=== PATIENT | male | born 1965 | race Caucasian/White ===

== ENCOUNTER 2018-09-06 18:53 | Emergency (ER) | payer SELFPAY ==
[2018-09-06 18:56] VITALS: BP 128/86; PULSE 94; RESP 16; TEMP 36.6; O2SAT 99; BMI 15.4
--- NOTE | 2018-09-06 19:02 | ED.RN ---
this nurse did not visualize bruising or swelling to area of concern by pt.
--- NOTE | 2018-09-06 19:30 | CT_ITS ---
STUDY: CT BRAIN WITHOUT CONTRAST REASON FOR EXAM: Male, 53 years old. Trauma. RADIATION DOSAGE (If Supplied By Facility): CTDIvol = ( 60.81 ) mGy, DLP = ( 1181.11 ) mGycm TECHNIQUE: Transaxial CT imaging of the brain was performed without administration of intravenous contrast material. Individualized dose optimization techniques were used for this CT. COMPARISON: None. FINDINGS: Normal soft tissue structures. Normal calvarium. Normal size ventricles and extra-axial spaces for the patient's age. Normal white matter tracts of the cerebral hemispheres. Normal basal ganglia and thalami. Normal brainstem. Normal cerebellum. There is a extra-axial low-attenuation focus within the posterior aspect of the posterior fossa which may be secondary to an arachnoid cyst or ned cisterna magna. There is no intracranial hemorrhage. There are no findings of an acute ischemic infarction. Normal visualized paranasal sinuses. CT/Brain/Head without Contrast IMPRESSION: No acute intracranial process. Electronically Signed: Raisa Michael MD at 20:03 EDT Tel , Service support ,
--- NOTE | 2018-09-06 19:30 | CT_ITS ---
STUDY: CT CHEST WITHOUT CONTRAST REASON FOR EXAM: Male, 53 years old. Trauma, fall last night. RADIATION DOSAGE (If Supplied By Facility): CTDIvol = ( 5.71 ) mGy, DLP = ( 243.16 ) mGycm TECHNIQUE: Transaxial imaging was performed without the administration of intravenous contrast material. Individualized dose optimization techniques were used for this CT. COMPARISON: July 30, 2016. FINDINGS: The lungs are hyperinflated. There are emphysematous changes. There is biapical scarring. There are calcifications of the coronary arteries. There is minimal pneumomediastinum. Normal unenhanced pulmonary arteries. Normal aorta arch and descending thoracic aorta. There are trace dependent secretions within the trachea. There are multi-level degenerative changes of the thoracic spine. There are old right posterior rib fractures. The limited images of the upper abdomen demonstrate peripheral calcifications of the abdominal aorta. CT/Chest without Contrast IMPRESSION: Pneumomediastinum, may be secondary to esophageal or tracheal bronchial perforation. Emphysema. Atherosclerosis. N.B. : The above information has been verbally conveyed by Raisa Michael MD to Jovan Ybarra MD, on 09/06/2018 20:24:40 (ET). Electronically Signed: Raisa Michael MD at 20:24 EDT Tel , Service support ,
--- NOTE | 2018-09-06 19:58 | ED.VISSUMM ---
- ER Visit Summary Date of Service: 09/06/18 Chief Complaint: Fall History of Present Illness: The patient is a 53 M who states that about 6 days ago he was walking down the road when he stepped in a hole and fell striking his head on the ground. He states he also struck his back. He believes he lost consciousness. He states that his head is recovered but he continues to have pain in the right posterior shoulder region. Denies coughing any blood or shortness of breath. He has had prior pneumothorax and rib fractures. Physical Examination: Afebrile vital signs stable Gen: Well-nourished well-developed Head: Normocephalic atraumatic Eyes: Perrl EOMI ENT: TMs clear no rhinorrhea moist mucous membranes Neck: Supple no lymphadenopathy no JVD nontender CVS: Regular rate rhythm no murmurs normal S1-S2 Respiratory: No distress clear to auscultation bilaterally chest nontender Abdomen: Soft nontender nondistended normal bowel sounds no masses Back: Tender to palpation in the right scapular rib region. No ecchymosis noted. Extremity: Nontender no edema Skin: Normal color no rash Neuro: alert orientated ?3 CN II-XII intact normal strength sensation reflexes gait cerebellar Psych: Normal affect normal mood Test Results: CT brain and noncontrasted chest was obtained. No obvious fracture is seen. He has noted small amount of pneumomediastinum. Emergency Department Course and Treatment: CT findings were discussed with the patient and he notes a significant amount of coughing recently. He is a smoker. I suspect this is related to a degree of trauma to the bronchial tree. He was placed on Augmentin for prophylaxis. He was advised on return instructions and notes understanding. Impression: 1. Right rib contusion 2. Pneumomediastinum This note was generated with [employer] dictation software. It may contain incorrect words, spelling, and punctuation that were not noted in review of the chart prior to signing ED Disposition - Plan for ED Patient: Disposition: Home or Assisted Living Chief Complaint: Fall Prescriptions: Amox/Clavulanate Tablet [Augmentin Tablet] 875 mg PO Q12H #20 tab Referrals: Darrell Moreno,Jodi Munoz [Primary Care Provider] - 1 Week Additional Instructions: Return if fever, crunching of chest, chest pain worsening or concerns
[2018-09-06 21:01] VITALS: BP 132/85; PULSE 85; RESP 14; O2SAT 99
== END 2018-09-06 21:02 | disposition home or self-care (01) ==
PROVIDERS: Emergency Provider Emergency Medicine
DX: S20.211A Contusion of right front wall of thorax, initial encounter (principal); J98.2 Interstitial emphysema; F17.200 Nicotine dependence, unspecified, uncomplicated; Z79.51 Long term (current) use of inhaled steroids; W17.2XXA Fall into hole, initial encounter; Y93.01 Activity, walking, marching and hiking; Y92.410 Unspecified street and highway as the place of occurrence of the external cause; Y99.8 Other external cause status
CPT/HCPCS: 70450; 71250; 99282

== ENCOUNTER 2019-01-30 16:48 | Emergency (ER) | payer OTHER, SELFPAY ==
[2019-01-30] VITALS (7 sets, daily range): BP systolic 109–126; BP diastolic 75–81; PULSE 105–112; RESP 16–23; TEMP 36.4–36.8; O2SAT 95–99; BMI 15.5
--- NOTE | 2019-01-30 17:06 | EKG12_ITS ---
Test Reason : SOB Blood Pressure : / mmHG Vent. Rate : 097 BPM Atrial Rate : 097 BPM P-R Int : 112 ms QRS Dur : 076 ms QT Int : 316 ms P-R-T Axes : 065 074 073 degrees QTc Int : 401 ms Normal sinus rhythm Normal ECG Confirmed by ESTEBAN MARTELL, TD ([id number]), graphic editor FIORELLA KIM ([id number]) on 01/31/2019 1:13:33 PM Referred By: FRANCIE Confirmed By:TD ORELLANA MD
--- NOTE | 2019-01-30 17:08 | ED.VISSUMM ---
- ER Visit Summary Date of Service: 01/30/19 Chief Complaint: Shortness of breath History of Present Illness: The patient is a 53 M who presents with shortness of breath that has been getting worse over the past 4 days. Patient states he is having some cough with green sputum production. Patient admits to some rhinorrhea and bilateral ear pain. Patient denies any fevers or chills. Patient denies any chest pain. Patient states his breathing is worse with exertion. Denies any lower extremity swelling. Patient denies any recent travel. Patient denies any recent surgery. Patient denies any orthopnea. Physical Examination: Vital signs are stable except for mild tachycardia of 111 and a mild tachypnea of 23. Patient is in no acute distress. Patient is afebrile. Oral mucosa is pink and moist. Neck is supple. Trachea is midline. There is no JVD noted. Heart was regular and tachycardic. Lungs showed diffuse expiratory wheezing. There is adequate respiratory effort. There is no retractions noted. Abdomen is soft and nontender. Cranial nerves II through XII are intact. There are no focal motor or sensory deficits noted. Test Results: CBC and metabolic profile were obtained and were essentially within normal limits. Chest x-ray does not show any acute cardiopulmonary process. EKG showed normal sinus rhythm with a rate of 87. There are no acute ST or T wave changes. Emergency Department Course and Treatment: Patient was given a DuoNeb aerosol and prednisone here. Patient felt better on reevaluation. Patient was instructed to follow-up with his primary care physician in 5-7 days. Patient was instructed continue with his inhaler as prescribed. Patient was given a prescription for prednisone. Patient understood and was agreeable with the plan. All questions were answered. Disposition: Discharge home Impression: COPD exacerbation This note was generated with [employer] dictation software. It may contain incorrect words, spelling, and punctuation that were not noted in review of the chart prior to signing ED Disposition - Plan for ED Patient: Disposition: Home or Assisted Living Diagnosis: COPD exacerbation Instructions: ED COPD Flare Prescriptions: predniSONE tablet 60 mg PO DAILY #15 tab Referrals: Jodi Diaz [Primary Care Provider] - 5-7 Days
[2019-01-30] MEDS: Ipratropium/Albuterol Sulfate 3 ML AMPUL.NEB INHALATION (17:22)
[2019-01-30] MEDS: predniSONE 20 MG Tablet 60 MG PO (17:31)
--- NOTE | 2019-01-30 17:35 | RAD_ITS ---
STUDY: X-RAY CHEST REASON FOR EXAM: Male, 53 years old. SOB. TECHNIQUE: PA and lateral chest. COMPARISON: 10/16/2017. FINDINGS: There is pulmonary hyperinflation, consistent with emphysematous changes. No vascular congestion or acute pulmonary inflammatory change. There is mild apical pleural thickening. There is no evidence of pleural effusion. Normal size heart. Normal mediastinum and akash. Normal visualized pulmonary arteries. Normal visualized aortic arch and descending thoracic aorta. Normal visualized thoracic spine. Old healed rib fractures are noted on the right. There is no demonstrated abnormality of the visualized soft tissue structures of the upper abdomen. RAD/Chest PA and Lateral IMPRESSION: 1. Hyperinflation consistent with COPD. No acute findings. Electronically Signed: Harika Babin MD at 19:42 EDT Tel , Service support ,
[2019-01-30 17:54] LABS: Absolute Lymphocyte Count 1.08 X10^3/ul (0.83-4.51); Basophil# 0.03 X10^3/uL; Basophil% 0.2 % (0-1); Eosinophil# 0.05 X10^3/uL; Eosinophils% 0.4 % (0-5); Hematocrit 43.1 % (40-54); Hemoglobin 14.3 g/dl (13.0-16.5); Lymphocyte # 1.08 X10^3/ul (4.0); Lymphocyte % 8.1 % (19-41); Mean Corp Hgb Conc 33.2 g/gl (32-36); Mean Corpuscular Hgb 32.6 pg (27.0-32.0); Mean Corpuscular Volume 98.2 fL (80-94); Mean Platelet Vol. 9.2 fl (6.2-12.0); Monocyte# 1.12 X10^3/uL; Monocyte% 8.4 % (0-10); Neutrophil # 10.97 X10^3/uL (2.7-7.7); Neutrophil % 82.7 % (47-70); Platelet Count 290 K/mm3 (150-450); RBC Distribution Width SD 46.8 fl (35.1-43.9); Red Blood Count 4.39 M/mm3 (4.6-6.2); White Blood Count 13.3 K/mm3 (4.4-11.0)
[2019-01-30 17:56] LABS: POSITIVE COUNT NO; POSITIVE DIFFERENTIAL NO; POSITIVE MORPHOLOGY NO
[2019-01-30 18:03] LABS: Anion Gap 4 (5-15); BUN 20 mg/dL (7-18); Calcium,Total 9.1 mg/dL (8.5-10.1); Chloride 98 mmol/L (98-107); Creatinine, Serum 0.72 mg/dL (0.70-1.30); EST Glomerular Filtration Rate 122 mL/min (>60); Est Glom Filt Rate - Afr Amer 147 mL/min (>60); Estimated Creatinine Clearance 88.75 ml/min; Glucose 101 mg/dL (74-106); Potassium 4.8 mmol/L (3.5-5.1); Sodium Level 137 mmol/L (136-145)
--- NOTE | 2019-01-30 19:31 | ED.RN ---
Called x-ray as chest x-ray was taken at 1740. CadenceMD will call radiologist and have it read now.
--- NOTE | 2019-01-30 19:32 | ED.RN ---
Per Dr. Watson, pt not a sepsis patient, COPD exacerbation. Sepsis completed.
== END 2019-01-30 20:32 | disposition home or self-care (01) ==
PROVIDERS: Emergency Provider Emergency Medicine
DX: J44.1 Chronic obstructive pulmonary disease with (acute) exacerbation (principal); Z72.0 Tobacco use; Z79.51 Long term (current) use of inhaled steroids
CPT/HCPCS: 71046; 80048; 85025; 93005; 94640; 99285; A4216

== ENCOUNTER 2019-03-26 05:32 | Inpatient (IN) | payer OTHER, SELFPAY ==
[2019-01-30 16:51] VITALS: BMI 15.5
[2019-03-26] VITALS (15 sets, daily range): BP systolic 109–139; BP diastolic 74–88; PULSE 73–121; RESP 16–22; TEMP 36.4–36.8; O2SAT 92–100; BMI 15.5; BMI 14.1; BMI 14.2
--- NOTE | 2019-03-26 05:41 | RAD_ITS ---
STUDY: X-RAY CHEST REASON FOR EXAM: Male, 53 years old. Chest pain. TECHNIQUE: AP portable chest. COMPARISON: January 30, 2019. FINDINGS: The lungs are clear and expanded. There is no demonstrated pleural abnormality. Lungs are hyperinflated. Normal size heart. Normal mediastinum and akash. Normal visualized pulmonary arteries. Normal visualized aortic arch and descending thoracic aorta. Normal visualized thoracic spine. Old right posterior rib fracture. There is no demonstrated abnormality of the visualized soft tissue structures of the upper abdomen. RAD/Chest 1 View (Portable) IMPRESSION: COPD unchanged. Electronically Signed: Bull Enriquez MD at 6:22 EDT , Service support ,
--- NOTE | 2019-03-26 05:41 | EKG12_ITS ---
Test Reason : SOB Blood Pressure : / mmHG Vent. Rate : 066 BPM Atrial Rate : 066 BPM P-R Int : 114 ms QRS Dur : 084 ms QT Int : 386 ms P-R-T Axes : 069 079 076 degrees QTc Int : 404 ms Normal sinus rhythm T-Wave Abnormaltiy: Peaked:Consider Hyperkalemia Confirmed by AUREA MARTELL, BRISEYDA ([id number]), medical transcription editor FIORELLA KIM ([id number]) on 03/28/2019 1:25:28 PM Referred By: Antonette Jeffrey Confirmed By:BRISEYDA VILLAR MD
[2019-03-26] MEDS: MethylPREDNISolone 125 MG/2 ML Vial IV (05:46)
--- NOTE | 2019-03-26 05:50 | ED.DCSUM_ITS ---
- ER Visit Summary Date of Service: 03/26/19 Chief Complaint: Shortness of breath History of Present Illness: The patient is a 53 M with shortness of breath. Symptoms started gradually over the past 2 days. Patient has a history of similar symptoms in the past with COPD. His symptoms today are associated with cough and sputum. He has occasional and intermittent rib pain from coughing. Denies any history of heart disease or blood clots. He is a smoker. Physical Examination: Afebrile and vital signs unremarkable. Pulse ox 92% on room air. Patient appears nontoxic and in no acute distress. He is thin and cachectic. Heart regular rate and rhythm. Lungs show expiratory wheeze in all ambrose. Abdomen soft. Extremities nontender with no edema. Test Results: EKG showed sinus rhythm at a rate of 66. No sign of acute ischemia or infarction pattern. Chest x-ray and blood work pending. Emergency Department Course and Treatment: Patient placed on oxygen 2 L by nasal cannula. He was monitored. EKG was unremarkable. Patient was treated with Solu-Medrol and DuoNeb while awaiting results. Chest x-ray and lab work showed no acute abnormalities. On reevaluation, wheezing has resolved. Patient attempted to ambulate on pulse ox. He dropped to 88% on room air. He felt short of breath and lightheaded. I contacted the hospitalist for admission for further care. Treatment Plan: As above Disposition: Admission Impression: 1. COPD exacerbation This note was generated with [employer] dictation software. It may contain incorrect words, spelling, and punctuation that were not noted in review of the chart prior to signing ED Disposition - Plan for ED Patient: Instructions: ED COPD Flare Prescriptions: Albuterol Inhaler [Ventolin Hfa] 1 - 2 puff INHALATION Q4H PRN PRN #1 inhaler PRN Reason: Wheezing Prednisone 10 mg PO UD #33 tab Doxycycline 100 mg PO BID #20 cap Referrals: Jodi Diaz [Primary Care Provider] -
[2019-03-26 05:52] LABS: Absolute Lymphocyte Count 2.09 X10^3/ul (0.83-4.51); Absolute Neutrophil Count 6.6 X10^3/uL (2.0-7.7); Basophil# 0.03 X10^3/uL; Basophil% 0.3 % (0-1); Eosinophil# 0.15 X10^3/uL; Eosinophils% 1.5 % (0-5); Hematocrit 41.7 % (40-54); Hemoglobin 13.8 g/dl (13.0-16.5); Lymphocyte # 2.09 X10^3/ul (4.0); Lymphocyte % 20.7 % (19-41); Mean Corp Hgb Conc 33.1 g/gl (32-36); Mean Corpuscular Hgb 31.4 pg (27.0-32.0); Mean Platelet Vol. 8.6 fl (6.2-12.0); Monocyte# 1.23 X10^3/uL; Monocyte% 12.2 % (0-10); Neutrophil # 6.59 X10^3/uL (2.7-7.7); Neutrophil % 65.2 % (47-70); Platelet Count 346 K/mm3 (150-450); RBC Distribution Width CV 13.3 % (11.6-14.6); RBC Distribution Width SD 44.6 fl (35.1-43.9); Red Blood Count 4.39 M/mm3 (4.6-6.2); White Blood Count 10.1 K/mm3 (4.4-11.0)
[2019-03-26] MEDS: Ipratropium/Albuterol Sulfate 3 ML AMPUL.NEB INHALATION ×4 (05:52→18:43)
[2019-03-26 05:53] LABS: POSITIVE COUNT NO; POSITIVE DIFFERENTIAL NO; POSITIVE MORPHOLOGY NO
[2019-03-26 06:08] LABS: Anion Gap 4 (5-15); BUN 9 mg/dL (7-18); BUN/Creat Ratio 13.7 RATIO (10-20); Calcium,Total 8.9 mg/dL (8.5-10.1); Chloride 100 mmol/L (98-107); Creatinine, Serum 0.66 mg/dL (0.70-1.30); EST Glomerular Filtration Rate 134 mL/min (>60); Est Glom Filt Rate - Afr Amer 162 mL/min (>60); Estimated Creatinine Clearance 96.82 ml/min; Glucose 107 mg/dL (74-106); Potassium 4.4 mmol/L (3.5-5.1); Sodium Level 138 mmol/L (136-145)
--- NOTE | 2019-03-26 06:51 | HP.PCM_ITS ---
Problem List (1) COPD exacerbation Status: Acute (2) Tobacco abuse Status: Chronic (3) Severe malnutrition Status: Chronic History of Present Illness Date of Admission: 03/26/19 Chief Complaint: Dyspnea The patient is a 53 y/o M w/ PMHx: Tobacco use, Chronic COPD who presents to the [facility] ED on 03/26/19 with history of progressively worsening dyspnea, wheezing, cough with increased sputum of yellow/green color without fever or chills w/ associated pleuritic chest discomfort primarily with coughing x 2 days without any recent ill contacts. He does continue to smoke ~ 1 ppd. Work-up in the ED included T 97.5, heart rate 76, BP 125/88, respiratory rate 20, 92% on room air however with exertion became hypoxic and 88%, improved to 99% on 2 L nasal cannula, CBC with W BC 10.1, hemoglobin 13.8, platelet 346 without left shift, BMP with carbon dioxide 34, glucose 107, troponin less than 0.015, EKG with no acute evidence of ischemia, chest x-ray with chronic COPD changes. In the ED patient ministered Solu-Medrol 125 mg IV x1 as well as DuoNeb therapy. Patient notes feeling mildly improved with treatments but with exertion in the ED is hypoxia. Past Medical History Past Medical History (Chronic Problems): Chronic Problems Tobacco abuse (Chronic) Severe malnutrition (Chronic) Allergies No Known Allergies Allergy (Verified 03/26/19 05:37) Home Medications: Ambulatory Orders Medication Instructions Recorded Albuterol Inhaler [Ventolin Hfa] 1 - 2 puff INHALATION Q4H PRN PRN 10/16/17 #1 inhaler Albuterol Inhaler [Ventolin Hfa] 1 - 2 puff INHALATION Q4H PRN PRN 03/26/19 #1 inhaler Budesonide/Formoterol 160/4.5 2 puff INHALATION BID 03/26/19 [Symbicort 160/4.5 Mcg Inhaler (SP)] Doxycycline 100 mg PO BID #20 cap 03/26/19 Prednisone 10 mg PO UD #33 tab 03/26/19 Surgical History: - - Hx PTX s/p chest tube placement. Psychiatric History: No pertinent psych hx Lives: Roommate Smoking Status: Current every day smoker - Approximately 1 pack/day cigarette tobacco use. Tobacco Use: Cigarettes Alcohol: Occasional - Patient drinks 1, 24 ounce beer daily. Drugs: None - *Family History Maternal History Items: - - Patient with a maternal and paternal family history of chronic lung disease, chronic COPD, both tobacco users. Paternal History Items: - - Patient with a maternal and paternal family history of chronic lung disease, chronic COPD, both tobacco users. Review of Systems Constitutional: Reports: Anorexia, Malaise, Weakness, Fatigue. Denies: Chills, Fever, Weight Change HEENT: Denies: Head Aches, Sinus Congestion, Sinus Drainage Cardiovascular: Reports: Chest Pain. Denies: Palpitations Respiratory: Reports: Cough, Shortness of Breath, Shortness of breath at rest, Shortness of breath upon exertion, Sputum production, Wheezing Gastrointestinal: Denies: Abdominal Pain, Nausea, Vomiting Genitourinary: Denies: Dysuria Musculoskeletal: Denies: Joint Pain, Joint Tenderness Skin: Denies: Rash, Wounds Neurological: Denies: Numbness, Tingling, Focal weakness Psychiatric: Denies: Anxiety, Depression, Homicidal Ideations, Suicidal Ideations Hematologic/ Lymphatic: Denies: Easy Bruising, Easy Bleeding VTE Information - Inpt Only VTE Present on Admission: No VTE Mechan Device Prophylaxis: SCD's VTE Pharm Prophylaxis ordered?: Yes Patient Problems: Active and Suspected Problems COPD exacerbation (Acute) Subjective: Seated upright in ED bed, fatigued appearance, coughing during examination. Objective: Physical Examination: General: awake, alert, oriented x 3 and cooperative, seated upright in the ED bed, fatigued appearance, no acute distress. Skin: normal color, turgor, no icterus, cyanosis. HEENT: AT/NC, EOMI, PERRLA, moderately dry MM, no carotid bruits or JVD noted. Lungs: Diffusely diminished breath sounds, greater bases, coughing with increased effort attempts, currently no rales, rhonchi or wheezing but very poor air movement. Heart: Regular rate and rhythm; no gallop, rub audible. Abdomen: soft, thin cachectic habitus, NTTP, ND, normal BS, no HSM. Extremities: no cyanosis, clubbing, or edema. Neurological: patient awake, alert, oriented x 3; cognitive function intact; pupils equally reactive to light and accomodation; cranial nerves II-XII grossly normal, moving all 4 extremities, no focal deficits, strength moderately to severely global decrease secondary to acute presentation. Psychiatric: affect appears fatigued, no acute evidence of depressive or anxiety feelings. - Physical Exam Vital Signs Temp Pulse Resp BP Pulse Ox 97.5 F L 74 16 125/88 H 99 03/26/19 05:32 03/26/19 05:53 03/26/19 05:53 03/26/19 05:32 03/26/19 05:41 Oxygen Flow Rate (L/min) 2 Oxygen Delivery Method Nasal Cannula Weight: 117 lb 15.157 oz Body Mass Index (BMI) 15.5 Laboratory Tests Past 24 Hrs 03/26/19 03/26/19 05:42 05:42 WBC 10.1 RBC 4.39 L Hgb 13.8 Hct 41.7 MCV 95.0 H MCH 31.4 MCHC 33.1 RDW 13.3 RDW Differential 44.6 H Plt Count 346 MPV 8.6 Immature Gran % (Auto) 0.100 Neut % (Auto) 65.2 Lymph % (Auto) 20.7 Evans % (Auto) 12.2 H Eos % (Auto) 1.5 Baso % (Auto) 0.3 Absolute Neuts (auto) 6.6 Absolute Lymphs (auto) 2.09 Total Counted Not Reportable Sodium 138 Potassium 4.4 Chloride 100 Carbon Dioxide 34.0 H Anion Gap 4 L BUN 9 Creatinine 0.66 L Estim Creat Clear Calc 96.82 Est GFR (MDRD) Af Amer 162 Est GFR (MDRD) Non-Af 134 BUN/Creatinine Ratio 13.7 Glucose 107 H Calcium 8.9 Troponin I < 0.015 Assessment/Plan All Active Problems COPD exacerbation (Acute) The patient is a 53 y/o M w/ PMHx: Tobacco use, Chronic COPD who presents to the [facility] ED on 03/26/19 with history of progressively worsening dyspnea, wheezing, cough with increased sputum without fever or chills w/ associated pleuritic ches t discomfort primarily with coughing x 2 days. (1) Acute on chronic COPD exacerbation w/ Hypoxia: Work-up in the ED included T 97.5, heart rate 76, BP 125/88, respiratory rate 20, 92% on room air however with exertion became hypoxic and 88%, improved to 99% on 2 L nasal cannula, CBC with W BC 10.1, hemoglobin 13.8, platelet 346 without left shift, BMP with carbon dioxide 34, glucose 107, troponin less than 0.015, EKG with no acute evidence of ischemia, chest x-ray with chronic COPD changes. Will admit to [facility], maintain on oxygen with wean as tolerated to room air, continue ATC duonebs, PRN albuterol, IV methylprednisolone, HOB, IS parameters, defer abx given afebrile, no marked WBC elevation or L shift, requested sputum cultures. (2) Tobacco Abuse: Encouraged cessation, inpatient consultation per RT, NR if desired. (3) Severe Protein Calorie Malnutrition: Evidenced per BMI, habitus, muscle and fat loss, nutrition consulted. (4) DVT Prophylaxis: SCDs, lovenox. Code Visit OBSV E&M: 18085 Initial observation care L3
[2019-03-26] MEDS: 0.9% Normal Saline 1,000 ML 125 ML IV (08:47)
[2019-03-26] MEDS: Enoxaparin 40 MG/0.4 ML Syringe SC (09:43)
[2019-03-26] MEDS: guaiFENesin 1,200 MG Tablet 1200 MG PO ×2 (09:43→21:06)
[2019-03-26] MEDS: 0.9% NaCl Peripheral Flush Adult/Peds IV (13:51)
--- NOTE | 2019-03-26 13:54 | NURSING ---
I awoke the patient at this time. When assessing vitals I noted the heart rate was fluctuating between 71-121. Patient reports a sharp chest pain to left upper chest/shoulder. Called for EKG, texted.
--- NOTE | 2019-03-26 14:56 | EKG12_ITS ---
Test Reason : CP
[2019-03-26 15:18] LABS: Magnesium 1.8 mg/dL (1.6-2.6)
[2019-03-26] MEDS: Aspirin 81 MG TAB.CHEW PO (15:31)
[2019-03-26] MEDS: MELATONIN 3 MG TABLET PO (21:07)
[2019-03-27] VITALS (16 sets, daily range): BP systolic 108–133; BP diastolic 70–89; PULSE 65–115; RESP 16–24; TEMP 36.5–36.8; O2SAT 82–97
[2019-03-27] MEDS: Albuterol 2.5 MG/3 ML VIAL.NEB. INHALATION (05:42)
[2019-03-27 07:11] LABS: Absolute Lymphocyte Count 1.37 X10^3/ul (0.83-4.51); Absolute Neutrophil Count 15.2 X10^3/uL (2.0-7.7); Basophil# 0.01 X10^3/uL; Basophil% 0.1 % (0-1); Hematocrit 40.6 % (40-54); Hemoglobin 13.6 g/dl (13.0-16.5); Lymphocyte # 1.37 X10^3/ul (4.0); Lymphocyte % 7.7 % (19-41); Mean Corp Hgb Conc 33.5 g/gl (32-36); Mean Corpuscular Volume 95.5 fL (80-94); Mean Platelet Vol. 9.1 fl (6.2-12.0); Monocyte# 1.18 X10^3/uL; Monocyte% 6.6 % (0-10); Neutrophil # 15.18 X10^3/uL (2.7-7.7); Neutrophil % 85.3 % (47-70); Platelet Count 378 K/mm3 (150-450); RBC Distribution Width CV 13.3 % (11.6-14.6); RBC Distribution Width SD 46.3 fl (35.1-43.9); Red Blood Count 4.25 M/mm3 (4.6-6.2); White Blood Count 17.8 K/mm3 (4.4-11.0)
[2019-03-27 07:12] LABS: POSITIVE COUNT NO; POSITIVE DIFFERENTIAL NO; POSITIVE MORPHOLOGY NO
[2019-03-27] MEDS: Ipratropium/Albuterol Sulfate 3 ML AMPUL.NEB INHALATION ×5 (07:16→22:54)
[2019-03-27 07:31] LABS: Anion Gap 5 (5-15); BUN 16 mg/dL (7-18); BUN/Creat Ratio 35.6 RATIO (10-20); Chloride 102 mmol/L (98-107); Creatinine, Serum 0.45 mg/dL (0.70-1.30); EST Glomerular Filtration Rate 208 mL/min (>60); Est Glom Filt Rate - Afr Amer 251 mL/min (>60); Estimated Creatinine Clearance 129.55 ml/min; Glucose 140 mg/dL (74-106); Potassium 4.5 mmol/L (3.5-5.1); Sodium Level 137 mmol/L (136-145)
--- NOTE | 2019-03-27 08:13 | PCM.CONS.PUL ---
Reason for Consult Date of Consultation: 03/27/19 Reason for Consultation: COPD exacerbation History of Present Illness: The patient is a 53-year-old male, with a history as outlined below, who presented to the emergency department on March 26 with shortness of breath and productive cough. The patient has a known history of COPD and continuous tobacco dependency. Pulmonary function studies completed in December 2014 revealed evidence of severe COPD with an FEV1 of 45% of predicted. There was no significant bronchodilator response. There was evidence of air trapping and reduction in diffusing capacity as well. The patient reports that he has baseline exertional shortness of breath, which progressed over the days leading up to his hospitalization. In addition, he reports that his current cough including sputum production, is out of the ordinary for him. He does have an extensive smoking history of approximately 80 pack years, but has cut back recently to smoking 1 pack of cigarettes per day. He is currently employed working as a cook at the [employer]. He is insistent that he plans to quit smoking completely upon discharge from the hospital. The patient does not currently utilize supplemental oxygen at his baseline. He has never been evaluated by a manifest/order organizer print orders previously. The patient is currently prescribed both Symbicort and as needed albuterol on an outpatient basis. He states that he has been utilizing his Symbicort in excess of what it is currently prescribed, along with his rescue inhaler multiple times per day. He also reports that he has been slowly losing weight unintentionally, but is unable to quantify exactly how much weight in particular. On presentation to the emergency department, the patient was noted to be afebrile and hemodynamically stable. He was initially maintaining appropriate oxygen saturations on room air. Despite this, he was placed on 2 L/min of supplemental oxygen. Laboratory evaluation revealed no evidence of a leukocytosis. Chemistry profile was significant for an elevated serum bicarbonate of 34. Troponin was negative. Plain film chest x-ray revealed hyperinflated lung ambrose without acute cardiopulmonary process. The patient received aerosol treatments and IV steroids in the emergency department. Per ED documentation, upon ambulating the emergency department, the patient dropped his saturations to 88% on room air. He was subsequently admitted to the hospital for further management. Past Medical History Past Medical History (Chronic Problems): Chronic Problems Tobacco abuse (Chronic) Severe malnutrition (Chronic) Allergies No Known Allergies Allergy (Verified 03/26/19 05:37) Home Medications: Ambulatory Orders Medication Instructions Recorded Albuterol Inhaler [Ventolin Hfa] 1 - 2 puff INHALATION Q4H PRN PRN 10/16/17 #1 inhaler Budesonide/Formoterol 160/4.5 2 puff INHALATION BID 03/26/19 [Symbicort 160/4.5 Mcg Inhaler (SP)] Surgical History: - - Hx PTX s/p chest tube placement. Psychiatric History: No pertinent psych hx Lives: Roommate Smoking Status: Current every day smoker Tobacco Use: Cigarettes Alcohol: Occasional - Patient drinks 1, 24 ounce beer daily. Drugs: None - *Family History Maternal History Items: - - Patient with a maternal and paternal family history of chronic lung disease, chronic COPD, both tobacco users. Paternal History Items: - - Patient with a maternal and paternal family history of chronic lung disease, chronic COPD, both tobacco users. Review of Systems Constitutional: Reports: Weight Change Eyes: Denies: Blurred vision, Double vision HEENT: Denies: Head Aches, Sinus Congestion, Sinus Drainage Cardiovascular: Reports: Chest Tightness Respiratory: Reports: Cough, Shortness of breath upon exertion, Sputum production, Wheezing Gastrointestinal: Denies: Abdominal Pain, Nausea, Vomiting Genitourinary: Denies: Dysuria Musculoskeletal: Denies: Joint Pain, Joint Tenderness Skin: Denies: Rash, Wounds Neurological: Denies: Numbness, Tingling, Focal weakness Psychiatric: Denies: Anxiety, Depression, Homicidal Ideations, Suicidal Ideations Hematologic/ Lymphatic: Denies: Easy Bruising, Easy Bleeding Patient Problems: Active and Suspected Problems COPD exacerbation (Acute) Objective: The patient's most recent lab work, culture data and imaging studies have all been personally reviewed. Sputum culture is pending. - Physical Exam General: Alert, Cooperative, No apparent distress HEENT: Atraumatic, PERRLA, Normocephalic Oral: No Gingival or Mucosal Lesions/ Ulcerations Neck: Supple, No Nodes, Trachea Midline Lungs: Diminished, - - Bilateral expiratory wheezes present. Prolonged expiratory phase. Increased AP diameter. Cardiovascular: Regular rate, Regular Rhythm, Normal S1, Normal S2, No murmurs Abdomen: Bowel Sounds Present, Soft, Non Tender Extremities: No clubbing, No cyanosis, No edema Skin: No breakdown Musculoskeletal: No Tenderness to Palpation of Joints or Extremities, Cachexia Lymphatic: No Cervical, Supraclavicular, or Inguinal Adenopathy Neurological: Cranial nerves II-XII grossly intact, Neuro grossly intact Psych/Mental Status: Alert and oriented to time, place, person, mood and affect Vital Signs Temp Pulse Resp BP Pulse Ox 97.7 F L 81 18 133/81 H 94 03/27/19 05:22 03/27/19 07:54 03/27/19 07:16 03/27/19 05:22 03/27/19 07:16 Oxygen Flow Rate (L/min) 2 Oxygen Delivery Method Nasal Cannula Weight: 107 lb 9.616 oz Body Mass Index (BMI) 14.1 Intake and Output for Last 24 Hours 03/25/19 03/26/19 03/27/19 23:59 23:59 23:59 Intake Total 2198 / 2198 800 / 800 Output Total 900 / 900 425 / 425 Balance 1298 / 1298 375 / 375 Laboratory Tests Past 24 Hrs 03/26/19 03/26/19 03/26/19 14:25 14:25 17:15 WBC RBC Hgb Hct MCV MCH MCHC RDW RDW Differential Plt Count MPV Immature Gran % (Auto) Neut % (Auto) Lymph % (Auto) [place] % (Auto) Eos % (Auto) Baso % (Auto) Absolute Neuts (auto) Absolute Lymphs (auto) Total Counted Sodium Potassium Chloride Carbon Dioxide Anion Gap BUN Creatinine Estim Creat Clear Calc Est GFR (MDRD) Af Amer Est GFR (MDRD) Non-Af BUN/Creatinine Ratio Glucose Calcium Magnesium 1.8 Troponin I < 0.015 < 0.015 03/26/19 03/27/19 03/27/19 20:30 06:28 06:28 WBC 17.8 H RBC 4.25 L Hgb 13.6 Hct 40.6 MCV 95.5 H MCH 32.0 MCHC 33.5 RDW 13.3 RDW Differential 46.3 H Plt Count 378 MPV 9.1 Immature Gran % (Auto) 0.300 Neut % (Auto) 85.3 H Lymph % (Auto) 7.7 L [place] % (Auto) 6.6 Eos % (Auto) 0.0 Baso % (Auto) 0.1 Absolute Neuts (auto) 15.2 H Absolute Lymphs (auto) 1.37 Total Counted Not Reportable Sodium 137 Potassium 4.5 Chloride 102 Carbon Dioxide 30.0 Anion Gap 5 BUN 16 Creatinine 0.45 L Estim Creat Clear Calc 129.55 Est GFR (MDRD) Af Amer 251 Est GFR (MDRD) Non-Af 208 BUN/Creatinine Ratio 35.6 H Glucose 140 H Calcium 9.0 Magnesium Troponin I < 0.015 Clinical Impression(s) from Imaging Studies Chest X-Ray 03/26/19 05:41 IMPRESSION: COPD unchanged. Electronically Signed: Bull Enriquez MD at 6:22 EDT , Service support , Assessment/Plan All Active Problems COPD exacerbation (Acute) RECOMMENDATIONS: 1. Continue scheduled and as needed bronchodilators. 2. Transition from IV steroids to prednisone 40 mg daily by mouth. Plan for taper at discharge. 3. Obtain and send sputum for culture. 4. Check respiratory viral panel. 5. Perform ambulatory walking oximetry. 6. Wean supplemental oxygen as tolerated. Encourage incentive spirometer use. 7. The patient will need to be seen in the pulmonary medicine clinic within 2 weeks of discharge. 8. At the time of his discharge, would recommend that he be continued on Symbicort. However, I would also plan to add Spiriva Respimat to his inhaler regimen. 9. As of next month, the patient will be a candidate for yearly low-dose CT scanning of his chest. This can be ordered as an outpatient as well. IMPRESSIONS: 1. Baseline severe COPD with exacerbation/acute hypoxemic respiratory insufficiency The patient did have pulmonary function studies completed in 2014, which at that time, did demonstrate evidence of severe COPD. The patient has continued to smoke extensively since that time. It is highly likely that his current exacerbation was precipitated by his continuous tobacco dependency along with suboptimal treatment of his baseline COPD. Based upon the patient's symptoms and frequency of rescue inhaler use, he should be on a triple therapy inhaler regimen. While there was no evidence of pneumonia on plain film chest imaging, the patient does have a productive cough, which could raise the possibility for tracheobronchitis. In addition to checking a sputum culture, would also plan to check a respiratory viral panel as well. In the interim, would plan to continue scheduled bronchodilators. The patient's IV steroids can be transitioned to prednisone 40 mg daily by mouth. The patient undoubtedly needs to follow-up closely in the pulmonary medicine clinic so that repeat PFTs can be obtained and his baseline inhaler regimen optimized. Smoking cessation is strongly advisable. In addition, given that the patient will soon be 54 years old next month, he would be a candidate for yearly low-dose CT scanning of the chest. This can be accomplished on an outpatient basis as well. It is very possible that the patient may have had an exertional oxygen requirement even prior to his hospitalization. I have asked that the nurse perform a room air ambulatory pulse ox to assess for the patient's exertional oxygen need. 2. Continuous tobacco dependency The patient was counseled extensively regarding the deleterious effects of ongoing tobacco use, including modalities which could be utilized to achieve a smoke-free lifestyle. Orders for nicotine replacement therapy have been placed while the patient is admitted to the hospital. This note was generated with [employer] dictation software. It may contain incorrect words, spelling, and punctuation that were not noted in checking the note before signing. Code Visit Inpatient E&M: 12911 Init Hosp L3
--- NOTE | 2019-03-27 08:18 | CON.PCM_ITS ---
Reason for Consult Date of Consultation: 03/27/19 Reason for Consultation: COPD exacerbation History of Present Illness: The patient is a 53-year-old male, with a history as outlined below, who presented to the emergency department on March 26 with shortness of breath and productive cough. The patient has a known history of COPD and continuous tobacco dependency. Pulmonary function studies completed in December 2014 revealed evidence of severe COPD with an FEV1 of 45% of predicted. There was no significant bronchodilator response. There was evidence of air trapping and reduction in diffusing capacity as well. The patient reports that he has baseline exertional shortness of breath, which progressed over the days leading up to his hospitalization. In addition, he reports that his current cough including sputum production, is out of the ordinary for him. He does have an extensive smoking history of approximately 80 pack years, but has cut back recently to smoking 1 pack of cigarettes per day. He is currently employed working as a cook at the [employer]. He is insistent that he plans to quit smoking completely upon discharge from the hospital. The patient does not currently utilize supplemental oxygen at his baseline. He has never been evaluated by a learning services coordinator previously. The patient is currently prescribed both Symbicort and as needed albuterol on an outpatient basis. He states that he has been utilizing his Symbicort in excess of what it is currently p rescribed, along with his rescue inhaler multiple times per day. He also reports that he has been slowly losing weight unintentionally, but is unable to quantify exactly how much weight in particular. On presentation to the emergency department, the patient was noted to be afebrile and hemodynamically stable. He was initially maintaining appropriate oxygen saturations on room air. Despite this, he was placed on 2 L/min of supplemental oxygen. Laboratory evaluation revealed no evidence of a leukocytosis. Chemistry profile was significant for an elevated serum bicarbonate of 34. Troponin was negative. Plain film chest x-ray revealed hyperinflated lung ambrose without acute cardiopulmonary process. The patient received aerosol treatments and IV steroids in the emergency department. Per ED documentation, upon ambulating the emergency department, the patient dropped his saturations to 88% on room air. He was subsequently admitted to the hospital for further management. Past Medical History Past Medical History (Chronic Problems): Chronic Problems Tobacco abuse (Chronic) Severe malnutrition (Chronic) Allergies No Known Allergies Allergy (Verified 05/21/19 05:37) Home Medications: Ambulatory Orders Medication Instructions Recorded Albuterol Inhaler [Ventolin Hfa] 1 - 2 puff INHALATION Q4H PRN PRN 10/16/17 #1 inhaler Budesonide/Formoterol 160/4.5 2 puff INHALATION BID 03/26/19 [Symbicort 160/4.5 Mcg Inhaler (SP)] Surgical History: - - Hx PTX s/p chest tube placement. Psychiatric History: No pertinent psych hx Lives: Roommate Smoking Status: Current every day smoker Tobacco Use: Cigarettes Alcohol: Occasional - Patient drinks 1, 24 ounce beer daily. Drugs: None - *Family History Maternal History Items: - - Patient with a maternal and paternal family history of chronic lung disease, chronic COPD, both tobacco users. Paternal History Items: - - Patient with a maternal and paternal family history of chronic lung disease, chronic COPD, both tobacco users. Review of Systems Constitutional: Reports: Weight Change Eyes: Denies: Blurred vision, Double vision HEENT: Denies: Head Aches, Sinus Congestion, Sinus Drainage Cardiovascular: Reports: Chest Tightness Respiratory: Reports: Cough, Shortness of breath upon exertion, Sputum production, Wheezing Gastrointestinal: Denies: Abdominal Pain, Nausea, Vomiting Genitourinary: Denies: Dysuria Musculoskeletal: Denies: Joint Pain, Joint Tenderness Skin: Denies: Rash, Wounds Neurological: Denies: Numbness, Tingling, Focal weakness Psychiatric: Denies: Anxiety, Depression, Homicidal Ideations, Suicidal Ideations Hematologic/ Lymphatic: Denies: Easy Bruising, Easy Bleeding Patient Problems: Active and Suspected Problems COPD exacerbation (Acute) Objective: The patient's most recent lab work, culture data and imaging studies have all been personally reviewed. Sputum culture is pending. - Physical Exam General: Alert, Cooperative, No apparent distress HEENT: Atraumatic, PERRLA, Normocephalic Oral: No Gingival or Mucosal Lesions/ Ulcerations Neck: Supple, No Nodes, Trachea Midline Lungs: Diminished, - - Bilateral expiratory wheezes present. Prolonged expiratory phase. Increased AP diameter. Cardiovascular: Regular rate, Regular Rhythm, Normal S1, Normal S2, No murmurs Abdomen: Bowel Sounds Present, Soft, Non Tender Extremities: No clubbing, No cyanosis, No edema Skin: No breakdown Musculoskeletal: No Tenderness to Palpation of Joints or Extremities, Cachexia Lymphatic: No Cervical, Supraclavicular, or Inguinal Adenopathy Neurological: Cranial nerves II-XII grossly intact, Neuro grossly intact Psych/Mental Status: Alert and oriented to time, place, person, mood and affect Vital Signs Temp Pulse Resp BP Pulse Ox 97.7 F L 81 18 133/81 H 94 03/27/19 05:22 03/27/19 07:54 03/27/19 07:16 03/27/19 05:22 03/27/19 07:16 Oxygen Flow Rate (L/min) 2 Oxygen Delivery Method Nasal Cannula Weight: 107 lb 9.616 oz Body Mass Index (BMI) 14.1 Intake and Output for Last 24 Hours 03/25/19 03/26/19 03/27/19 23:59 23:59 23:59 Intake Total 2198 / 2198 800 / 800 Output Total 900 / 900 425 / 425 Balance 1298 / 1298 375 / 375 Laboratory Tests Past 24 Hrs 03/26/19 03/26/19 03/26/19 14:25 14:25 17:15 WBC RBC Hgb Hct MCV MCH MCHC RDW RDW Differential Plt Count MPV Immature Gran % (Auto) Neut % (Auto) Lymph % (Auto) [place] % (Auto) Eos % (Auto) Baso % (Auto) Absolute Neuts (auto) Absolute Lymphs (auto) Total Counted Sodium Potassium Chloride Carbon Dioxide Anion Gap BUN Creatinine Estim Creat Clear Calc Est GFR (MDRD) Af Amer Est GFR (MDRD) Non-Af BUN/Creatinine Ratio Glucose Calcium Magnesium 1.8 Troponin I < 0.015 < 0.015 03/26/19 03/27/19 03/27/19 20:30 06:28 06:28 WBC 17.8 H RBC 4.25 L Hgb 13.6 Hct 40.6 MCV 95.5 H MCH 32.0 MCHC 33.5 RDW 13.3 RDW Differential 46.3 H Plt Count 378 MPV 9.1 Immature Gran % (Auto) 0.300 Neut % (Auto) 85.3 H Lymph % (Auto) 7.7 L [place] % (Auto) 6.6 Eos % (Auto) 0.0 Baso % (Auto) 0.1 Absolute Neuts (auto) 15.2 H Absolute Lymphs (auto) 1.37 Total Counted Not Reportable Sodium 137 Potassium 4.5 Chloride 102 Carbon Dioxide 30.0 Anion Gap 5 BUN 16 Creatinine 0.45 L Estim Creat Clear Calc 129.55 Est GFR (MDRD) Af Amer 251 Est GFR (MDRD) Non-Af 208 BUN/Creatinine Ratio 35.6 H Glucose 140 H Calcium 9.0 Magnesium Troponin I < 0.015 Clinical Impression(s) from Imaging Studies Chest X-Ray 03/26/19 05:41 IMPRESSION: COPD unchanged. Electronically Signed: Bull Enriquez MD at 6:22 EDT , Service support , Assessment/Plan All Active Problems COPD exacerbation (Acute) RECOMMENDATIONS: 1. Continue scheduled and as needed bronchodilators. 2. Transition from IV steroids to prednisone 40 mg daily by mouth. Plan for taper at discharge. 3. Obtain and send sputum for culture. 4. Check respiratory viral panel. 5. Perform ambulatory walking oximetry. 6. Wean supplemental oxygen as tolerated. Encourage incentive spirometer use. 7. The patient will need to be seen in the pulmonary medicine clinic within 2 weeks of discharge. 8. At the time of his discharge, would recommend that he be continued on Symbic ort. However, I would also plan to add Spiriva Respimat to his inhaler regimen. 9. As of next month, the patient will be a candidate for yearly low-dose CT scanning of his chest. This can be ordered as an outpatient as well. IMPRESSIONS: 1. Baseline severe COPD with exacerbation/acute hypoxemic respiratory insufficiency The patient did have pulmonary function studies completed in 2014, which at that time, did demonstrate evidence of severe COPD. The patient has continued to smoke extensively since that time. It is highly likely that his current exacerbation was precipitated by his continuous tobacco dependency along with suboptimal treatment of his baseline COPD. Based upon the patient's symptoms and frequency of rescue inhaler use, he should be on a triple therapy inhaler regimen. While there was no evidence of pneumonia on plain film chest imaging, the patient does have a productive cough, which could raise the possibility for tracheobronchitis. In addition to checking a sputum culture, would also plan to check a respiratory viral panel as well. In the interim, would plan to continue scheduled bronchodilators. The patient's IV steroids can be transitioned to prednisone 40 mg daily by mouth. The patient undoubtedly needs to follow-up closely in the pulmonary medicine clinic so that repeat PFTs can be obtained and his baseline inhaler regimen optimized. Smoking cessation is strongly advisable. In addition, given that the patient will soon be 54 years old next month, he would be a candidate for yearly low-dose CT scanning of the chest. This can be accomplished on an outpatient basis as well. It is very possible that the patient may have had an exertional oxygen requirement even prior to his hospitalization. I have asked that the nurse perform a room air ambulatory pulse ox to assess for the patient's exertional oxygen need. 2. Continuous tobacco dependency The patient was counseled extensively regarding the deleterious effects of ongoing tobacco use, including modalities which could be utilized to achieve a smoke-free lifestyle. Orders for nicotine replacement therapy have been placed while the patient is admitted to the hospital. This note was generated with [employer]20/[employer] dictation software. It may contain incorrect words, spelling, and punctuation that were not noted in checking the note before signing. Code Visit Inpatient E&M: 31266 Init Hosp L3
[2019-03-27] MEDS: Aspirin 81 MG TAB.CHEW PO (09:12)
[2019-03-27] MEDS: Enoxaparin 40 MG/0.4 ML Syringe SC (09:12)
[2019-03-27] MEDS: guaiFENesin 1,200 MG Tablet 1200 MG PO ×2 (09:12→23:04)
--- NOTE | 2019-03-27 09:52 | PCM.PN.HOSP ---
Patient Problems: Active and Suspected Problems COPD exacerbation (Acute) Subjective: Patient notes feeling improved since day prior and states he has been up and walking but requiring oxygen therapy with still some expiratory wheezing on examination. Patient did have some chest discomfort the day prior but has not had none since and discussed results including unremarkable serial enzymes as well as unremarkable telemetry and EKG. Patient amenable to following with pulmonary therapy with consultation placed to assure early follow-up available in their office. Patient denies fevers, chills, nausea, emesis, abdominal pain, recurrent or worsened chest pain or dyspnea. Objective: Physical Examination: General: awake, alert, oriented x 3 and cooperative, seated upright in the bed, improved appearance, no acute distress. Skin: normal color, turgor, no icterus, cyanosis. HEENT: AT/NC, EOMI, PERRLA, improved MMM. Lungs: Mildly improved but remains severely diffusely diminished, greater bases, no current coughing with increased effort, soft expiratory wheezes noted primarily anteriorly. Heart: Regular rate and rhythm; no gallop, rub audible. Abdomen: soft, thin cachectic habitus, NTTP, ND, normal BS. Extremities: no cyanosis, clubbing, or edema. Neurological: patient awake, alert, oriented x 3; cognitive function intact; pupils equally reactive to light and accomodation; cranial nerves II-XII grossly normal, moving all 4 extremities, no focal deficits, strength moderately to severely global decrease secondary to acute presentation. Psychiatric: affect appears improved, normal, no acute evidence of depressive or anxiety feelings. Vitals/I&O's: Vital Signs Temp Pulse Resp BP Pulse Ox 98.3 F 72 18 129/89 H 82 03/27/19 08:15 03/27/19 08:15 03/27/19 08:15 03/27/19 08:15 03/27/19 09:20 Oxygen Flow Rate (L/min) 2 Oxygen Delivery Method Nasal Cannula Weight: 107 lb 9.616 oz Body Mass Index (BMI) 14.1 Intake and Output for Last 24 Hours 03/25/19 03/26/19 03/27/19 23:59 23:59 23:59 Intake Total 2198 / 2198 800 / 800 Output Total 900 / 900 425 / 425 Balance 1298 / 1298 375 / 375 Laboratory Results 03/26/19 14:25: Troponin I < 0.015 03/26/19 14:25: Magnesium 1.8 03/26/19 17:15: Troponin I < 0.015 03/26/19 20:30: Troponin I < 0.015 03/27/19 06:28: Sodium 137, Potassium 4.5, Chloride 102, Carbon Dioxide 30.0, Anion Gap 5, BUN 16, Creatinine 0.45 L, Estim Creat Clear Calc 129.55, Est GFR (MDRD) Af Amer 251, Est GFR (MDRD) Non-Af 208, BUN/Creatinine Ratio 35.6 H, Glucose 140 H, Calcium 9.0 03/27/19 06:28: WBC 17.8 H, RBC 4.25 L, Hgb 13.6, Hct 40.6, MCV 95.5 H, MCH 32.0, MCHC 33.5, RDW 13.3, RDW Differential 46.3 H, Plt Count 378, MPV 9.1, Immature Gran % (Auto) 0.300, Neut % (Auto) 85.3 H, Lymph % (Auto) 7.7 L, [place] % (Auto) 6.6, Eos % (Auto) 0.0, Baso % (Auto) 0.1, Absolute Neuts (auto) 15.2 H, Absolute Lymphs (auto) 1.37, Total Counted Not Reportable Current Medications Acetaminophen (Tylenol) 650 mg PO Q6H PRN PRN PRN Reason: Non-cardiac pain (mod-severe) Al Hydroxide/Mg Hydroxide (Mylanta Ii) 15 - 30 ml PO Q4H PRN PRN PRN Reason: INDIGESTION Albuterol Sulfate (Ventolin Aerosols) 2.5 mg INHALATION Q2H PRN PRN PRN Reason: dyspnea, wheezing Last Admin: 03/27/19 05:42 Dose: 2.5 mg Albuterol/Ipratropium (Duoneb) 3 ml INHALATION Q4HWA.RT [facility] Last Admin: 03/27/19 07:16 Dose: 3 ml Aspirin (Aspirin, Baby) 81 mg PO DAILY@0800 [facility] Last Admin: 03/27/19 09:12 Dose: 81 mg Dextrose (D50w Syringe) 0 gm IV X1 PRN; Protocol PRN Reason: Hypoglycemia Enoxaparin Sodium (Lovenox) 40 mg SC DAILY@1000 [facility] Last Admin: 03/27/19 09:12 Dose: 40 mg Glucagon () 1 mg IM .X1 PRN PRN Reason: Hypoglycemia Guaifenesin (Mucinex) 1,200 mg PO BID [facility] Last Admin: 03/27/19 09:12 Dose: 1,200 mg Hydralazine HCl (Apresoline Iv) 10 mg IV Q4H PRN PRN PRN Reason: SBP > 160 Melatonin (Melatonin) 3 mg PO QHS PRN PRN PRN Reason: INSOMNIA Last Admin: 03/26/19 21:07 Dose: 3 mg Nicotine (Nicoderm Cq (Pbkc)) 21 mg TRANSDERM. DAILY [facility] Nutritional Formula (Lactose Free) (Ensure Enlive) 120 ml PO 4X/DAY [facility] Last Admin: 03/27/19 09:12 Dose: 120 ml Ondansetron HCl (Zofran) 4 mg IV Q8H PRN PRN PRN Reason: NAUSEA/VOMITING Prednisone () 40 mg PO DAILY@0800 [facility] Sodium Chloride () 5 - 15 ml IV UD PRN PRN Reason: SALINE FLUSH Last Admin: 03/26/19 13:51 Dose: 10 ml Medical Necessity - Tobacco Use Smoking Status: Current every day smoker Tobacco Use: Cigarettes Assessment/Plan All Active Problems COPD exacerbation (Acute) The patient is a 53 y/o M w/ PMHx: Tobacco use, Chronic COPD who presents to the [facility] ED on 03/26/19 with history of progressively worsening dyspnea, wheezing, cough with increased sputum without fever or chills w/ associated pleuritic chest discomfort primarily with coughing x 2 days. (1) Acute on chronic COPD exacerbation w/ Hypoxia: Work-up in the ED included T 97.5, heart rate 76, BP 125/88, respiratory rate 20, 92% on room air however with exertion became hypoxic and 88%, improved to 99% on 2 L nasal cannula, CBC with W BC 10.1, hemoglobin 13.8, platelet 346 without left shift, BMP with carbon dioxide 34, glucose 107, troponin less than 0.015, EKG with no acute evidence of ischemia, chest x-ray with chronic COPD changes. Will admit to [facility], maintain on oxygen with wean as tolerated to room air, continue ATC duonebs, PRN albuterol, IV methylprednisolone-->de-escalate 5/22/19 to prednisone therapy, HOB, IS parameters, defer abx given afebrile, no marked WBC elevation or L shift, requested sputum cultures. Dr. Castellon consulted, recommendation to continue current inpatient regimen as well as check a respiratory viral panel, obtain oxygenation ambulatory walking prior to discharge, follow-up in pulmonary office within 1 to 2 weeks, continue Symbicort but also add Spiriva Respimat to his inhaler regimen upon discharge. (2) Chest Pain, suspected atypical, musculoskeletal secondary to coughing with acute #1 presentation: EKG repeats with no acute evidence of ischemia, telemetry without market event, CXR w/ no acute cardiopulmonary findings aside from chronic COPD changes, cardiac enzymes serial trending normal. ASA, NG, morphine. (3) Tobacco Abuse: Encouraged cessation, inpatient consultation per RT, NR if desired. (4) Severe Protein Calorie Malnutrition: Evidenced per BMI, habitus, muscle and fat loss, nutrition consulted. (5) DVT Prophylaxis: SCDs, lovenox. Code Visit Inpatient E&M: 55101 Subs Hosp L3
[2019-03-27] MEDS: predniSONE 20 MG Tablet 40 MG PO (09:57)
--- NOTE | 2019-03-27 09:57 | PN_ITS ---
Patient Problems: Active and Suspected Problems COPD exacerbation (Acute) Subjective: Patient notes feeling improved since day prior and states he has been up and walking but requiring oxygen therapy with still some expiratory wheezing on examination. Patient did have some chest discomfort the day prior but has not had none since and discussed results including unremarkable serial enzymes as well as unremarkable telemetry and EKG. Patient amenable to following with pulmonary therapy with consultation placed to assure early follow-up available in their office. Patient denies fevers, chills, nausea, emesis, abdominal pain, recurrent or worsened chest pain or dyspnea. Objective: Physical Examination: General: awake, alert, oriented x 3 and cooperative, seated upright in the bed, improved appearance, no acute distress. Skin: normal color, turgor, no icterus, cyanosis. HEENT: AT/NC, EOMI, PERRLA, improved MMM. Lungs: Mildly improved but remains severely diffusely diminished, greater bases, no current coughing with increased effort, soft expiratory wheezes noted primarily anteriorly. Heart: Regular rate and rhythm; no gallop, rub audible. Abdomen: soft, thin cachectic habitus, NTTP, ND, normal BS. Extremities: no cyanosis, clubbing, or edema. Neurological: patient awake, alert, oriented x 3; cognitive function intact; pupils equally reactive to light and accomodation; cranial nerves II-XII grossly normal, moving all 4 extremities, no focal deficits, strength moderately to severely global decrease secondary to acute presentation. Psychiatric: affect appears improved, normal, no acute evidence of depressive or anxiety feelings. Vitals/I&O's: Vital Signs Temp Pulse Resp BP Pulse Ox 98.3 F 72 18 129/89 H 82 03/27/19 08:15 03/27/19 08:15 03/27/19 08:15 03/27/19 08:15 03/27/19 09:20 Oxygen Flow Rate (L/min) 2 Oxygen Delivery Method Nasal Cannula Weight: 107 lb 9.616 oz Body Mass Index (BMI) 14.1 Intake and Output for Last 24 Hours 03/25/19 03/26/19 03/27/19 23:59 23:59 23:59 Intake Total 2198 / 2198 800 / 800 Output Total 900 / 900 425 / 425 Balance 1298 / 1298 375 / 375 Laboratory Results 03/26/19 14:25: Troponin I < 0.015 03/26/19 14:25: Magnesium 1.8 03/26/19 17:15: Troponin I < 0.015 03/26/19 20:30: Troponin I < 0.015 03/27/19 06:28: Sodium 137, Potassium 4.5, Chloride 102, Carbon Dioxide 30.0, Anion Gap 5, BUN 16, Creatinine 0.45 L, Estim Creat Clear Calc 129.55, Est GFR (MDRD) Af Amer 251, Est GFR (MDRD) Non-Af 208, BUN/Creatinine Ratio 35.6 H, Glucose 140 H, Calcium 9.0 03/27/19 06:28: WBC 17.8 H, RBC 4.25 L, Hgb 13.6, Hct 40.6, MCV 95.5 H, MCH 32.0, MCHC 33.5, RDW 13.3, RDW Differential 46.3 H, Plt Count 378, MPV 9.1, Immature Gran % (Auto) 0.300, Neut % (Auto) 85.3 H, Lymph % (Auto) 7.7 L, [place] % (Auto) 6.6, Eos % (Auto) 0.0, Baso % (Auto) 0.1, Absolute Neuts (auto) 15.2 H, Absolute Lymphs (auto) 1.37, Total Counted Not Reportable Current Medications Acetaminophen (Tylenol) 650 mg PO Q6H PRN PRN PRN Reason: Non-cardiac pain (mod-severe) Al Hydroxide/Mg Hydroxide (Mylanta Ii) 15 - 30 ml PO Q4H PRN PRN PRN Reason: INDIGESTION Albuterol Sulfate (Ventolin Aerosols) 2.5 mg INHALATION Q2H PRN PRN PRN Reason: dyspnea, wheezing Last Admin: 03/27/19 05:42 Dose: 2.5 mg Albuterol/Ipratropium (Duoneb) 3 ml INHALATION Q4HWA.RT [facility] Last Admin: 03/27/19 07:16 Dose: 3 ml Aspirin (Aspirin, Baby) 81 mg PO DAILY@0800 [facility] Last Admin: 03/27/19 09:12 Dose: 81 mg Dextrose (D50w Syringe) 0 gm IV X1 PRN; Protocol PRN Reason: Hypoglycemia Enoxaparin Sodium (Lovenox) 40 mg SC DAILY@1000 [facility] Last Admin: 03/27/19 09:12 Dose: 40 mg Glucagon () 1 mg IM .X1 PRN PRN Reason: Hypoglycemia Guaifenesin (Mucinex) 1,200 mg PO BID [facility] Last Admin: 03/27/19 09:12 Dose: 1,200 mg Hydralazine HCl (Apresoline Iv) 10 mg IV Q4H PRN PRN PRN Reason: SBP > 160 Melatonin (Melatonin) 3 mg PO QHS PRN PRN PRN Reason: INSOMNIA Last Admin: 03/26/19 21:07 Dose: 3 mg Nicotine (Nicoderm Cq (Pbkc)) 21 mg TRANSDERM. DAILY [facility] Nutritional Formula (Lactose Free) (Ensure Enlive) 120 ml PO 4X/DAY [facility] Last Admin: 03/27/19 09:12 Dose: 120 ml Ondansetron HCl (Zofran) 4 mg IV Q8H PRN PRN PRN Reason: NAUSEA/VOMITING Prednisone () 40 mg PO DAILY@0800 [facility] Sodium Chloride () 5 - 15 ml IV UD PRN PRN Reason: SALINE FLUSH Last Admin: 03/26/19 13:51 Dose: 10 ml Medical Necessity - Tobacco Use Smoking Status: Current every day smoker Tobacco Use: Cigarettes Assessment/Plan All Active Problems COPD exacerbation (Acute) The patient is a 53 y/o M w/ PMHx: Tobacco use, Chronic COPD who presents to the [facility] ED on 03/26/19 with history of progressively worsening dyspnea, wheezing, cough with increased sputum without fever or chills w/ associated pleuritic chest discomfort primarily with coughing x 2 days. (1) Acute on chronic COPD exacerbation w/ Hypoxia: Work-up in the ED included T 97.5, heart rate 76, BP 125/88, respiratory rate 20, 92% on room air however with exertion became hypoxic and 88%, improved to 99% on 2 L nasal cannula, CBC with W BC 10.1, hemoglobin 13.8, platelet 346 without left shift, BMP with carbon dioxide 34, glucose 107, troponin less than 0.015, EKG with no acute evidence of ischemia, chest x-ray with chronic COPD changes. Will admit to [facility], maintain on oxygen with wean as tolerated to room air, continue ATC duonebs, PRN albuterol, IV methylprednisolone-->de-escalate 5/22/19 to prednisone therapy, HOB, IS parameters, defer abx given afebrile, no marked WBC elevation or L shift, requested sputum cultures. Dr. Castellon consulted, recommendation to continue current inpatient regimen as well as check a respiratory viral panel, obtain oxygenation ambulatory walking prior to discharge, follow-up in pulmonary office within 1 to 2 weeks, continue Symbicort but also add Spiriva Respimat to his inhaler regimen upon discharge. (2) Chest Pain, suspected atypical, musculoskeletal secondary to coughing with acute #1 presentation: EKG repeats with no acute evidence of ischemia, telemetry without market event, CXR w/ no acute cardiopulmonary findings aside from chronic COPD changes, cardiac enzymes serial trending normal. ASA, NG, morphine. (3) Tobacco Abuse: Encouraged cessation, inpatient consultation per RT, NR if desired. (4) Severe Protein Calorie Malnutrition: Evidenced per BMI, habitus, muscle and fat loss, nutrition consulted. (5) DVT Prophylaxis: SCDs, lovenox. Code Visit Inpatient E&M: 50070 Subs Hosp L3
--- NOTE | 2019-03-27 12:55 | CASEMGMT ---
RN [facility] CM to room to meet with patient for initial transition planning/care coordination assessment. BIMAL VOSS introduced self and role at [facility]. Pt voices understanding and consents to assessment at this time. Pt resting in bed in no distress at this time. Pt is A/O at this time and answers all questions appropriately. Care providers, pharmacy, and demographics verified/updated at this time. PCP: Jodi Moreno Specialists: none Preferred Pharmacy: [facility] [place] Insurance: [employer] Prescription Benefit: Yes Living Will/HPOA: Pt states my brother handles all of that for me. I'm sure he has done all the paperwork I need. States he is not sure who his HCPOA is, but he will check with his brother to try and find out. LNOK: Sister, Natividad. Brother. Living Arrangements: Lives with a roommate in 2-story home. Denies difficulty with stairs. Independent. Transportation: Pt states he walks to everything. States he will try and find someone to take him home @ discharge. Pt instructed to inform staff if he is unable to find transportation. Pt made aware [facility] Van transport may be available or a taxi voucher can be provided to him. Pt voices understanding. DME: [facility] has a nebulizer but does not currently have a prescription for medication for it. Does not have home O2 and states does not have preference of DME company if he qualifies for home O2. Pt states no need for further DME at this time. HHC/SNF: No history of either and no needs identified. Pt wishes to return home and states has no concerns with going home at time of discharge. CM to follow for home oxygen needs and any further discharge planning/needs. Pt voices no further concerns/needs at this time. Advised pt to ask for CM if any further questions/concerns/needs arise. Voices understanding. PLAN: Home. CM to follow for any Home O2 needs. Catherine BENNETT RN, CM
[2019-03-27] MEDS: 0.9% NaCl Peripheral Flush Adult/Peds IV (13:10)
--- NOTE | 2019-03-27 22:20 | NURSING ---
Heart rate up 140's checked pt he had a coughing spell, feels SOB. Called RT to get breathing Tx. Heart rate down 116. Pt is in bed with 02 on.
[2019-03-27] MEDS: MELATONIN 3 MG TABLET PO (23:06)
[2019-03-28] VITALS (8 sets, daily range): BP systolic 106–121; BP diastolic 81–86; PULSE 75–99; RESP 16–18; TEMP 36.5–36.6; O2SAT 86–99
[2019-03-28 06:31] LABS: Absolute Lymphocyte Count 2.11 X10^3/ul (0.83-4.51); Basophil# 0.01 X10^3/uL; Basophil% 0.1 % (0-1); Differential Indicated SCAN CRITERIA MET; Eosinophil# 0.01 X10^3/uL; Eosinophils% 0.1 % (0-5); Hemoglobin 13.5 g/dl (13.0-16.5); Lymphocyte # 2.11 X10^3/ul (4.0); Lymphocyte % 11.1 % (19-41); Mean Corp Hgb Conc 32.1 g/gl (32-36); Mean Corpuscular Hgb 30.8 pg (27.0-32.0); Mean Corpuscular Volume 95.7 fL (80-94); Monocyte% 9.5 % (0-10); Neutrophil # 14.97 X10^3/uL (2.7-7.7); Neutrophil % 78.8 % (47-70); POSITIVE COUNT NO; POSITIVE DIFFERENTIAL YES; POSITIVE MORPHOLOGY NO; Platelet Count 398 K/mm3 (150-450); RBC Distribution Width CV 13.5 % (11.6-14.6); RBC Distribution Width SD 46.2 fl (35.1-43.9); Red Blood Count 4.39 M/mm3 (4.6-6.2)
[2019-03-28 06:34] LABS: Anion Gap 5 (5-15); BUN 22 mg/dL (7-18); BUN/Creat Ratio 47.8 RATIO (10-20); Calcium,Total 9.1 mg/dL (8.5-10.1); Chloride 102 mmol/L (98-107); Creatinine, Serum 0.46 mg/dL (0.70-1.30); EST Glomerular Filtration Rate 202 mL/min (>60); Est Glom Filt Rate - Afr Amer 245 mL/min (>60); Estimated Creatinine Clearance 126.73 ml/min; Glucose 105 mg/dL (74-106); Potassium 4.3 mmol/L (3.5-5.1); Sodium Level 139 mmol/L (136-145)
--- NOTE | 2019-03-28 06:39 | PCM.DC ---
- Discharge Diagnoses Current Active Problems: Current Active and Chronic Problems (1) Acute on chronic COPD exacerbation w/ Hypoxia (2) Chest Pain, atypical, musculoskeletal secondary to coughing with acute #1 presentation (3) Tobacco Abuse (4) Severe Protein Calorie Malnutrition You will use the following diet at home:: Regular Your food should be the consistency of: Regular Your liquids should be the consistency of: Regular/Thin Discharge Activity: - - Avoid above moderate activity until re-evaluation per Pulmonary. Weight Bearing Status: Weight bearing as tolerated Call your doctor if you observe: Fever of 101 or Higher, Inability to urinate, Inability to have a bowel movement, Shortness of breath, Dizziness, Fainting spells, Chest pain, Uncontrolled pain Instructions: ED COPD Flare, What is COPD?, Chronic Lung Disease: Preventing Lung Infections, What Is Emphysema?, Resources for Chronic Lung Disease, Using Oxygen Safely, Traveling with Oxygen, Why Do You Smoke?, Planning to Quit Smoking, Getting Support for Quitting Smoking, Coping with Smoking Withdrawal Allergies/Adverse Reactions: Allergies No Known Allergies Allergy (Verified 03/26/19 05:37) Medications to take at Discharge Albuterol Inhaler [Ventolin Hfa] 1 - 2 puff INHALATION Q4H PRN PRN #1 inhaler 10/16/17 Budesonide/Formoterol 160/4.5 [Symbicort 160/4.5 Mcg Inhaler (SP)] 2 puff INHALATION BID 03/26/19 Albuterol Aerosols [Ventolin Aerosols] 2.5 mg INHALATION Q2H PRN PRN #1 box 03/28/19 Aspirin [Aspirin, Baby] 81 mg PO DAILY@0800 #30 tab.chew 03/28/19 Guaifenesin [Mucinex] 1,200 mg PO BID #20 tablet 03/28/19 Nebulizer [Lc Star] 1 each UD #1 each 03/28/19 Nicotine [Nicoderm Cq] 21 mg TRANSDERM. DAILY #14 patch 03/28/19 Prednisone 10 mg PO UD #30 tablet 03/28/19 Tiotropium [place] [Spiriva Respimat] 4 gm IH DAILY #1 inhaler 03/28/19 The following prescriptions were given: Albuterol Aerosols [Ventolin Aerosols] 2.5 mg INHALATION Q2H PRN PRN #1 box PRN Reason: dyspnea, wheezing Aspirin [Aspirin, Baby] 81 mg PO DAILY@0800 #30 tab.chew Nebulizer [Lc Star] 1 each MC UD #1 each Nicotine [Nicoderm Cq] 21 mg TRANSDERM. DAILY #14 patch Prednisone 10 mg PO UD #30 tablet Tiotropium [place] [Spiriva Respimat] 4 gm IH DAILY #1 inhaler Guaifenesin [Mucinex] 1,200 mg PO BID #20 tablet Primary Care Physician: Jodi Diaz [Primary Care Provider] - Please follow up with your Primary Care Physician in: Follow-up within 3-5 days to review admission. Test Results: Test results from this visit will be discussed in further detail at your follow-up appointment, if applicable. Please Follow Up With: Kade Castellon DO When: Follow-up with pulmonary, may see W[employer] TRAFFIC SUPERVISOR in 1-2 week. Proposed Discharge Date: 03/28/19
--- NOTE | 2019-03-28 06:41 | PCM.DC.SUM ---
Discharge Date and Diagnosis - Problem List Patient Problems: Active and Suspected Problems COPD exacerbation (Acute) Date of Admission: 03/26/19 Date of Discharge: 03/28/19 - Primary Discharge Diagnosis Active and Suspected Problems (1) Acute on chronic COPD exacerbation w/ Hypoxia (2) Chest Pain, atypical, musculoskeletal secondary to coughing with acute #1 presentation (3) Tobacco Abuse (4) Severe Protein Calorie Malnutrition - Secondary Discharge Diagnosis Chronic Problems Tobacco abuse (Chronic) Severe malnutrition (Chronic) Hospital Course and Treatment Dr. Castellon Pulmonary Operations: None Procedures: EKG Summary of Care Provided: The patient is a 53 y/o M w/ PMHx: Tobacco use, Chronic COPD who presented to the [facility] ED on 03/26/19 with history of progressively worsening dyspnea, wheezing, cough with increased sputum without fever or chills w/ associated pleuritic chest discomfort primarily with coughing x 2 days. Work-up in the ED included T 97.5, heart rate 76, BP 125/88, respiratory rate 20, 92% on room air however with exertion became hypoxic and 88%, improved to 99% on 2 L nasal cannula, CBC with W BC 10.1, hemoglobin 13.8, platelet 346 without left shift, BMP with carbon dioxide 34, glucose 107, troponin less than 0.015, EKG with no acute evidence of ischemia, chest x-ray with chronic COPD changes. Admitted to [place], maintained on oxygen with wean as tolerated to room air attempted w/ oxygenation assessment prior to discharge, continued ATC duonebs, PRN albuterol, IV methylprednisolone-->de-escalated 03/27/19 to prednisone therapy with taper upon discharge, HOB, IS parameters, deferred abx given afebrile, no marked WBC elevation or L shift, requested sputum cultures but unable to give. Dr. Castellon consulted, recommended to continue current inpatient regimen as well as check a respiratory viral panel which was unremarkable, obtain oxygenation ambulatory walking prior to discharge, follow-up in pulmonary office within 1 to 2 weeks, continue Symbicort but also add Spiriva Respimat to his inhaler regimen upon discharge which was arranged. Encouraged strongly tobacco cessation, inpatient consultation per RT, NR rx given. Patient discharged to home in improved condition with follow-up with PCP and Pulmonary. DAY OF DISCHARGE PROGRESS NOTE: Subjective: Patient without acute event overnight per self and nursing report. He walked this AM w/ noted oxygenation testing w/ 95% resting on room air, 86% ambulatory on room air with improvement to 93% ambulating on 2 L nasal cannula with oxygenation being set up for case management prior to discharge. Patient notes feeling improved since initial presentation, less dyspnea. Patient denies fever, chills, nausea, emesis, abdominal pain, chest pain. Patient agreeable to discharge to home on supplemental oxygenation. Patient will be discharged with follow-up with primary care physician within 3-5 days in addition to follow-up with pulmonary within 1 to 2 weeks. Objective: T 97.8, heart rate 99, BP 121/86, respiratory rate 16, 93% on 2 L. Physical Examination: General: awake, alert, oriented x 3 and cooperative, seated upright at the bedside, improved appearance, no acute distress. Skin: normal color, turgor, no icterus, cyanosis. HEENT: AT/NC, EOMI, PERRLA, improved MMM. Lungs: Diminished breath sounds, improved however from prior, improved effort, > diminished bases, improved effort, no wheezing. Heart: Regular rate and rhythm; no gallop, rub audible. Abdomen: soft, thin cachectic habitus, NTTP, ND, normal BS. Extremities: no cyanosis, clubbing, or edema. Neurological: patient awake, alert, oriented x 3; cognitive function intact; pupils equally reactive to light and accomodation; cranial nerves II-XII grossly normal, moving all 4 extremities, no focal deficits, strength improved, moderately global decrease secondary to acute presentation. Psychiatric: affect appears improved, normal, no acute evidence of depressive or anxiety feelings. Assessment and Plan: Please see hospital summary above. Patient Problems: Active and Suspected Problems COPD exacerbation (Acute) - Physical Exam Vital Signs Temp Pulse Resp BP Pulse Ox 97.8 F 99 16 121/86 H 93 03/28/19 02:37 03/28/19 02:37 03/28/19 02:40 03/28/19 02:37 03/28/19 02:40 Oxygen Flow Rate (L/min) 2 Oxygen Delivery Method Nasal Cannula Weight: 107 lb 9.616 oz Body Mass Index (BMI) 14.1 Intake and Output for Last 24 Hours 03/26/19 03/27/19 03/28/19 23:59 23:59 23:59 Intake Total 2198 / 2198 2300 / 2300 790 / 790 Output Total 900 / 900 425 / 425 Balance 1298 / 1298 1875 / 1875 790 / 790 Microbiology Past 72 Hours 03/27/19 11:12 Respiratory Panel (PCR) - Final Mucosa - Nasopharyngeal 03/27/19 08:20 Gram Stain - Final Sputum, Expectorated/Coughed Laboratory Tests Past 24 Hrs 03/27/19 03/27/19 03/28/19 06:28 06:28 05:46 WBC 17.8 H 19.0 H RBC 4.25 L 4.39 L Hgb 13.6 13.5 Hct 40.6 42.0 MCV 95.5 H 95.7 H MCH 32.0 30.8 MCHC 33.5 32.1 RDW 13.3 13.5 RDW Differential 46.3 H 46.2 H Plt Count 378 398 MPV 9.1 9.0 Immature Gran % (Auto) 0.300 0.400 Neut % (Auto) 85.3 H 78.8 H Lymph % (Auto) 7.7 L 11.1 L Thomas % (Auto) 6.6 9.5 Eos % (Auto) 0.0 0.1 Baso % (Auto) 0.1 0.1 Absolute Neuts (auto) 15.2 H 15.0 H Absolute Lymphs (auto) 1.37 2.11 Total Counted Not Reportable Pending Sodium 137 Potassium 4.5 Chloride 102 Carbon Dioxide 30.0 Anion Gap 5 BUN 16 Creatinine 0.45 L Estim Creat Clear Calc 129.55 Est GFR (MDRD) Af Amer 251 Est GFR (MDRD) Non-Af 208 BUN/Creatinine Ratio 35.6 H Glucose 140 H Calcium 9.0 03/28/19 05:46 WBC RBC Hgb Hct MCV MCH MCHC RDW RDW Differential Plt Count MPV Immature Gran % (Auto) Neut % (Auto) Lymph % (Auto) Thomas % (Auto) Eos % (Auto) Baso % (Auto) Absolute Neuts (auto) Absolute Lymphs (auto) Total Counted Sodium 139 Potassium 4.3 Chloride 102 Carbon Dioxide 32.0 Anion Gap 5 BUN 22 H Creatinine 0.46 L Estim Creat Clear Calc 126.73 Est GFR (MDRD) Af Amer 245 Est GFR (MDRD) Non-Af 202 BUN/Creatinine Ratio 47.8 H Glucose 105 Calcium 9.1 Discharge Activity: - - Avoid above moderate activity until re-evaluation per Pulmonary. Weight Bearing Status: Weight bearing as tolerated Call your doctor if you observe: Fever of 101 or Higher, Inability to urinate, Inability to have a bowel movement, Shortness of breath, Dizziness, Fainting spells, Chest pain, Uncontrolled pain Home Medications: Medications to take at Discharge Albuterol Inhaler [Ventolin Hfa] 1 - 2 puff INHALATION Q4H PRN PRN #1 inhaler 10/16/17 Budesonide/Formoterol 160/4.5 [Symbicort 160/4.5 Mcg Inhaler (SP)] 2 puff INHALATION BID 03/26/19 Albuterol Aerosols [Ventolin Aerosols] 2.5 mg INHALATION Q2H PRN PRN #1 box 03/28/19 Aspirin [Aspirin, Baby] 81 mg PO DAILY@0800 #30 tab.chew 03/28/19 Guaifenesin [Mucinex] 1,200 mg PO BID #20 tablet 03/28/19 Nebulizer [Lc Star] 1 each MC UD #1 each 03/28/19 Nicotine [Nicoderm Cq] 21 mg TRANSDERM. DAILY #14 patch 03/28/19 Prednisone 10 mg PO UD #30 tablet 03/28/19 Tiotropium [place] [Spiriva Respimat] 4 gm IH DAILY #1 inhaler 03/28/19 Following Prescrptions Were Given to Patient: Albuterol Aerosols [Ventolin Aerosols] 2.5 mg INHALATION Q2H PRN PRN #1 box PRN Reason: dyspnea, wheezing Aspirin [Aspirin, Baby] 81 mg PO DAILY@0800 #30 tab.chew Nebulizer [Lc Star] 1 each MC UD #1 each Nicotine [Nicoderm Cq] 21 mg TRANSDERM. DAILY #14 patch Prednisone 10 mg PO UD #30 tablet Tiotropium [place] [Spiriva Respimat] 4 gm IH DAILY #1 inhaler Guaifenesin [Mucinex] 1,200 mg PO BID #20 tablet Primary Care Physician: Jodi Diaz [Primary Care Provider] - Please follow up with your Primary Care Physician in: Follow-up within 3-5 days to review admission. Please Follow Up With: Kade Castellon, DO When: Follow-up with pulmonary, may see MIXING MACHINE TENDER in 1-2 week. Patient Instructions: What is COPD?, Chronic Lung Disease: Preventing Lung Infections, What Is Emphysema?, Resources for Chronic Lung Disease, Traveling with Oxygen, Using Oxygen Safely, Why Do You Smoke?, Planning to Quit Smoking, Getting Support for Quitting Smoking, Coping with Smoking Withdrawal, ED COPD Flare Disposition: Home Minutes spent on discharge:: 35 Patient Condition:: Fair Medical Necessity - Tobacco Use Smoking Status: Current every day smoker Tobacco Use: Cigarettes Meaningful Use Info Meaningful Use Diagnoses (Choose all that apply): None applicable Code Visit Inpatient E&M: 70148 Disch Hosp
[2019-03-28] MEDS: Ipratropium/Albuterol Sulfate 3 ML AMPUL.NEB INHALATION (06:57)
--- NOTE | 2019-03-28 07:34 | PN_ITS ---
Patient Problems: Active and Suspected Problems COPD exacerbation (Acute) Subjective: The patient was seen and examined at the bedside this morning. Events from the last 24 hours have been reviewed. The patient is currently afebrile, hemodynamically stable and maintaining appropriate oxygen saturations on room air at rest. However, the patient will require 2 L/min of supplemental oxygen with exertion, based upon his walking oximetry completed by the nursing staff. The patient's breathing quality remains stable. He is insistent that he is going to quit smoking. Objective: The patient's most recent lab work, culture data and imaging studies have all been personally reviewed. Respiratory viral panel was negative. Sputum culture is pending. - Physical Exam General: Alert, Cooperative, No apparent distress HEENT: Atraumatic, PERRLA, Normocephalic Oral: No Gingival or Mucosal Lesions/ Ulcerations Neck: Supple, No Nodes, Trachea Midline Lungs: No rhonchi, No wheeze, No rales, Diminished Cardiovascular: Regular rate, Regular Rhythm, Normal S1, Normal S2, No murmurs Abdomen: Bowel Sounds Present, Soft, Non Tender Extremities: No clubbing, No cyanosis, No edema Skin: No breakdown Musculoskeletal: Cachexia Lymphatic: No Cervical, Supraclavicular, or Inguinal Adenopathy Neurological: Cranial nerves II-XII grossly intact, Neuro grossly intact Psych/Mental Status: Alert and oriented to time, place, person, mood and affect Vital Signs Temp Pulse Resp BP Pulse Ox 97.7 F L 75 18 121/82 H 93 03/28/19 07:29 03/28/19 07:29 03/28/19 07:29 03/28/19 07:29 03/28/19 07:29 Oxygen Flow Rate (L/min) 2 Oxygen Delivery Method Room Air Weight: 107 lb 9.616 oz Body Mass Index (BMI) 14.1 Intake and Output for Last 24 Hours 03/26/19 03/27/19 03/28/19 23:59 23:59 23:59 Intake Total 2198 / 2198 2300 / 2300 790 / 790 Output Total 900 / 900 425 / 425 Balance 1298 / 1298 1875 / 1875 790 / 790 Microbiology Past 72 Hours 03/27/19 11:12 Respiratory Panel (PCR) - Final Mucosa - Nasopharyngeal 03/27/19 08:20 Gram Stain - Final Sputum, Expectorated/Coughed Laboratory Tests Past 24 Hrs 03/28/19 03/28/19 05:46 05:46 WBC 19.0 H RBC 4.39 L Hgb 13.5 Hct 42.0 MCV 95.7 H MCH 30.8 MCHC 32.1 RDW 13.5 RDW Differential 46.2 H Plt Count 398 MPV 9.0 Immature Gran % (Auto) 0.400 Neut % (Auto) 78.8 H Lymph % (Auto) 11.1 L Knott % (Auto) 9.5 Eos % (Auto) 0.1 Baso % (Auto) 0.1 Absolute Neuts (auto) 15.0 H Absolute Lymphs (auto) 2.11 Total Counted Not Reportable Diff Path Review March Sodium 139 Potassium 4.3 Chloride 102 Carbon Dioxide 32.0 Anion Gap 5 BUN 22 H Creatinine 0.46 L Estim Creat Clear Calc 126.73 Est GFR (MDRD) Af Amer 245 Est GFR (MDRD) Non-Af 202 BUN/Creatinine Ratio 47.8 H Glucose 105 Calcium 9.1 Clinical Impression(s) from Imaging Studies Chest X-Ray 03/26/19 05:41 IMPRESSION: COPD unchanged. Electronically Signed: Bull Enriquez MD at 6:22 EDT , Service support , Medical Necessity - Tobacco Use Smoking Status: Current every day smoker Tobacco Use: Cigarettes Assessment/Plan All Active Problems COPD exacerbation (Acute) RECOMMENDATIONS: 1. Continue scheduled and as needed bronchodilators. 2. Continue prednisone 40 mg daily by mouth. Plan for taper at discharge. 3. Perform ambulatory walking oximetry prior to discharge. 4. Wean supplemental oxygen as tolerated. Encourage incentive spirometer use. 5. The patient will need to be seen in the pulmonary medicine clinic within 2 weeks of discharge. 6. At the time of his discharge, would recommend that he be continued on Symbicort. However, I would also plan to add Spiriva Respimat to his inhaler regimen. 7. As of next month, the patient will be a candidate for yearly low-dose CT scanning of his chest. This can be ordered as an outpatient as well. IMPRESSIONS: 1. Baseline severe COPD with exacerbation/acute hypoxemic respiratory insufficiency The patient did have pulmonary function studies completed in 2014, which at that time, did demonstrate evidence of severe COPD. The patient has continued to smoke extensively since that time. It is highly likely that his current exacerbation was precipitated by his continuous tobacco dependency along with suboptimal treatment of his baseline COPD. Based upon the patient's symptoms and frequency of rescue inhaler use, he should be on a triple therapy inhaler regimen. While there was no evidence of pneumonia on plain film chest imaging, the patient does have a productive cough, which could raise the possibility for tracheobronchitis. Respiratory viral panel was negative. Sputum culture is pending. The patient can be continued on bronchodilators and prednisone as ordered. The patient undoubtedly needs to follow-up closely in the pulmonary medicine clinic so that repeat PFTs can be obtained and his baseline inhaler regimen optimized. Smoking cessation is strongly advisable. In addition, given that the patient will soon be 54 years old next month, he would be a candidate for yearly low-dose CT scanning of the chest. This can be accomplished on an outpatient basis as well. It is very possible that the patient may have had an exertional oxygen requirement even prior to his hospitalization. 2. Continuous tobacco dependency The patient was counseled extensively regarding the deleterious effects of ongoing tobacco use, including modalities which could be utilized to achieve a smoke-free lifestyle. Continue nicotine replacement therapy. This note was generated with Flash Valetation software. It may contain incorrect words, spelling, and punctuation that were not noted in checking the note before signing. Code Visit Inpatient E&M: 06527 Subs Hosp L2
[2019-03-28] MEDS: Aspirin 81 MG TAB.CHEW PO (07:38)
[2019-03-28] MEDS: predniSONE 20 MG Tablet 40 MG PO (07:38)
[2019-03-28] MEDS: guaiFENesin 1,200 MG Tablet 1200 MG PO (07:38)
--- NOTE | 2019-03-28 09:30 | CASEMGMT ---
BIMAL VOSS received update that patient will require home oxygen at discharge. Per CM assessment patient has not preference for DME. Referral sent to [facility] [place], which is in-network with his insurance. BIMAL VOSS called [facility] [place] and arranged for portable oxygen to be delivered to hospital prior to discharge.
[2019-03-28] MEDS: Enoxaparin 40 MG/0.4 ML Syringe SC (10:05)
[2019-03-28 14:36] LABS: Pathologist Review Reviewed
--- NOTE | 2019-03-29 15:01 | CASEMGMT ---
BIMAL VOSS Discharge Follow-Up Phone Call. Lace: 11 Strata: 3 Discharge Date: 03/28/19 Adm Dx: COPD Exac Attempted discharge follow-up phone call. No answer. Message left for pt to return call to CM if he has any questions re: discharge instructions, medications, or appts. Phone number provided. Also left message advising for pt to contact his PCP if he has questions and unable to reach CM. Catherine BENNETT RN CM
== END 2019-03-28 12:29 | disposition home or self-care (01) | DRG 190 ==
LOC: ED 05:46 → MS3 07:33
PROVIDERS: Admitting Provider Family Medicine; Emergency Provider Emergency Medicine; Referring Provider Nurse Practitioner Family; Visit Provider Family Medicine
DX: J44.1 Chronic obstructive pulmonary disease with (acute) exacerbation (principal); E43 Unspecified severe protein-calorie malnutrition; Z68.1 Body mass index [BMI] 19.9 or less, adult; R09.02 Hypoxemia; R07.89 Other chest pain; Z79.51 Long term (current) use of inhaled steroids; Z79.52 Long term (current) use of systemic steroids; F17.210 Nicotine dependence, cigarettes, uncomplicated; R06.89 Other abnormalities of breathing
CPT/HCPCS: 36415; 71045; 80048; 83735; 84484; 85025; 87070; 87077; 87205; 87633; 93005; 94640; 97802; 99285; J7030; J7040; A4216

== ENCOUNTER 2019-04-18 09:52 | Emergency (ER) | payer OTHER, SELFPAY ==
[2019-04-16 09:33] VITALS: BMI 14.1
[2019-04-18 09:53] VITALS: BP 114/75; PULSE 72; RESP 17; TEMP 36.4; O2SAT 98; BMI 15.8
--- NOTE | 2019-04-18 10:20 | CT_ITS ---
STUDY: CT BRAIN WITHOUT CONTRAST REASON FOR EXAM: Male, 54 years old. SYNCOPE, LIGHTHEADED, DISCOMFORT WHILE HAVING BREATHING TEST DONE HERE AT HOSPITAL, SMOKER, COPD, ASTHMA, EMPHYSEMA. RADIATION DOSAGE (If Supplied By Facility): CTDIvol = ( 44.99 ) mGy, DLP = ( 846.73 ) mGycm TECHNIQUE: Transaxial CT imaging of the brain was performed without administration of intravenous contrast material. Individualized dose optimization techniques were used for this CT. COMPARISON: September 06, 2018 FINDINGS: Normal soft tissue structures. Normal calvarium. Normal size ventricles and extra-axial spaces for the patient's age. Normal white matter tracts of the cerebral hemispheres. Normal basal ganglia and thalami. Normal brainstem. Retrocerebellar likely arachnoid cyst is again noted. There is no intracranial hemorrhage. There are no findings of an acute ischemic infarction. Normal visualized paranasal sinuses. CT/Brain/Head without Contrast IMPRESSION: No acute intracranial abnormality Electronically Signed: Beata Minor MD at 12:07 EDT Tel , Service support ,
--- NOTE | 2019-04-18 10:21 | EKG12_ITS ---
Test Reason : SOB Blood Pressure : / mmHG Vent. Rate : 063 BPM Atrial Rate : 063 BPM P-R Int : 128 ms QRS Dur : 082 ms QT Int : 378 ms P-R-T Axes : 084 079 081 degrees QTc Int : 386 ms Normal sinus rhythm Right atrial enlargement Borderline ECG Confirmed by NIKUNJ JOHNSON ([id number]), editor magazine HAKEEM MORRISON ([id number]) on 04/22/2019 1:21:02 PM Referred By: Fanny Whitfield Confirmed By:HASEEB JOHNSON
[2019-04-18] MEDS: Ipratropium/Albuterol Sulfate 3 ML AMPUL.NEB INHALATION (10:28)
[2019-04-18 10:31] VITALS: PULSE 61; RESP 17; O2SAT 100
[2019-04-18 11:05] LABS: Absolute Lymphocyte Count 1.59 X10^3/ul (0.83-4.51); Absolute Neutrophil Count 6.1 X10^3/uL (2.0-7.7); Basophil# 0.02 X10^3/uL; Basophil% 0.2 % (0-1); Eosinophils% 1.2 % (0-5); Hematocrit 46.7 % (40-54); Hemoglobin 15.3 g/dl (13.0-16.5); Lymphocyte # 1.59 X10^3/ul (4.0); Lymphocyte % 18.6 % (19-41); Mean Corp Hgb Conc 32.8 g/gl (32-36); Mean Corpuscular Hgb 30.9 pg (27.0-32.0); Mean Corpuscular Volume 94.3 fL (80-94); Mean Platelet Vol. 9.2 fl (6.2-12.0); Monocyte# 0.73 X10^3/uL; Monocyte% 8.5 % (0-10); Neutrophil # 6.08 X10^3/uL (2.7-7.7); Neutrophil % 71.1 % (47-70); Platelet Count 305 K/mm3 (150-450); RBC Distribution Width CV 13.7 % (11.6-14.6); RBC Distribution Width SD 45.9 fl (35.1-43.9); Red Blood Count 4.95 M/mm3 (4.6-6.2); White Blood Count 8.6 K/mm3 (4.4-11.0)
[2019-04-18 11:06] LABS: POSITIVE COUNT NO; POSITIVE DIFFERENTIAL NO; POSITIVE MORPHOLOGY NO
[2019-04-18 11:17] LABS: Anion Gap 0 (5-15); BUN 15 mg/dL (7-18); BUN/Creat Ratio 19.8 RATIO (10-20); Calcium,Total 9.5 mg/dL (8.5-10.1); Chloride 102 mmol/L (98-107); Creatinine, Serum 0.76 mg/dL (0.70-1.30); EST Glomerular Filtration Rate 114 mL/min (>60); Est Glom Filt Rate - Afr Amer 138 mL/min (>60); Estimated Creatinine Clearance 84.55 ml/min; Glucose 105 mg/dL (74-106); Potassium 4.6 mmol/L (3.5-5.1); Sodium Level 134 mmol/L (136-145)
--- NOTE | 2019-04-18 11:25 | RAD_ITS ---
STUDY: X-RAY CHEST REASON FOR EXAM: Male, 54 years old. Cough. TECHNIQUE: Frontal and lateral views of the chest. COMPARISON: March 26, 2019 FINDINGS: The lungs are hyperexpanded and unchanged. Findings are compatible with moderate to severe COPD. There is no demonstrated pleural abnormality. Normal size heart. Normal mediastinum and akash. Normal visualized pulmonary arteries. Normal visualized aortic arch and descending thoracic aorta. Normal visualized thoracic spine. Normal visualized ribs, clavicles, and shoulders. There is no demonstrated abnormality of the visualized soft tissue structures of the upper abdomen. RAD/Chest PA and Lateral IMPRESSION: Stable findings compatible with moderate to severe COPD. No acute finding. Electronically Signed: Dany Franco MD at 11:39 EDT , Service support ,
[2019-04-18 11:29] VITALS: BP 121/81; PULSE 97; RESP 24; O2SAT 98
[2019-04-18 11:42] VITALS: BP 119/89; BP 129/88; BP 87/75; PULSE 105; PULSE 81; PULSE 87
[2019-04-18] MEDS: 0.9% Normal Saline 1,000 ML 999 ML IV (11:46)
[2019-04-18 12:04] VITALS: BP 119/78; PULSE 87; RESP 19; O2SAT 100
--- NOTE | 2019-04-18 12:55 | ED.VISSUMM ---
- ER Visit Summary Date of Service: 04/18/19 Chief Complaint: Near syncope History of Present Illness: The patient is a 54 M who presents with a near syncopal episode that occurred today. Patient was having a pulmonary stress test today and had a near syncopal episode. Patient states that they tried 2 times in his right brachial artery for an arterial blood gas and were unsuccessful. Patient states that another person obtain the arterial blood gas out of the right radial artery and when the tech pulled out the needle from the blood gas he felt lightheaded and felt like he was going to pass out. Patient does not think he completely lost consciousness but is not sure. Patient states he remembers being put in a wheelchair and brought to the emergency department. Patient denies any chest pain with this. Patient admits to a recent cough. Patient denies any nausea or vomiting. Patient denies any diaphoresis. Physical Examination: Vital signs are stable. Patient is afebrile. Patient is in no acute distress. Oral mucosa is pink and moist. Neck is supple. Trachea is midline. There is no JVD noted. Heart was regular rate and rhythm. Lungs are diminished bilaterally with some mild expiratory wheezing. Abdomen is soft. Bowel sounds are normal. There is no tenderness. Cranial nerves II through XII are intact. There are no focal motor or sensory deficits noted. Test Results: EKG showed normal sinus rhythm with a rate of 63. There is right atrial enlargement. There are no acute ST or T wave changes noted. This was unchanged compared to previous EKG dated 03/26/2019. PA and lateral chest x-ray was obtained. There are changes consistent with COPD but no acute cardiopulmonary process. CT scan of the brain does not show any acute intracranial abnormality. CBC, basic metabolic profile, troponin were obtained and were normal. Emergency Department Course and Treatment: Patient was given a DuoNeb aerosol here in the emergency department. Patient felt better on reevaluation. Patient wants to go home. Patient was instructed to follow-up with his primary care physician today as scheduled. Patient understood and was agreeable with the plan. All questions were answered. Disposition: Discharge home Impression: Near syncope This note was generated with Photo Rankr dictation software. It may contain incorrect words, spelling, and punctuation that were not noted in review of the chart prior to signing ED Disposition - Plan for ED Patient: Disposition: Home or Assisted Living Diagnosis: Near syncope Instructions: ED Near Syncope Unkn Referrals: Antonette Jeffrey, SINGLE STROKE PREFORMER-C [Primary Care Provider] - As Needed
[2019-04-18 13:11] VITALS: BP 138/78; PULSE 79; RESP 19; O2SAT 99
== END 2019-04-18 13:13 | disposition home or self-care (01) ==
PROVIDERS: Emergency Provider Emergency Medicine; Family Provider Nurse Practitioner Family; PCP Nurse Practitioner Family
DX: R55 Syncope and collapse (principal); J44.9 Chronic obstructive pulmonary disease, unspecified; Z72.0 Tobacco use; Z79.51 Long term (current) use of inhaled steroids
CPT/HCPCS: 70450; 71046; 80048; 84484; 85025; 93005; 94640; 96360; 99284; J7030; A4216

== ENCOUNTER → 2019-04-18 | Outpatient (CLI) | payer OTHER, SELFPAY ==
[2019-04-16 09:33] VITALS: BMI 14.1
== END | disposition home or self-care (01) ==
LOC: PSN 08:08
PROVIDERS: Referring Provider Nurse Practitioner Acute Care; Visit Provider Nurse Practitioner Acute Care
DX: J44.1 Chronic obstructive pulmonary disease with (acute) exacerbation (principal)

== ENCOUNTER → 2019-04-23 | Outpatient (CLI) | payer OTHER, SELFPAY ==
[2019-01-30 16:51] VITALS: BMI 15.5
[2019-04-18 09:53] VITALS: BMI 15.8
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
== END | disposition home or self-care (01) ==
DX: J44.9 Chronic obstructive pulmonary disease, unspecified (principal)
CPT/HCPCS: 71260; Q9967

== ENCOUNTER → 2019-04-24 | Outpatient (CLI) | payer OTHER, SELFPAY ==
[2019-04-18 09:53] VITALS: BMI 15.8
[2019-04-24 08:00] VITALS: PULSE 108; PULSE 109; PULSE 115; PULSE 120; PULSE 121; PULSE 125; O2SAT 91; O2SAT 92; O2SAT 93; O2SAT 95; O2SAT 96; O2SAT 97
--- NOTE | 2019-04-24 08:52 | CPS ---
Did testing with TCO2 Monitoring
--- NOTE | 2019-04-25 08:38 | PCM.PSN.6M ---
PSN 6 Minute Walk Test - 6 Minute Walk Test 6 Minute Walk Test: 6 Minute Walk Test PSN:6-Minute Walk Test Start: 04/24/19 08:48 Freq: Status: Active Protocol: [id number].6MINW Document 04/24/19 08:00 YUE (Rec: 04/24/19 08:51 JLA [id number]) 6 Minute Walk Test Date Performed 04/24/19 Time Performed 08:00 Height 6 ft 1 in Weight: 122 lb Weight in Pounds 122.[address]: Fanny Whitfield Assistive device used: None Pre-test Oxygen Delivery Method Room Air Pulse Ox (%) 95 Pulse Rate (60-100 beats/min) 108 H Dyspnea Alka Scale (0-10) 0 Exertion Alka Scale (6-20) 6 1st minute Oxygen Delivery Method Room Air Pulse Ox (%) 92 Pulse Rate (60-100 beats/min) 115 H 2nd minute Oxygen Delivery Method Room Air Pulse Ox (%) 92 Pulse Rate (60-100 beats/min) 121 H 3rd minute Oxygen Delivery Method Room Air Pulse Ox (%) 91 Pulse Rate (60-100 beats/min) 125 H 4th minute Oxygen Delivery Method Room Air Pulse Ox (%) 91 Pulse Rate (60-100 beats/min) 120 H Number of Rests Taken 1 5th minute Oxygen Delivery Method Room Air Pulse Ox (%) 93 Pulse Rate (60-100 beats/min) 121 H 6th minute Oxygen Delivery Method Room Air Pulse Ox (%) 96 Pulse Rate (60-100 beats/min) 109 H Post-test Oxygen Delivery Method Room Air Pulse Ox (%) 97 Pulse Rate (60-100 beats/min) 108 H Dyspnea Alka Scale (0-10) 3 Exertion Alka Scale (6-20) 11 Full Laps Walked 12 Partial Lap, Number of Tiles Walked 0 Total Distance Walked (ft) 708 - Interpretation Interpretation: The patient ambulated 708 feet over the course of 6 minutes beginning on room air without assistive devices. Pretesting oxygen saturation was noted to be 95% on room air. With ambulation, the angel oxygen saturation was 91%. The patient did develop significant tachycardia with exertion. This testing did indicate the presence of impaired walk distance along with significant exertional oxygen desaturation. - Recommendations Recommendations: There is no indication for the use of supplemental oxygen at this time. However, close interval follow-up is recommended, given the degree of oxygen desaturation noted during this study.
== END | disposition home or self-care (01) ==
LOC: PSN 08:14
PROVIDERS: Referring Provider Nurse Practitioner Acute Care; Visit Provider Nurse Practitioner Acute Care
DX: J44.1 Chronic obstructive pulmonary disease with (acute) exacerbation (principal)
CPT/HCPCS: 94618

== ENCOUNTER → 2019-06-05 | Outpatient (CLI) | payer OTHER, SELFPAY ==
[2019-04-16 09:33] VITALS: BMI 14.1
--- NOTE | 2019-06-05 12:41 | PFT ---
INTRODUCTION: The patient is a 54-year-old male that presents for pulmonary function studies secondary to a diagnosis of COPD. Respiratory therapy reports good patient effort. Bronchodilators were used during testing. INTERPRETATION: Forced expiration spirometry demonstrates the presence of a very severe large airways obstructive ventilatory defect. There was no significant response to aerosolized bronchodilators, based upon strict ATS criteria. Spirograms are of good quality and do not plateau indicating slow emptying of the lungs. Body plethysmography was performed and reveals an elevated TLC and RV, indicative of underlying hyperinflation and air trapping. Diffusing capacity by single breath CO is reduced at 42% of predicted. When compared to previous pulmonary function studies dated December 2014 there has been significant worsening in the patient's FEV1 and DLCO. IMPRESSION: Irreversible very severe large airways obstructive ventilatory defect with associated hyperinflation, air trapping and symmetric reduction in diffusing capacity. There has been worsening in the patient's pulmonary function studies since December 2014, as noted above.
== END | disposition home or self-care (01) ==
LOC: PSN 06:55
PROVIDERS: Referring Provider Nurse Practitioner Acute Care; Visit Provider Nurse Practitioner Acute Care
DX: J44.1 Chronic obstructive pulmonary disease with (acute) exacerbation (principal)
CPT/HCPCS: 94060; 94726; 94729

== ENCOUNTER 2019-12-25 14:03 | Inpatient (IN) | payer SELFPAY ==
[2019-11-05 11:15] VITALS: BMI 16.2
[2019-12-25] VITALS (10 sets, daily range): BP systolic 113–162; BP diastolic 72–89; PULSE 88–133; RESP 16–28; TEMP 36.6–37.7; O2SAT 87–98; BMI 17.1; BMI 14.1
--- NOTE | 2019-12-25 14:25 | EKG12_ITS ---
Test Reason : SOB Blood Pressure : / mmHG Vent. Rate : 123 BPM Atrial Rate : 123 BPM P-R Int : 116 ms QRS Dur : 070 ms QT Int : 270 ms P-R-T Axes : 084 076 074 degrees QTc Int : 386 ms Sinus tachycardia Otherwise normal ECG Confirmed by ELIZABETH MARTELL, NIKUNJ ([id number]), marketing editor FIORELLA KIM ([id number]) on 12/30/2019 2:28:25 PM Referred By: JEWELS FERNANDEZ Confirmed By:HASEEB JOHNSON MD
--- NOTE | 2019-12-25 14:25 | RAD_ITS ---
STUDY: X-RAY CHEST REASON FOR EXAM: Male, 54 years old. SOB, weak TECHNIQUE: PA and lateral views of the chest. COMPARISON: Comparison is made with prior examination dated April 18, 2019. FINDINGS: EKG electrodes are seen. There is hyperinflation of the lungs consistent with chronic obstructive lung disease (COPD). Since prior study, there has been progressive increased markings in the right perihilar and right infrahilar markings suggestive of possible superimposed infiltrate. Follow-up is recommended. There is no demonstrated pleural abnormality. Normal size heart. Normal mediastinum and akash. Normal visualized pulmonary arteries. Normal visualized aortic arch and descending thoracic aorta. Normal visualized thoracic spine. Normal visualized ribs, clavicles, and shoulders. There is no demonstrated abnormality of the visualized soft tissue structures of the upper abdomen. RAD/Chest PA and Lateral IMPRESSION: Hyperinflation. Increased markings in the right perihilar and right infrahilar region suggestive of early infiltrate. Follow-up is recommended. Electronically Signed: Bryan Dominguez, at 15:16 EST , Service support ,
[2019-12-25] MEDS: Ipratropium/Albuterol Sulfate 3 ML AMPUL.NEB INHALATION ×2 (14:34→19:22)
[2019-12-25 14:43] LABS: Absolute Lymphocyte Count 0.63 X10^3/uL (0.83-4.51); Absolute Neutrophil Count 6.2 X10^3/uL (2.0-7.7); Basophil# 0.09 X10^3/uL; Basophil% 1.2 % (0-1); Eosinophil# 0.01 X10^3/uL; Eosinophils% 0.1 % (0-5); Hematocrit 47.1 % (40-54); Hemoglobin 15.3 g/dL (13.0-16.5); Lymphocyte # 0.63 X10^3/ul (4.0); Lymphocyte % 8.1 % (19-41); Mean Corp Hgb Conc 32.5 g/dL (32-36); Mean Corpuscular Volume 95.5 fL (80-94); Mean Platelet Vol. 9.7 fl (6.2-12.0); Monocyte# 0.87 X10^3/uL; Monocyte% 11.2 % (0-10); NRBC Flagged by Analyzer 0 % (0-5); Neutrophil # 6.15 X10^3/uL (2.7-7.7); POSITIVE MORPHOLOGY YES; Platelet Count 249 K/mm3 (150-450); RBC Distribution Width CV 13.2 % (11.6-14.6); RBC Distribution Width SD 47.5 fl (35.1-43.9); Red Blood Count 4.93 M/mm3 (4.6-6.2); White Blood Count 7.8 K/mm3 (4.4-11.0)
[2019-12-25] MEDS: MethylPREDNISolone 125 MG/2 ML Vial IV (14:44)
[2019-12-25 15:00] LABS: Anion Gap 2 (5-15); BUN 11 mg/dL (7-18); BUN/Creat Ratio 16.1 RATIO (10-20); Calcium,Total 9.1 mg/dL (8.5-10.1); Chloride 100 mmol/L (98-107); Creatinine, Serum 0.68 mg/dL (0.70-1.30); EST Glomerular Filtration Rate 128 mL/min (>60); Est Glom Filt Rate - Afr Amer 154 mL/min (>60); Estimated Creatinine Clearance 102.37 ml/min; Glucose 144 mg/dL (74-106); Potassium 4.1 mmol/L (3.5-5.1); Sodium Level 136 mmol/L (136-145)
[2019-12-25 15:15] LABS: Lactic Acid 1.6 mmol/L (0.4-1.9)
[2019-12-25 15:25] LABS: Differential Indicated SCAN CRITERIA MET
[2019-12-25 15:27] LABS: Reactive Lymphocyte RARE
--- NOTE | 2019-12-25 15:27 | ED.DCSUM_ITS ---
- ER Visit Summary Date of Service: 12/25/19 Chief Complaint: Shortness of breath History of Present Illness: The patient is a 54 M who goes to the [facility]. He reports his shortness of breath is chronic, but much worse than usual today. He reports he is had a cough for the past 4 to 5 days is productive of guzman sputum without blood. Has had chills, but no fever. He reports that he has had left lower chest pain is been constant for the fast past 4 days. The sharp pain is 9 at 10 at worst and 6 out of 10 currently. Is increased with coughing. Nothing makes this better. Patient reports that his shortness of breath is severe at worst mild currently. Is worsened by exertion or laying flat. Is also worsened by coughing. Is on 2 L of home O2. He has a nebulizer, but reports he ran out of his albuterol 2 weeks ago. Physical Examination: Vitals: 98.2, 113/87, 133, 24, 87% on room air which is hypoxic. General: Well-nourished and well-developed. Head: Normocephalic atraumatic. Neck: Supple, no lymphadenopathy. No JVD. Nontender. Cardiovascular: Tachycardic regular rhythm. No murmurs. Respiratory: Saeed distress. Mild wheezing bilaterally with greatly decreased air movement. Abdominal: Soft, nontender, nondistended, normal bowel sounds. No guarding, rebound, or peritoneal signs. Back: Nontender. Extremities: Nontender, no edema. Skin: Normal color, no rash. Neurologic: Alert and oriented ?3. Cranial nerves II through XII are intact. Normal strength and sensation. Psych: Normal affect. Test Results: EKG sinus tach [address] changes. Troponin is negative. Chem-7 shows a CO2 of 34, creatinine 0.68, glucose 144. Lactic acid is 1.6. CBC shows segmented for 79, lymphocytes of 8, monocytes of 11. Chest x-ray shows a right lower lobe infiltrate. Emergency Department Course and Treatment: Patient was given albuterol Atrovent aerosols. He is given Solu-Medrol IV. He was given Rocephin and Zithromax IV. He actually worsened while in the emergency department despite these treatments and was placed on BiPAP. Treatment Plan: The patient was discussed with Dr. Sharma. He will be admitted to the hospital for further evaluation and treatment. Disposition: Admitted in serious condition. Impression: 1. Pneumonia, right lower lobe. 2. COPD. 3. Acute on chronic respiratory failure on BiPAP. 4. Critical care time 33 minutes. This note was generated with [employer] software. It may contain incorrect words, spelling, and punctuation that were not noted in review of the chart prior to signing ED Disposition - Plan for ED Patient: Referrals: Antonette Jeffrey, CATHLEEN-C [Primary Care Provider] -
[2019-12-25] MEDS: Albuterol 2.5 MG/3 ML VIAL.NEB. INHALATION ×2 (15:44→15:45)
--- NOTE | 2019-12-25 15:45 | HP.PCM_ITS ---
History of Present Illness Date of Admission: 12/25/19 Chief Complaint: SOB The patient is a 54 year old M with a PMH as below, he is not compliant with his medications and he ran out of his inhalers found a week ago. He says that he started having shortness of breath about a week ago that significantly worsened today. He also is had a cough that is been productive of guzman sputum for the last for 5 days. He does not smoke anymore. When he presented to the ER he was hypoxic on room air to 87%, he is supposed to be on 2 L nasal cannula at home. Chest x-ray shows a possible early infiltrate. Lactic acid on admission was normal and he denies any fevers but has had chills. Past Medical History Past Medical History (Chronic Problems): Chronic Problems (Last Reviewed 11/05/19 @ 12:36 by Kade Castellon DO) Respiratory failure with hypoxia (Chronic) Stage 4 very severe COPD by GOLD classification (Chronic) FEV1 23% of predicted Tobacco abuse (Chronic) Severe malnutrition (Chronic) Medical History: Medical History (Last Reviewed 11/05/19 @ 12:36 by Kade Castellon DO) COPD exacerbation (Acute) J44.1 Tobacco abuse (Chronic) Z72.0 Severe malnutrition (Chronic) E43 Allergies No Known Allergies Allergy (Verified 12/25/19 14:07) Home Medications: Ambulatory Orders Medication Instructions Recorded Albuterol Aerosols [Ventolin 2.5 mg INHALATION Q2H PRN PRN #1 03/28/19 Aerosols] box Nebulizer [Lc Star] 1 ea MC UD #1 ea 03/28/19 albuterol sulfate 90 mcg/actuation 1 - 2 puff INHALATION Q4H PRN PRN 07/11/19 aerosol inhaler #1 inhaler fluticasone fur. 100 mcg-umeclid 1 inh INHALATION DAILY #1 device 07/11/19 62.5 mcg-vilant 25 mcg inhalat.powder Surgical History: Surgical History (Last Reviewed 11/05/19 @ 12:36 by Kade Castellon DO) Collapse of lung (Resolved) J98.19 Surgical History: - - Hx PTX s/p chest tube placement. Psychiatric History: No pertinent psych hx Smoking Status: Former smoker Tobacco Use: Cigarettes Alcohol: None Drugs: None - *Family History Maternal Family History: Family History (Last Reviewed 11/05/19 @ 12:36 by Kade Castellon DO) Father COPD (chronic obstructive pulmonary disease) Mother Heart disease COPD (chronic obstructive pulmonary disease) History Items: - - Patient with a maternal and paternal family history of chronic lung disease, chronic COPD, both tobacco users. Paternal Family History: Family History (Last Reviewed 11/05/19 @ 12:36 by Kade Castellon DO) Father COPD (chronic obstructive pulmonary disease) Mother Heart disease COPD (chronic obstructive pulmonary disease) History Items: - - Patient with a maternal and paternal family history of chronic lung disease, chronic COPD, both tobacco users. Review of Systems Constitutional: Reports: Chills. Denies: Fever HEENT: Denies: Head Aches, Sinus Congestion, Sinus Drainage Cardiovascular: Denies: Chest Pain, Palpitations Respiratory: Reports: Cough, Shortness of Breath, Sputum production. Denies: Shortness of breath at rest Gastrointestinal: Denies: Abdominal Pain, Nausea, Vomiting Genitourinary: Denies: Dysuria Musculoskeletal: Denies: Joint Pain, Joint Tenderness Skin: Denies: Rash, Wounds Neurological: Denies: Numbness, Tingling, Focal weakness Psychiatric: Denies: Anxiety, Depression Hematologic/ Lymphatic: Denies: Easy Bruising, Easy Bleeding VTE Information - Inpt Only VTE Present on Admission: No - Physical Exam Vitals/I&O's: Vital Signs Temp Pulse Resp BP Pulse Ox 99.1 F 128 H 26 H 120/89 H 92 12/25/19 14:46 12/25/19 14:46 12/25/19 14:46 12/25/19 14:46 12/25/19 14:46 Oxygen Flow Rate (L/min) 2.5 Oxygen Delivery Method Nasal Cannula Weight: 130 lb Body Mass Index (BMI) 17.1 General: Alert, Oriented x3, Cooperative, No apparent distress HEENT: Atraumatic, PERRLA, EOMI, Normocephalic Oral: Dry Mucosa Neck: Supple, No JVD Lungs: No rhonchi, No rales, - - Very little air movement Cardiovascular: Regular Rhythm, Normal S1, Normal S2, No murmurs, Tachycardic Abdomen: Soft, Non Tender, Non-Distended, No Hepato-splenomegaly Extremities: No edema, Capillary Refill Less than 3 Seconds Skin: No rashes, No breakdown Neurological: Neuro grossly intact, Sensory exam intact to light touch and pain Psych/Mental Status: Normal Affect, Appropriate Laboratory Results 12/25/19 14:32: WBC 7.8, RBC 4.93, Hgb 15.3, Hct 47.1, MCV 95.5 H, MCH 31.0, MCHC 32.5, RDW Std Deviation 47.5 H, RDW Coeff of Kristopher 13.2, Plt Count 249, MPV 9.7, Immature Gran % (Auto) 0.400, Neut % (Auto) 79.0 H, Lymph % (Auto) 8.1 L, [place] % (Auto) 11.2 H, Eos % (Auto) 0.1, Baso % (Auto) 1.2 H, Absolute Neuts (auto) 6.2, Absolute Lymphs (auto) 0.63 L, Nucleated RBC % 0, Reactive Lymphocytes RARE 12/25/19 14:32: Sodium 136, Potassium 4.1, Chloride 100, Carbon Dioxide 34.0 H, Anion Gap 2 L, BUN 11, Creatinine 0.68 L, Estim Creat Clear Calc 102.37, Est GFR (MDRD) Af Amer 154, Est GFR (MDRD) Non-Af 128, BUN/Creatinine Ratio 16.1, Glucose 144 H, Calcium 9.1, Troponin I < 0.015 12/25/19 14:32: Lactic Acid 1.6 Current Medications Albuterol Sulfate (Ventolin Aerosols) 2.5 mg INHALATION Q5M MARIA R Stop: 12/25/19 15:51 Last Admin: 12/25/19 15:45 Dose: 2.5 mg Documented by: Sodium Chloride () 500 mls @ 999 mls/hr IV .Q31M ONE Last Admin: 12/25/19 14:44 Dose: 999 mls/hr Documented by: Ceftriaxone Sodium (Rocephin) 1 gm in 50 mls @ 100 mls/hr IV X1 ONE Stop: 12/25/19 15:57 Azithromycin 500 mg/ Dextrose 255 mls @ 250 mls/hr IV X1 ONE Stop: 12/25/19 16:29 Assessment/Plan All Active Problems (Last Reviewed 11/05/19 @ 12:36 by Kade Castellon DO) Hypoxia (Acute) Collapse of lung (Resolved) COPD exacerbation (Acute) 1. COPD exacerbation with community-acquired pneumonia leading to acute hypoxic respiratory failure -Despite his vital signs I do not feel he septic given his normal lactic acid -His COPD is likely the cause for his tachypnea as well as his tachycardia -He has no leukocytosis and is afebrile -Continue with Solu-Medrol, azithromycin, Rocephin, and will continue with his oxygen at 4 L, his baseline is 2 -Continue with duo nebs and will resume his home medications once they are verified DVT: Amelia Code Visit Inpatient E&M: 75875 Init Hosp L2
[2019-12-25] MEDS: Ceftriaxone 1 GM/50 ML BAG IV (16:02)
[2019-12-25] MEDS: 0.9% Normal Saline 1,000 ML 75 ML IV (22:20)
[2019-12-25] MEDS: 0.9% Saline Lock 10 ML Syringe IV (22:21)
[2019-12-25] MEDS: MELATONIN 3 MG TABLET PO (22:26)
[2019-12-26] VITALS (10 sets, daily range): BP systolic 127–143; BP diastolic 67–85; PULSE 88–111; RESP 18–24; TEMP 36.3–36.5; O2SAT 96–100
[2019-12-26 05:41] LABS: Absolute Lymphocyte Count 0.75 X10^3/uL (0.83-4.51); Absolute Neutrophil Count 5.9 X10^3/uL (2.0-7.7); Basophil# 0.09 X10^3/uL; Basophil% 1.2 % (0-1); Eosinophil# 0.02 X10^3/uL; Eosinophils% 0.3 % (0-5); Hematocrit 44.5 % (40-54); Hemoglobin 14.1 g/dL (13.0-16.5); Lymphocyte # 0.75 X10^3/ul (4.0); Lymphocyte % 10.4 % (19-41); Mean Corp Hgb Conc 31.7 g/dL (32-36); Mean Corpuscular Hgb 30.5 pg (27.0-32.0); Mean Corpuscular Volume 96.1 fL (80-94); Mean Platelet Vol. 9.9 fl (6.2-12.0); Monocyte% 5.5 % (0-10); NRBC Flagged by Analyzer 0 % (0-5); Neutrophil # 5.91 X10^3/uL (2.7-7.7); POSITIVE MORPHOLOGY YES; Platelet Count 251 K/mm3 (150-450); RBC Distribution Width CV 13.4 % (11.6-14.6); RBC Distribution Width SD 47.9 fl (35.1-43.9); Red Blood Count 4.63 M/mm3 (4.6-6.2); White Blood Count 7.2 K/mm3 (4.4-11.0)
[2019-12-26 05:48] LABS: Differential Indicated SCAN CRITERIA MET
[2019-12-26 05:49] LABS: Anion Gap 3 (5-15); BUN 11 mg/dL (7-18); BUN/Creat Ratio 19.1 RATIO (10-20); Calcium,Total 9.3 mg/dL (8.5-10.1); Chloride 101 mmol/L (98-107); Creatinine, Serum 0.58 mg/dL (0.70-1.30); EST Glomerular Filtration Rate 156 mL/min (>60); Est Glom Filt Rate - Afr Amer 189 mL/min (>60); Glucose 138 mg/dL (74-106); Potassium 4.8 mmol/L (3.5-5.1); Sodium Level 138 mmol/L (136-145)
[2019-12-26] MEDS: 0.9% Saline Lock 10 ML Syringe IV ×2 (06:27→21:24)
[2019-12-26 06:35] LABS: Differential Comment SCANNED
[2019-12-26] MEDS: Ipratropium/Albuterol Sulfate 3 ML AMPUL.NEB INHALATION ×4 (06:43→19:27)
--- NOTE | 2019-12-26 10:30 | CASEMGMT ---
BIMAL VOSS SEISMIC SURVEY ASSISTANT SHANIKA to room to meet with patient for initial transition planning/care coordination assessment. BIMAL VOSS introduced self and role at [facility]. Pt voices understanding and consents to assessment at this time. Pt resting in bed in no distress at this time. Pt is A/O at this time and answers all questions appropriately. Care providers, pharmacy, and demographics verified/updated at this time. PCP: FINISHED STOCK INSPECTOR/Antonette Jeffrey at [facility] Specialists: None Preferred Pharmacy: [facility] Retail Insurance: None/Self Pay. PFS to come talk with pt. Prescription Benefit: No. has concerns about cost of meds @ discharge. May need [facility] Rx Assist. Living Will/HPOA: States thinks he has completed LW and Healthcare POA, and if he has, states it is his sister, Natividad Marroquin. Pt made aware, if POA has not been completed, that Healthcare decisions would go to his 3 daughters. Pt stated he would not want them to make healthcare decisions, that he would want his sister, Natividad, to do that. Pt made aware, if he would like do AD while @ [facility] that SW could assist him with this while here, or he could complete as an out-pt. Given AD info and Latin Dance Instructor Rac card. Pt states he does not want to meet with anyone now, but thanked BIMAL VOSS for the information. LNOK: Sister, Natividad. Has 3 adult daughters. Living Arrangements: Lives with a roommate. They rent a 2-story home. Pt states he stays mostly on the main floor. States his roommate does all the grocery shopping, meals, and home mgmt tasks. Pt states he is independent w/ADL's. Transportation: Pt states he does not drive. His roommate drives but his vehicle is not working right now. States either his roommates ex- provides transportation or he calls a cab. States thinks his roommates ex- will be able to take him home @ discharge. DME: has the following DME: O2 @ 2 L/M through [employer]. States has concentrator and portability. Pt has his portable O2 tank with him to go home on @ discharge. States has a nebulizer. Pt states no need for further DME at this time. HHC/SNF: No history of either and denies needs. Pt wishes to return home and states has no concerns with going home at time of discharge. CM to follow for any discharge planning/needs. Pt voices no further concerns/needs at this time. Advised pt to ask for CM if any further questions/concerns/needs arise. Voices understanding. PLAN: Home CM/SW to follow for cost of meds at discharge. May need [facility] RX Assist Catherine BENNETT RN CM
--- NOTE | 2019-12-26 10:42 | PCA ---
Patient got up to go to the bathroom i seen pants was soiled i went and got patient another pair and he refused to change pants and said they were fine. so will attempt to change next time when up. told nurse and she said she will try
--- NOTE | 2019-12-26 11:00 | PN_ITS ---
Reason for Visit: COPD Subjective: breathing unchanged. still coughing. Vitals/I&O's: Vital Signs Temp Pulse Resp BP Pulse Ox 36.4 C L 90 20 H 140/84 H 96 12/26/19 08:29 12/26/19 08:29 12/26/19 08:29 12/26/19 08:29 12/26/19 08:29 Oxygen Flow Rate (L/min) 2 Oxygen Delivery Method Nasal Cannula Weight: 48.489 kg Body Mass Index (BMI) 14.1 Intake and Output for Last 24 Hours 12/24/19 12/25/19 12/26/19 23:59 23:59 23:59 Intake Total 1105 / 1105 1220 / 1220 Balance 1105 / 1105 1220 / 1220 General: Alert, No apparent distress HEENT: Atraumatic, Normocephalic Oral: Moist Mucosa, No Gingival or Mucosal Lesions/ Ulcerations Neck: No Nodes, Trachea Midline Lungs: Diminished, - - faint wheezes Cardiovascular: Regular rate, Regular Rhythm, Normal S1, Normal S2, No murmurs Abdomen: Bowel Sounds Present, Soft, Non Tender, Non-Distended, No Hepato- splenomegaly Extremities: No edema, Capillary Refill Less than 3 Seconds Skin: No rashes, No breakdown Musculoskeletal: Cachexia, Muscle Wasting Psych/Mental Status: Appropriate, Flat Affect Microbiology Past 72 Hours 12/25/19 21:30 Urine, Random Streptococcus pneumoniae Antigen (M - Final 12/25/19 21:30 Urine, Random Legionella Antigen - Final Laboratory Results 12/25/19 14:32: WBC 7.8, RBC 4.93, Hgb 15.3, Hct 47.1, MCV 95.5 H, MCH 31.0, MCHC 32.5, RDW Std Deviation 47.5 H, RDW Coeff of Kristopher 13.2, Plt Count 249, MPV 9.7, Immature Gran % (Auto) 0.400, Neut % (Auto) 79.0 H, Lymph % (Auto) 8.1 L, [place] % (Auto) 11.2 H, Eos % (Auto) 0.1, Baso % (Auto) 1.2 H, Absolute Neuts (auto) 6.2, Absolute Lymphs (auto) 0.63 L, Nucleated RBC % 0, Reactive Lymphocytes RARE 12/25/19 14:32: Sodium 136, Potassium 4.1, Chloride 100, Carbon Dioxide 34.0 H, Anion Gap 2 L, BUN 11, Creatinine 0.68 L, Estim Creat Clear Calc 102.37, Est GFR (MDRD) Af Amer 154, Est GFR (MDRD) Non-Af 128, BUN/Creatinine Ratio 16.1, Glucose 144 H, Calcium 9.1, Troponin I < 0.015 12/25/19 14:32: Lactic Acid 1.6 12/26/19 05:14: WBC 7.2, RBC 4.63, Hgb 14.1, Hct 44.5, MCV 96.1 H, MCH 30.5, MCHC 31.7 L, RDW Std Deviation 47.9 H, RDW Coeff of Kristopher 13.4, Plt Count 251, MPV 9.9, Immature Gran % (Auto) 0.600, Neut % (Auto) 82.0 H, Lymph % (Auto) 10.4 L, [place] % (Auto) 5.5, Eos % (Auto) 0.3, Baso % (Auto) 1.2 H, Absolute Neuts (auto) 5.9, Absolute Lymphs (auto) 0.75 L, Nucleated RBC % 0, Differential Comment SCANNED 12/26/19 05:14: Sodium 138, Potassium 4.8, Chloride 101, Carbon Dioxide 34.0 H, Anion Gap 3 L, BUN 11, Creatinine 0.58 L, Estim Creat Clear Calc 98.70, Est GFR (MDRD) Af Amer 189, Est GFR (MDRD) Non-Af 156, BUN/Creatinine Ratio 19.1, Glucose 138 H, Calcium 9.3 Current Medications Acetaminophen (Tylenol) 650 mg PO Q6H PRN PRN PRN Reason: Pain Score 1-10/Temp > 100.7 F Albuterol/Ipratropium (Duoneb) 3 ml INHALATION Q4HWA.RT MARIA R Last Admin: 12/26/19 10:40 Dose: 3 ml Documented by: Enoxaparin Sodium (Lovenox) 40 mg SC DAILY [facility] Sodium Chloride () 500 mls @ 999 mls/hr IV .Q31M ONE Last Infusion: 12/25/19 16:03 Dose: Infused Documented by: Sodium Chloride () 250 mls @ 15 mls/hr IV .[id number] PRN PRN Reason: Saline Flush Sodium Chloride () 250 mls @ 15 mls/hr IV .[id number] PRN PRN Reason: Additional IVPB Infusion Sodium Chloride () 1,000 mls @ 75 mls/hr IV .[id number] MARIA R Last Infusion: 12/26/19 09:34 Dose: 75 mls/hr Documented by: Azithromycin 500 mg/ Dextrose 255 mls @ 250 mls/hr IV Q24 [facility] Last Infusion: 12/26/19 09:34 Dose: Infused Documented by: Ceftriaxone Sodium 2 gm/ (Sodium Chloride) 50 mls @ 100 mls/hr IV Q24 [facility] Melatonin (Melatonin) 3 mg PO QHS PRN PRN PRN Reason: INSOMNIA Last Admin: 12/25/19 22:26 Dose: 3 mg Documented by: Methylprednisolone (Solu-Medrol) 40 mg IV Q8 MARIA R Last Admin: 12/26/19 06:27 Dose: 40 mg Documented by: Ondansetron HCl (Zofran) 4 mg IV Q8H PRN PRN PRN Reason: NAUSEA/VOMITING Sodium Chloride () 10 - 40 ml IV UD PRN PRN Reason: SALINE FLUSH Last Admin: 12/26/19 06:27 Dose: 10 ml Documented by: STROKE Vital Signs/Narrative: Vital Signs Temp Pulse Resp BP Pulse Ox 12/26/19 08:29 36.4 C L 90 20 H 140/84 H 96 Medical Necessity - Tobacco Use Smoking Status: Former smoker Tobacco Use: Cigarettes Assessment/Plan All Active Problems (Last Reviewed 11/05/19 @ 12:[address] Kade Castellon, DO) Hypoxia (Acute) Collapse of lung (Resolved) COPD exacerbation (Acute) 1. AECOPD * ongoing * continue BDs, methylpred * stage IV by GOLD criteria 2. pneumonia * suspected pneumococcal * continue azithromycin and CTX * pulm toilet * urinary antigens negative for strep and legionella. * I wound not categorize this patient as sepsis as I feel his tachycardia and tachypnea are attributable to #1. 3. Acute hypoxic respiratory insuffiency * 2/2 above * wean oxygen as tolerated 4. VTE prophylaxis: moderate risk. LMWH Code Visit Inpatient E&M: 31074 Subs Hosp L2
[2019-12-26] MEDS: Enoxaparin 40 MG/0.4 ML Syringe SC (11:24)
[2019-12-26] MEDS: 0.9% Normal Saline 1,000 ML 75 ML IV (13:08)
--- NOTE | 2019-12-26 14:27 | CASEMGMT ---
Social Work Note Pt is listed as self-pay. SW reviewed PFS notes, pt was provided HCAP application denied ER self pay deposit. PFS has attempted to call pt's room to discuss self-pay with no answer. PFS to continue to try to call pt's room. Patti Sarmiento AIRCRAFT STRUCTURE MECHANIC< SUPPORT REPRESENTATIVE
[2019-12-27] VITALS (8 sets, daily range): BP systolic 131–155; BP diastolic 82–93; PULSE 80–110; RESP 19–24; TEMP 36.5–36.9; O2SAT 95–99
[2019-12-27] MEDS: 0.9% Normal Saline 1,000 ML 75 ML IV ×2 (02:42→17:28)
[2019-12-27] MEDS: 0.9% Saline Lock 10 ML Syringe IV (05:27)
[2019-12-27] MEDS: Ipratropium/Albuterol Sulfate 3 ML AMPUL.NEB INHALATION ×4 (07:06→18:35)
--- NOTE | 2019-12-27 09:23 | PN_ITS ---
Reason for Visit: pneumonia Subjective: Breathing fair. Coughing but non-productive. Vitals/I&O's: Vital Signs Temp Pulse Resp BP Pulse Ox 36.6 C 103 H 20 H 149/93 H 95 12/27/19 07:23 12/27/19 07:23 12/27/19 07:23 12/27/19 07:23 12/27/19 07:23 Oxygen Flow Rate (L/min) 2 Oxygen Delivery Method Nasal Cannula Weight: 48.489 kg Body Mass Index (BMI) 14.1 Intake and Output for Last 24 Hours 12/25/19 12/26/19 12/27/19 23:59 23:59 23:59 Intake Total 1105 / 1105 2255 / 2255 1000 / 1000 Output Total 275 / 275 Balance 1105 / 1105 2255 / 2255 725 / 725 General: Alert, No apparent distress HEENT: Atraumatic, Normocephalic Oral: Moist Mucosa, No Gingival or Mucosal Lesions/ Ulcerations Neck: No Nodes, Trachea Midline Lungs: Diminished, Wheezes Cardiovascular: Regular rate, Regular Rhythm, Normal S1, Normal S2, No murmurs Abdomen: Bowel Sounds Present, Soft, Non Tender, Non-Distended Extremities: No edema, No Calf Tenderness Skin: No rashes, No breakdown Musculoskeletal: Cachexia, Muscle Wasting Psych/Mental Status: Normal Affect, Appropriate Microbiology Past 72 Hours 12/25/19 21:30 Urine, Random Streptococcus pneumoniae Antigen (M - Final 12/25/19 21:30 Urine, Random Legionella Antigen - Final Current Medications Acetaminophen (Tylenol) 650 mg PO Q6H PRN PRN PRN Reason: Pain Score 1-10/Temp > 100.7 F Albuterol/Ipratropium (Duoneb) 3 ml INHALATION Q4HWA.RT [facility] Last Admin: 12/27/19 07:06 Dose: 3 ml Documented by: Enoxaparin Sodium (Lovenox) 40 mg SC DAILY [facility] Last Admin: 12/26/19 11:24 Dose: 40 mg Documented by: Sodium Chloride () 500 mls @ 999 mls/hr IV .Q31M ONE Last Infusion: 12/25/19 16:03 Dose: Infused Documented by: Sodium Chloride () 250 mls @ 15 mls/hr IV .[id number] PRN PRN Reason: Saline Flush Sodium Chloride () 250 mls @ 15 mls/hr IV .[id number] PRN PRN Reason: Additional IVPB Infusion Sodium Chloride () 1,000 mls @ 75 mls/hr IV .[id number] [facility] Last Admin: 12/27/19 02:42 Dose: 75 mls/hr Documented by: Azithromycin 500 mg/ Dextrose 255 mls @ 250 mls/hr IV Q24 [facility] Last Infusion: 12/26/19 09:34 Dose: Infused Documented by: Ceftriaxone Sodium 2 gm/ (Sodium Chloride) 50 mls @ 100 mls/hr IV Q24 [facility] Last Infusion: 12/26/19 11:54 Dose: Infused Documented by: Melatonin (Melatonin) 3 mg PO QHS PRN PRN PRN Reason: INSOMNIA Last Admin: 12/25/19 22:26 Dose: 3 mg Documented by: Methylprednisolone (Solu-Medrol) 40 mg IV Q8 MARIA R Last Admin: 12/27/19 05:27 Dose: 40 mg Documented by: Ondansetron HCl (Zofran) 4 mg IV Q8H PRN PRN PRN Reason: NAUSEA/VOMITING Sodium Chloride () 10 - 40 ml IV UD PRN PRN Reason: SALINE FLUSH Last Admin: 12/27/19 05:27 Dose: 10 ml Documented by: STROKE Vital Signs/Narrative: Vital Signs Temp Pulse Resp BP Pulse Ox 12/27/19 07:23 36.6 C 103 H 20 H 149/93 H 95 12/27/19 07:06 108 H 20 H 95 Medical Necessity - Tobacco Use Smoking Status: Former smoker Tobacco Use: Cigarettes Assessment/Plan All Active Problems (Last Reviewed 11/05/19 @ 12:[address] Kade Castellon, DO) Hypoxia (Acute) Collapse of lung (Resolved) COPD exacerbation (Acute) 1. AECOPD * ongoing * continue BDs, methylpred * stage IV by GOLD criteria 2. pneumonia * suspected pneumococcal * continue azithromycin and CTX * pulm toilet * urinary antigens negative for strep and legionella. * I wound not categorize this patient as sepsis as I feel his tachycardia and tachypnea are attributable to #1. 3. Acute hypoxic respiratory insuffiency * 2/2 above * wean oxygen as tolerated 4. VTE prophylaxis: moderate risk. LMWH With patient's permission, I spoke with his sister on the phone. Explained that I anticipated him getting better and hopefully can discharge over the weekend. Code Visit Inpatient E&M: 89199 Subs Hosp L2
[2019-12-27] MEDS: Enoxaparin 40 MG/0.4 ML Syringe SC (09:57)
--- NOTE | 2019-12-27 10:21 | CASEMGMT ---
Social Work Note SW reviewed PFS notes, PFS has attempted to call pt with no answer. SW in to speak with pt in regards to self-pay status. SW met with pt and introduced self and role at [facility]. Pt sleeping but woke up when this worker entered the room. Pt confirms that he currently doesn't have insurance at this time. SW provided pt with Medicaid Application, HCAP Application, [place] [employer] information, RX assistance programs and transportation resources as per previous notes pt doesn't drive. Pt thanked this worker, denied additional needs or concerns at this time. Patti Sarmiento SUPERVISOR HOME RESTORATION SERVICE, COMMERCIAL PRODUCER
--- NOTE | 2019-12-27 11:14 | CASEMGMT ---
Addendum entered by Jennifer Joya 12/27/19 15:34: Call received back from Azucena @ [employer]. She states the billing dep't has reviewed pt's application and he qualifies for Tier 1 Program which is MCR allowable. Pt's cost for oxygen per month will be $91.95. BIMAL VOSS to room and informed pt of this. Pt voices understanding and that he appreciates the assistance. Addendum entered by Jennifer Joya 12/27/19 13:53: Assisted pt w/completing Reduced Payment Application for Oxygen. Form faxed to [employer] at this time. Original Note: BIMAL VOSS NOTE: Call placed to [facility] and spoke to Azucena. She states their current orders are for O2 @ 2L/M continuously and 2 L/M bleed in for CPAP @ HS. Per her notes, pt tried the NIV and unable to tolerate it and returned it after a week. Discussed self-pay with Azucena. She states pt had [employer] insurance and oxygen was billed through them when they supplied it for him, but [employer] ended 11/05/19. She recommended pt complete a Financial Hardship Form to see if he qualifies for reduced payment. She states will fax form to BIMAL VOSS to have pt complete while here @ [facility]. Will give to pt to have him complete when form is available. Plan: May need Home oxygen walking test completed prior to discharge. If pt requires more than 2 L/M via N/C, will need new Script faxed to [employer]. Pt has concentrator at home and has portable tank in his room @ [facility] to go home on, so will not need a delivery to his room. Catherine BENNETT RN, CM
--- NOTE | 2019-12-27 15:04 | CASEMGMT ---
Addendum entered by Patti Sarmiento 12/27/19 16:22: SW completed RX assistance program for pt to use when pt is discharged. Original Note: Social Work Note SW back in to speak with pt and provided pt with counseling resources. SW asked pt if he wanted this worker to set up an appointment for pt with a counseling agency and pt denied. Pt states I just need some sleep. Patti Sarmiento LOADING DOCK HAND, PARISH NURSE
[2019-12-27] MEDS: MELATONIN 3 MG TABLET PO (19:40)
[2019-12-28] VITALS (11 sets, daily range): BP systolic 133–158; BP diastolic 89–99; PULSE 91–112; RESP 16–26; TEMP 36.4–36.8; O2SAT 90–96
[2019-12-28] MEDS: 0.9% Normal Saline 1,000 ML 75 ML IV (05:37)
[2019-12-28] MEDS: Ipratropium/Albuterol Sulfate 3 ML AMPUL.NEB INHALATION ×5 (06:47→23:35)
[2019-12-28] MEDS: Enoxaparin 40 MG/0.4 ML Syringe SC (11:00)
--- NOTE | 2019-12-28 12:37 | PN_ITS ---
Reason for Visit: COPD exacerbation Subjective: Still short of breath. Cough up phlegm today. Vitals/I&O's: Vital Signs Temp Pulse Resp BP Pulse Ox 36.6 C 112 H 20 H 148/99 H 96 12/28/19 10:54 12/28/19 11:04 12/28/19 11:04 12/28/19 10:54 12/28/19 10:54 Oxygen Flow Rate (L/min) 4 Oxygen Delivery Method Nasal Cannula Weight: 48.489 kg Body Mass Index (BMI) 14.1 Intake and Output for Last 24 Hours 12/26/19 12/27/19 12/28/19 23:59 23:59 23:59 Intake Total 2255 / 2255 3177.5 / 3177.5 1211.25 / 1211.25 Output Total 275 / 275 Balance 2255 / 2255 2902.5 / 2902.5 1211.25 / 1211.25 General: Alert, No apparent distress HEENT: Atraumatic, Normocephalic Oral: Moist Mucosa, No Gingival or Mucosal Lesions/ Ulcerations Neck: No Nodes, Trachea Midline Lungs: Diminished, Wheezes Cardiovascular: Regular rate, Regular Rhythm, Normal S1, Normal S2, No murmurs Abdomen: Bowel Sounds Present, Soft, Non Tender, Non-Distended, No Hepato- splenomegaly Extremities: No edema, No Calf Tenderness Skin: No rashes, No breakdown Psych/Mental Status: Normal Affect, Appropriate Microbiology Past 72 Hours 12/25/19 15:15 Blood Culture (Wb) #2 - Anticubital Right Blood Culture - Preliminary No growth in 48 hours. 12/25/19 14:45 Blood Culture (Wb) - Anticubital Left Blood Culture - Preliminary No growth in 48 hours. 12/25/19 21:30 Urine, Random Streptococcus pneumoniae Antigen (M - Final 12/25/19 21:30 Urine, Random Legionella Antigen - Final Current Medications Acetaminophen (Tylenol) 650 mg PO Q6H PRN PRN PRN Reason: Pain Score 1-10/Temp > 100.7 F Albuterol/Ipratropium (Duoneb) 3 ml INHALATION Q4HWA.RT [facility] Last Admin: 12/28/19 11:04 Dose: 3 ml Documented by: Enoxaparin Sodium (Lovenox) 40 mg SC DAILY [facility] Last Admin: 12/28/19 11:00 Dose: 40 mg Documented by: Sodium Chloride () 500 mls @ 999 mls/hr IV .Q31M ONE Last Infusion: 12/25/19 16:03 Dose: Infused Documented by: Sodium Chloride () 250 mls @ 15 mls/hr IV .[id number] PRN PRN Reason: Saline Flush Sodium Chloride () 250 mls @ 15 mls/hr IV .[id number] PRN PRN Reason: Additional IVPB Infusion Sodium Chloride () 1,000 mls @ 75 mls/hr IV .[id number] MARIA R Last Admin: 12/28/19 05:37 Dose: 75 mls/hr Documented by: Azithromycin 500 mg/ Dextrose 255 mls @ 250 mls/hr IV Q24 [facility] Last Admin: 12/28/19 11:49 Dose: 250 mls/hr Documented by: Ceftriaxone Sodium 2 gm/ (Sodium Chloride) 50 mls @ 100 mls/hr IV Q24 [facility] Last Infusion: 12/28/19 11:43 Dose: Infused Documented by: Melatonin (Melatonin) 3 mg PO QHS PRN PRN PRN Reason: INSOMNIA Last Admin: 12/27/19 19:40 Dose: 3 mg Documented by: Methylprednisolone (Solu-Medrol) 40 mg IV Q8 [facility] Last Admin: 12/28/19 05:37 Dose: 40 mg Documented by: Ondansetron HCl (Zofran) 4 mg IV Q8H PRN PRN PRN Reason: NAUSEA/VOMITING Sodium Chloride () 10 - 40 ml IV UD PRN PRN Reason: SALINE FLUSH Last Admin: 12/27/19 05:27 Dose: 10 ml Documented by: STROKE Vital Signs/Narrative: Vital Signs Temp Pulse Resp BP Pulse Ox 12/28/19 11:04 112 H 20 H 12/28/19 10:54 36.6 C 91 26 H 148/99 H 96 Medical Necessity - Tobacco Use Smoking Status: Former smoker Tobacco Use: Cigarettes Assessment/Plan All Active Problems (Last Reviewed 11/05/19 @ 12:[address] Kade Castellon, DO) Hypoxia (Acute) Collapse of lung (Resolved) COPD exacerbation (Acute) 1. AECOPD * ongoing, no significant improvement * continue BDs, methylpred * stage IV by GOLD criteria * consult pulm given any noticeable improvement. * unclear if patient can be improved to any significant degree. 2. pneumonia * suspected pneumococcal * continue azithromycin and CTX * pulm toilet * urinary antigens negative for strep and legionella. * I wound not categorize this patient as sepsis as I feel his tachycardia and tachypnea are attributable to #1. * sample sent for culture 3. Acute hypoxic respiratory insuffiency * 2/2 above * wean oxygen as tolerated 4. VTE prophylaxis: moderate risk. LMWH Code Visit Inpatient E&M: 28585 Subs Hosp L2
--- NOTE | 2019-12-28 14:23 | CPS ---
Pt on phone, kept stating he wanted to go home. Shortly after breathing tx started, patient took mask off and threw it to the floor. Pt continued to state he was going home.
--- NOTE | 2019-12-28 14:45 | NURSING ---
LATE ENTRY - 1400 - PT SITTING UP IN CHAIR @ BS. HE HAD TAKEN OXYGEN OFF. O2 SAT 93% ON RA WHILE TALKING ON TELEPHONE - TELLING PERSON ON THE OTHER END I WANT TO GO HOME - NOW!
--- NOTE | 2019-12-28 16:21 | NURSING ---
pt had removed O2 & was talking on telephone
[2019-12-28] MEDS: 0.9% Saline Lock 10 ML Syringe IV (21:21)
--- NOTE | 2019-12-28 21:39 | CPS ---
pt refuses to try bipap.
[2019-12-29] VITALS (9 sets, daily range): BP systolic 136–155; BP diastolic 87–91; PULSE 85–116; RESP 16–22; TEMP 36.5–37.1; O2SAT 91–97
[2019-12-29] MEDS: MELATONIN 3 MG TABLET PO (00:08)
[2019-12-29] MEDS: 0.9% Saline Lock 10 ML Syringe IV ×4 (05:31→19:59)
[2019-12-29] MEDS: Ipratropium/Albuterol Sulfate 3 ML AMPUL.NEB INHALATION ×4 (07:11→19:05)
--- NOTE | 2019-12-29 08:13 | PCM.CONS.PUL ---
Reason for Consult Date of Consultation: 12/29/19 Reason for Consultation: COPD exacerbation History of Present Illness: The patient is a 54-year-old male, with a history as outlined below, who presented to the emergency department on December 25 with complaints of shortness of breath and cough. The patient is currently followed by myself in the pulmonary medicine clinic. I last saw him in the clinic at the end of October 2019. The patient has an established diagnosis of end-stage COPD. He does have an extensive [id number] smoking history and does continue to smoke cigarettes daily. Pulmonary function studies completed in May 2019 revealed evidence of an irreversible very severe large airways obstructive ventilatory defect with associated hyperinflation, air trapping and symmetric reduction in diffusing capacity. A 6-minute walk test completed in April 2019 revealed a angel oxygen saturation of 91% with ambulation. The patient is currently prescribed once daily Trelegy Ellipta and as needed albuterol. On presentation to the emergency department, the patient was noted to be afebrile, but was tachycardic and tachypneic. Laboratory evaluation revealed no evidence of a leukocytosis. Chemistry profile was notable for an elevated bicarbonate to 34. Lactate was within normal limits. Troponin was negative. Plain film chest x-ray revealed stigmata of obstructive lung disease with hyperinflation and a potential early right perihilar infiltrate. The patient subsequently received aerosol treatments, steroids and antibiotics. He was admitted to the medical surgical floor for further management. I was consulted to evaluate the patient after he failed to respond to conventional treatment for a COPD exacerbation. The patient is currently afebrile and hemodynamically stable. He is maintaining appropriate oxygen saturations on room air. However, the patient does report the continued presence of exertional shortness of breath. Past Medical History Past Medical History (Chronic Problems): Chronic Problems (Last Reviewed 11/05/19 @ 12:[address] Kade Castellon DO) Respiratory failure with hypoxia (Chronic) Stage 4 very severe COPD by GOLD classification (Chronic) FEV1 23% of predicted Tobacco abuse (Chronic) Severe malnutrition (Chronic) Medical History: Medical History (Last Reviewed 11/05/19 @ 12:[address] Kade Castellon DO) COPD exacerbation (Acute) J44.1 Tobacco abuse (Chronic) Z72.0 Severe malnutrition (Chronic) E43 Allergies No Known Allergies Allergy (Verified 12/25/19 14:07) Home Medications: Ambulatory Orders Medication Instructions Recorded Albuterol Aerosols [Ventolin 2.5 mg INHALATION Q2H PRN PRN #1 03/28/19 Aerosols] box albuterol sulfate 90 mcg/actuation 1 - 2 puff INHALATION Q4H PRN PRN 07/11/19 aerosol inhaler #1 inhaler Fluticasone/Umeclidin/Vilanter 1 inh INHALATION DAILY 12/25/19 [Trelegy Ellipta] Surgical History: Surgical History (Last Reviewed 11/05/19 @ 12:[address] Kade Castellon DO) Collapse of lung (Resolved) J98.19 Surgical History: - - Hx PTX s/p chest tube placement. Psychiatric History: No pertinent psych hx Smoking Status: Former smoker Tobacco Use: Cigarettes Alcohol: None Drugs: None - *Family History Maternal Family History: Family History (Last Reviewed 11/05/19 @ 12:[address] Kade Castellon DO) Father COPD (chronic obstructive pulmonary disease) Mother Heart disease COPD (chronic obstructive pulmonary disease) History Items: - - Patient with a maternal and paternal family history of chronic lung disease, chronic COPD, both tobacco users. Paternal Family History: Family History (Last Reviewed 11/05/19 @ 12:[address] Kade Castellon DO) Father COPD (chronic obstructive pulmonary disease) Mother Heart disease COPD (chronic obstructive pulmonary disease) History Items: - - Patient with a maternal and paternal family history of chronic lung disease, chronic COPD, both tobacco users. Review of Systems Constitutional: Reports: Fever, Fatigue. Denies: Chills Eyes: Denies: Blurred vision, Double vision HEENT: Denies: Head Aches, Sinus Congestion, Sinus Drainage Cardiovascular: Denies: Chest Pain, Palpitations Respiratory: Reports: Shortness of Breath, Wheezing Gastrointestinal: Denies: Abdominal Pain, Nausea, Vomiting Genitourinary: Denies: Dysuria Musculoskeletal: Denies: Joint Pain, Joint Tenderness Skin: Denies: Rash, Wounds Neurological: Denies: Numbness, Tingling, Focal weakness Psychiatric: Denies: Anxiety, Depression, Homicidal Ideations, Suicidal Ideations Hematologic/ Lymphatic: Denies: Easy Bruising, Easy Bleeding Objective: The patient's most recent lab work, culture data and imaging studies have all been personally reviewed. Strep and urine Legionella antigens were negative. Sputum culture is pending. - Physical Exam Vitals/I&O's: Vital Signs Temp Pulse Resp BP Pulse Ox 97.7 F L 85 16 155/91 H 91 12/29/19 04:22 12/29/19 07:11 12/29/19 07:11 12/29/19 04:22 12/29/19 07:11 Oxygen Flow Rate (L/min) 3 Oxygen Delivery Method Room Air Weight: 106 lb 14.399 oz Body Mass Index (BMI) 14.1 Intake and Output for Last 24 Hours 12/27/19 12/28/19 12/29/19 23:59 23:59 23:59 Intake Total 3177.5 / 3177.5 2920.00 / 2920.00 540 / 540 Output Total 275 / 275 Balance 2902.5 / 2902.5 2920.00 / 2920.00 540 / 540 General: Alert, Cooperative, No apparent distress HEENT: Atraumatic, Normocephalic Oral: No Gingival or Mucosal Lesions/ Ulcerations Neck: Supple, No Nodes, Trachea Midline Lungs: Diminished, Wheezes Cardiovascular: Regular rate, Regular Rhythm, Normal S1, Normal S2 Abdomen: Bowel Sounds Present, Soft, Non Tender Extremities: No clubbing, No cyanosis, No edema Skin: No breakdown Musculoskeletal: No Tenderness to Palpation of Joints or Extremities, Cachexia Lymphatic: No Cervical, Supraclavicular, or Inguinal Adenopathy Neurological: Neuro grossly intact Psych/Mental Status: Agitated Microbiology 12/25/19 15:15 Blood Culture (Wb) #2 - Anticubital Right Blood Culture - Preliminary No growth in 48 hours. 12/25/19 14:45 Blood Culture (Wb) - Anticubital Left Blood Culture - Preliminary No growth in 48 hours. Clinical Impression(s) from Imaging Studies Chest X-Ray 12/25/19 14:25 IMPRESSION: Hyperinflation. Increased markings in the right perihilar and right infrahilar region suggestive of early infiltrate. Follow-up is recommended. Electronically Signed: Bryan Dominguez, at 15:16 EST , Service support , Current Medications Acetaminophen (Tylenol) 650 mg PO Q6H PRN PRN PRN Reason: Pain Score 1-10/Temp > 100.7 F Albuterol Sulfate (Ventolin Aerosols) 2.5 mg INHALATION Q2H PRN PRN PRN Reason: SHORTNESS OF BREATH Albuterol/Ipratropium (Duoneb) 3 ml INHALATION Q4HWA.RT [facility] Last Admin: 12/29/19 07:11 Dose: 3 ml Documented by: Enoxaparin Sodium (Lovenox) 40 mg SC DAILY [facility] Last Admin: 12/28/19 11:00 Dose: 40 mg Documented by: Sodium Chloride () 500 mls @ 999 mls/hr IV .Q31M ONE Last Infusion: 12/25/19 16:03 Dose: Infused Documented by: Sodium Chloride () 250 mls @ 15 mls/hr IV .[id number] PRN PRN Reason: Saline Flush Sodium Chloride () 250 mls @ 15 mls/hr IV .[id number] PRN PRN Reason: Additional IVPB Infusion Azithromycin 500 mg/ Dextrose 255 mls @ 250 mls/hr IV Q24 [facility] Last Infusion: 12/28/19 12:51 Dose: Infused Documented by: Ceftriaxone Sodium 2 gm/ (Sodium Chloride) 50 mls @ 100 mls/hr IV Q24 [facility] Last Infusion: 12/28/19 11:43 Dose: Infused Documented by: Melatonin (Melatonin) 3 mg PO QHS PRN PRN PRN Reason: INSOMNIA Last Admin: 12/29/19 00:08 Dose: 3 mg Documented by: Methylprednisolone (Solu-Medrol) 40 mg IV Q8 [facility] Last Admin: 12/29/19 05:31 Dose: 40 mg Documented by: Ondansetron HCl (Zofran) 4 mg IV Q8H PRN PRN PRN Reason: NAUSEA/VOMITING Sodium Chloride () 10 - 40 ml IV UD PRN PRN Reason: SALINE FLUSH Last Admin: 12/29/19 05:31 Dose: 10 ml Documented by: Assessment/Plan All Active Problems (Last Reviewed 11/05/19 @ 12:[address] Kade Castellon DO) Hypoxia (Acute) Collapse of lung (Resolved) COPD exacerbation (Acute) RECOMMENDATIONS: 1. Obtain respiratory viral panel. 2. Obtain echocardiogram. 3. Scheduled melatonin 10 mg nightly. 4. Continue antibiotics, bronchodilators and steroids. 5. Encourage incentive spirometer use. IMPRESSIONS: 1. Acute hypoxemic respiratory failure secondary to COPD with exacerbation Concern for community-acquired pneumonia as precipitating etiology. However, the patient is still quite symptomatic despite treatment with antibiotics, steroids and bronchodilators. We will plan to check respiratory viral panel today. Orders for echocardiogram has also been placed to evaluate for the presence of pulmonary hypertension and/or diastolic dysfunction. Recommend continuing steroids, bronchodilators and antimicrobials as ordered. 2. CODE status: Discussed CODE status at length including difference between FULL code, DNR-CCA and DNR-CC status. Following discussions about the differences in these status, patient requested full CODE STATUS. Advanced Care Planning Face to Face Time: 15 minutes This note was generated with [employer] dictation software. It may contain incorrect words, spelling, and punctuation that were not noted in checking the note before signing. Code Visit Inpatient E&M: 12745 Init Hosp L3 Procedures: 93685 Advncd Care Plan 30 Min
--- NOTE | 2019-12-29 08:19 | ECHOD_ITS ---
Reason For Study: SOB Procedure This was a 2D Doppler, Color Flow transthoracic echocardiogram. Exam performed portable in patient room. Left Ventricle Normal size and thickness. Mid cavitary false tendon noted. The estimated ejection fraction is 65 %. Normal diastology for age. No regional wall motion abnormalities noted. Right Ventricle Normal size and thickness. Normal systolic function. Atria Normal left atrium. Normal right atrium. Normal atrial septum. Mitral Valve The mitral valve is structurally normal. No prolapse or stenosis seen. Mild (1+) mitral valve insufficiency. Tricuspid Valve Normal tricuspid valve. Trivial tricuspid valve insufficiency. Right ventricular systolic pressure estimated to be 34 mmHg. Aortic Valve Normal aortic valve. Trisinus/trileaflet aortic valve. Pulmonic Valve Normal pulmonic valve. Great Vessels Normal aortic root. Normal arch. Normal inferior vena cava. Inferior vena cava collapse with sniff. Pericardium/Pleural No pericardial effusion. MMode/2D Measurements & Calculations LVIDd: 3.2 cm IVSd: 1.1 cm Ao root diam: 3.1 cm LVIDs: 2.1 cm LVPWd: 1.0 cm RVDd: 3.0 cm FS: 33.7 % LAV(MOD-sp2): 38.6 ml LA dimension(2D): 3.4 cm Doppler Measurements & Calculations MV E max khurram: 98.1 cm/sec Lat Peak E' Khurram: 11.0 cm/sec Med Peak E' Khurram: 8.6 cm/sec MV A max khurram: 58.2 cm/sec E/E' lat: 8.9 E/E' med: 11.4 MV E/A: 1.7 Ao V2 max: 104.2 cm/sec LV V1 max: 84.1 cm/sec PA V2 max: 86.3 cm/sec Ao max P.3 mmHg LV V1 max P.8 mmHg TR max khurram: 269.0 cm/sec TR max P.1 mmHg Interpretation Summary The estimated ejection fraction is 65 %. Normal diastology for age. Mild (1+) mitral valve insufficiency. Trivial tricuspid valve insufficiency. Right ventricular systolic pressure estimated to be 34 mmHg. There is no comparison study available. Ordering Physician: Kade Castellon Referring Physician: Antonette Jeffrey Performed By: Alba Hare RDCS, RVT
[2019-12-29] MEDS: Enoxaparin 40 MG/0.4 ML Syringe SC (11:16)
--- NOTE | 2019-12-29 15:59 | PN_ITS ---
Reason for Visit: COPD exacerbation Subjective: still short of breath. states that he wants to sleep. says he has not slept in 3-6 days. Vitals/I&O's: Vital Signs Temp Pulse Resp BP Pulse Ox 37.1 C 109 H 22 H 141/88 H 97 12/29/19 15:11 12/29/19 15:23 12/29/19 15:23 12/29/19 15:11 12/29/19 15:11 Oxygen Flow Rate (L/min) 2 Oxygen Delivery Method Nasal Cannula Weight: 48.489 kg Body Mass Index (BMI) 14.1 Intake and Output for Last 24 Hours 12/27/19 12/28/19 12/29/19 23:59 23:59 23:59 Intake Total 3177.5 / 3177.5 2920.00 / 2920.00 845 / 845 Output Total 275 / 275 Balance 2902.5 / 2902.5 2920.00 / 2920.00 845 / 845 General: Alert, No apparent distress HEENT: Atraumatic, Normocephalic Oral: Moist Mucosa, No Gingival or Mucosal Lesions/ Ulcerations Neck: No Nodes, Trachea Midline Lungs: Diminished, Wheezes Cardiovascular: Regular rate, Regular Rhythm, Normal S1, Normal S2, No murmurs Abdomen: Bowel Sounds Present, Soft, Non Tender, Non-Distended, No Hepato- splenomegaly Extremities: No edema, No Calf Tenderness Skin: No rashes, No breakdown Musculoskeletal: Cachexia, Muscle Wasting Psych/Mental Status: Anxious Microbiology Past 72 Hours 12/28/19 11:05 Sputum, Expectorated/Coughed Gram Stain - Final 12/28/19 11:05 Sputum, Expectorated/Coughed Respiratory Culture - Preliminary Alpha Hemolytic Streptococcus 12/25/19 15:15 Blood Culture (Wb) #2 - Anticubital Right Blood Culture - Preliminary No growth in 48 hours. 12/25/19 14:45 Blood Culture (Wb) - Anticubital Left Blood Culture - Preliminary No growth in 48 hours. Current Medications Acetaminophen (Tylenol) 650 mg PO Q6H PRN PRN PRN Reason: Pain Score 1-10/Temp > 100.7 F Albuterol Sulfate (Ventolin Aerosols) 2.5 mg INHALATION Q2H PRN PRN PRN Reason: SHORTNESS OF BREATH Albuterol/Ipratropium (Duoneb) 3 ml INHALATION Q4HWA.RT [facility] Last Admin: 12/29/19 15:23 Dose: 3 ml Documented by: Enoxaparin Sodium (Lovenox) 40 mg SC DAILY [facility] Last Admin: 12/29/19 11:16 Dose: 40 mg Documented by: Sodium Chloride () 500 mls @ 999 mls/hr IV .Q31M ONE Last Infusion: 12/25/19 16:03 Dose: Infused Documented by: Sodium Chloride () 250 mls @ 15 mls/hr IV .[id number] PRN PRN Reason: Saline Flush Sodium Chloride () 250 mls @ 15 mls/hr IV .[id number] PRN PRN Reason: Additional IVPB Infusion Azithromycin 500 mg/ Dextrose 255 mls @ 250 mls/hr IV Q24 [facility] Last Infusion: 12/29/19 12:14 Dose: Infused Documented by: Ceftriaxone Sodium 2 gm/ (Sodium Chloride) 50 mls @ 100 mls/hr IV Q24 [facility] Last Infusion: 12/29/19 13:17 Dose: Infused Documented by: Melatonin (Melatonin) 10 mg PO QHS [facility] Methylprednisolone (Solu-Medrol) 40 mg IV Q8 [facility] Last Admin: 12/29/19 15:09 Dose: 40 mg Documented by: Ondansetron HCl (Zofran) 4 mg IV Q8H PRN PRN PRN Reason: NAUSEA/VOMITING Sodium Chloride () 10 - 40 ml IV UD PRN PRN Reason: SALINE FLUSH Last Admin: 12/29/19 15:09 Dose: 10 ml Documented by: STROKE Vital Signs/Narrative: Vital Signs Temp Pulse Resp BP Pulse Ox 12/29/19 15:23 109 H 22 H 12/29/19 15:11 37.1 C 100 20 H 141/88 H 97 Medical Necessity - Tobacco Use Smoking Status: Former smoker Tobacco Use: Cigarettes Assessment/Plan All Active Problems (Last Reviewed 11/05/19 @ 12:[address] Kade Castellon DO) Hypoxia (Acute) Collapse of lung (Resolved) COPD exacerbation (Acute) 1. AECOPD * ongoing, no significant improvement * continue BDs, methylpred * stage IV by GOLD criteria * consult pulm given any noticeable improvement. * unclear if patient can be improved to any significant degree. * seen by pulmonology, who ordered viral panel and an echo * pt agreed to palliative care consult 2. pneumonia * suspected pneumococcal * continue azithromycin and CTX * pulm toilet * urinary antigens negative for strep and legionella. * I wound not categorize this patient as sepsis as I feel his tachycardia and tachypnea are attributable to #1. * sputum culture + for alpha hemolytic strep 3. Acute hypoxic respiratory insuffiency * 2/2 above * wean oxygen as tolerated 4. insomnia * i doubt patient's claim of no sleep in 3-6 days * agree with melatonin * pt frustrated that he will not get sleep aid now, 5. VTE prophylaxis: moderate risk. LMWH Code Visit Inpatient E&M: 04897 Subs Hosp L2
--- NOTE | 2019-12-29 17:41 | NURSING ---
Pt's sister called this nurse and spoke with me RE: pt talking confused. States he told his sister that there was a little dude in his room eating his food. Patients sister said that their mother got like this once when she needed a bipap. Also Sister passed along that roomate of patient is in the hospital for Meningitis. Not sure what kind of meningitis. He gets it every year per Mr. Demarco sister. Dr. Nelson here on the unit and informed of all the above. New order for ABG's.
--- NOTE | 2019-12-29 18:13 | CPS ---
Addendum entered and electronically signed by Willa Dexter 12/29/19 18:14: Original Note: VENOUS BLOOD GAS OBTAINED CRITICAL PAO2 VALUE OF 31, PATIENT REFUSED RESTICK TO OBTAIN ARTERIAL SAMPLE.
[2019-12-29 18:16] LABS: Blood Gas Specimen Type VEN; O2 Delivery Device Nasal Can; SITE R Radial; Time Given 1805; VBG BASE EXCESS 15 mmol/L (-1.0-3.5); VBG Bicarbonate 37 mmol/L (22-26); VBG Oxygen Content 38 mmol/L (23-33); VBG PO2 31 mmHg (25-40); VBG SO2 70 % (50-70); VBG pH 7.59 (7.32-7.42)
[2019-12-29] MEDS: MELATONIN 10 MG TABLET PO (19:38)
[2019-12-30] VITALS (11 sets, daily range): BP systolic 119–154; BP diastolic 65–88; PULSE 66–123; RESP 16–24; TEMP 36.4–37.3; O2SAT 86–98
[2019-12-30] MEDS: 0.9% Saline Lock 10 ML Syringe IV ×4 (06:52→21:00)
[2019-12-30] MEDS: Ipratropium/Albuterol Sulfate 3 ML AMPUL.NEB INHALATION ×4 (07:00→19:17)
--- NOTE | 2019-12-30 09:10 | PN_ITS ---
Reason for Visit: Follow-up pneumonia with COPD exacerbation Subjective: Patient is a 54-year-old gentleman with past medical history single for chronic hypoxic respiratory failure secondary to COPD on baseline home O2 who presented with shortness of breath. Diagnosis of streptococcal pneumonia with superimposed COPD made admitted to regular nursing floor where patient has since been managed Patient seen still remains significantly dyspneic at rest. As part of his management 2D echo viral panel and consultation was placed to pulmonary medicine in view of his rather slow progress. Objective: GENERAL: cooperative HEENT: Atraumatic; EYES; Anicteric, Normal Conjunctiva NECK; supple, normal thyroid, RESPIRATORY: Diminished to auscultation CARDIOVASCULAR: Regular S1 S2, GI: soft, normoactive bowel sounds, : No Renal angle tenderness; EXTREMITIES: No edema, no clubbing, MUSCULOSKELETAL: no muscle waisting NEURO: Awake; no lateralizing signs. SKIN: No Rash PSYCH; Flat affect Vitals/I&O's: Vital Signs Temp Pulse Resp BP Pulse Ox 97.6 F L 101 H 22 H 154/88 H 92 12/30/19 03:21 12/30/19 07:00 12/30/19 07:00 12/30/19 03:21 12/30/19 07:03 Oxygen Flow Rate (L/min) 2 Oxygen Delivery Method Nasal Cannula Weight: 48.489 kg Body Mass Index (BMI) 14.1 Intake and Output for Last 24 Hours 12/28/19 12/29/19 12/30/19 23:59 23:59 23:59 Intake Total 2920.00 / 2920.00 1085 / 1085 680 / 680 Balance 2920.00 / 2920.00 1085 / 1085 680 / 680 Microbiology Past 72 Hours 12/28/19 11:05 Sputum, Expectorated/Coughed Gram Stain - Final 12/28/19 11:05 Sputum, Expectorated/Coughed Respiratory Culture - Preliminary Alpha Hemolytic Streptococcus 12/25/19 15:15 Blood Culture (Wb) #2 - Anticubital Right Blood Culture - Preliminary No growth in 48 hours. 12/25/19 14:45 Blood Culture (Wb) - Anticubital Left Blood Culture - Preliminary No growth in 48 hours. Laboratory Results 12/29/19 18:08: Specimen Type BRUNO, Sample Site R Radial, VBG pH 7.59 H, VBG pO2 31, VBG O2 Sat (Calc) 70, VBG O2 Content 38 H, VBG Base Excess 15 H, POC Mix VBG pCO2 Pt Tmp 39.0 L, O2 Delivery Device Nasal Can, Liter Flow 2.0, Blood Gas Notified Whom CHATO MARTELL, Blood Gas Notified Time 1805 12/29/19 18:08: Specimen Type Cancelled, Sample Site Cancelled, O2 % Cancelled, VBG pH Cancelled, VBG pH (Temp Correct) Cancelled, VBG pCO2 (Temp Corrct Cancelled, VBG pO2 Cancelled, VBG O2 Sat (Calc) Cancelled, VBG O2 Content Cancelled, VBG Base Excess Cancelled, POC Mix VBG pCO2 Pt Tmp Cancelled, Respiration Rate Cancelled, O2 Delivery Device Cancelled, Liter Flow Cancelled, Minute Volume Cancelled, Tidal Volume Cancelled, POC PEEP Cancelled, POC Pressure Suppt Cancelled, EPAP Cancelled, IPAP Cancelled, Blood Gas Notified Whom Cancelled, Blood Gas Notified Time Cancelled Current Medications Acetaminophen (Tylenol) 650 mg PO Q6H PRN PRN PRN Reason: Pain Score 1-10/Temp > 100.7 F Albuterol Sulfate (Ventolin Aerosols) 2.5 mg INHALATION Q2H PRN PRN PRN Reason: SHORTNESS OF BREATH Albuterol/Ipratropium (Duoneb) 3 ml INHALATION Q4HWA.RT [facility] Last Admin: 12/30/19 07:00 Dose: 3 ml Documented by: Enoxaparin Sodium (Lovenox) 40 mg SC DAILY [facility] Last Admin: 12/29/19 11:16 Dose: 40 mg Documented by: Sodium Chloride () 500 mls @ 999 mls/hr IV .Q31M ONE Last Infusion: 12/25/19 16:03 Dose: Infused Documented by: Sodium Chloride () 250 mls @ 15 mls/hr IV .[id number] PRN PRN Reason: Saline Flush Sodium Chloride () 250 mls @ 15 mls/hr IV .[id number] PRN PRN Reason: Additional IVPB Infusion Azithromycin 500 mg/ Dextrose 255 mls @ 250 mls/hr IV Q24 [facility] Last Infusion: 12/29/19 12:14 Dose: Infused Documented by: Ceftriaxone Sodium 2 gm/ (Sodium Chloride) 50 mls @ 100 mls/hr IV Q24 [facility] Last Infusion: 12/29/19 13:17 Dose: Infused Documented by: Melatonin (Melatonin) 10 mg PO QHS MARIA R Last Admin: 12/29/19 19:38 Dose: 10 mg Documented by: Methylprednisolone (Solu-Medrol) 40 mg IV Q8 [facility] Last Admin: 12/30/19 06:52 Dose: 40 mg Documented by: Ondansetron HCl (Zofran) 4 mg IV Q8H PRN PRN PRN Reason: NAUSEA/VOMITING Sodium Chloride () 10 - 40 ml IV UD PRN PRN Reason: SALINE FLUSH Last Admin: 12/30/19 06:52 Dose: 10 ml Documented by: STROKE Vital Signs/Narrative: Vital Signs Pulse Resp Pulse Ox 12/30/19 07:03 92 12/30/19 07:00 101 H 22 H 86 Medical Necessity - Tobacco Use Smoking Status: Former smoker Tobacco Use: Cigarettes Assessment/Plan All Active Problems (Last Reviewed 11/05/19 @ 12:[address] Kade Castellon, DO) Hypoxia (Acute) Collapse of lung (Resolved) COPD exacerbation (Acute) Patient is a 54-year-old gentleman with past medical history single for chronic hypoxic respiratory failure secondary to COPD on baseline home O2 who presented with shortness of breath. Diagnosis of streptococcal pneumonia with superimposed COPD made admitted to regular nursing floor where patient has since been managed 1. COPD with acute exacerbation Patient seen still remains significantly dyspneic at rest. As part of his management 2D echo viral panel and consultation was placed to pulmonary medicine in view of his rather slow progress. Did continue with patient steroids in addition to antibiotics as well as bronchodilator treatment 2. Streptococcal pneumonia ?Managed with Rocephin in addition to supplemental oxygen 3. Acute on chronic hypoxic respiratory failure secondary to combination of COPD with acute exacerbation as well as pneumonia management as described above 4. Severe protein calorie malnutrition ?As evidenced by low BMI of 14, hypoalbuminemia as well as decreased energy leve l consultation placed to dietitian 5. DVT prophylaxis ?Enoxaparin Code Visit Inpatient E&M: 94041 Subs Hosp L2
[2019-12-30] MEDS: Enoxaparin 40 MG/0.4 ML Syringe SC (10:19)
--- NOTE | 2019-12-30 11:24 | CPS ---
Reswabbed pt for Respiratory Panel d/t lab saying 1st one had an interfering substance.
--- NOTE | 2019-12-30 12:05 | PCM.PN.PUL ---
Subjective: The patient was seen and examined at the bedside this morning. Events from the last 24 hours have been reviewed. The patient is currently afebrile, hemodynamically stable and maintaining appropriate oxygen saturations on 2 L/min via nasal cannula. Objective: The patient's most recent lab work, culture data and imaging studies have all been personally reviewed. Surface echocardiogram revealed normal LV size and function with an ejection fraction of 65%. Right ventricular systolic pressure was estimated to be 34 mmHg. Respiratory viral panel is pending. - Physical Exam Vitals/I&O's: Vital Signs Temp Pulse Resp BP Pulse Ox 97.6 F L 84 20 H 147/84 H 93 12/30/19 09:20 12/30/19 10:51 12/30/19 10:51 12/30/19 09:20 12/30/19 10:51 Oxygen Flow Rate (L/min) 2 Oxygen Delivery Method Nasal Cannula Weight: 106 lb 14.399 oz Body Mass Index (BMI) 14.1 Intake and Output for Last 24 Hours 12/28/19 12/29/19 12/30/19 23:59 23:59 23:59 Intake Total 2920.00 / 2920.00 1085 / 1085 1585 / 1585 Balance 2920.00 / 2920.00 1085 / 1085 1585 / 1585 General: Alert, No apparent distress HEENT: Atraumatic, Normocephalic Oral: No Gingival or Mucosal Lesions/ Ulcerations Neck: Supple, No Nodes, Trachea Midline Lungs: No rhonchi, No wheeze, No rales, Diminished Cardiovascular: Regular rate, Regular Rhythm, Normal S1, Normal S2, No murmurs Abdomen: Bowel Sounds Present, Soft, Non Tender Extremities: No clubbing, No cyanosis, No edema Skin: No breakdown Musculoskeletal: No Tenderness to Palpation of Joints or Extremities Lymphatic: No Cervical, Supraclavicular, or Inguinal Adenopathy Neurological: Cranial nerves II-XII grossly intact Psych/Mental Status: Flat Affect Labs (Last 48 Hours) 12/29/19 12/29/19 18:08 18:08 Specimen Type BRUNO Cancelled Sample Site R Radial Cancelled O2 % Cancelled VBG pH 7.59 H Cancelled VBG pH (Temp Correct) Cancelled VBG pCO2 (Temp Corrct Cancelled VBG pO2 31 Cancelled VBG O2 Sat (Calc) 70 Cancelled VBG O2 Content 38 H Cancelled VBG Base Excess 15 H Cancelled POC Mix VBG pCO2 Pt Tmp 39.0 L Cancelled Respiration Rate Cancelled O2 Delivery Device Nasal Can Cancelled Liter Flow 2.0 Cancelled Minute Volume Cancelled Tidal Volume Cancelled POC PEEP Cancelled POC Pressure Suppt Cancelled EPAP Cancelled IPAP Cancelled Blood Gas Notified Whom [facility] Cancelled Blood Gas Notified Time 1805 Cancelled Microbiology 12/28/19 11:05 Sputum, Expectorated/Coughed Gram Stain - Final 12/28/19 11:05 Sputum, Expectorated/Coughed Respiratory Culture - Final Mixed normal respiratory jad. No Streptococcus pneumoniae, beta-hemolytic Streptococcus or Staphylococcus aureus isolated. Clinical Impression(s) from Imaging Studies Chest X-Ray 12/25/19 14:25 IMPRESSION: Hyperinflation. Increased markings in the right perihilar and right infrahilar region suggestive of early infiltrate. Follow-up is recommended. Electronically Signed: Bryan Dominguez, at 15:16 EST , Service support , Current Medications Acetaminophen (Tylenol) 650 mg PO Q6H PRN PRN PRN Reason: Pain Score 1-10/Temp > 100.7 F Albuterol Sulfate (Ventolin Aerosols) 2.5 mg INHALATION Q2H PRN PRN PRN Reason: SHORTNESS OF BREATH Albuterol/Ipratropium (Duoneb) 3 ml INHALATION Q4HWA.RT [facility] Last Admin: 12/30/19 10:51 Dose: 3 ml Documented by: Enoxaparin Sodium (Lovenox) 40 mg SC DAILY [facility] Last Admin: 12/30/19 10:19 Dose: 40 mg Documented by: Sodium Chloride () 500 mls @ 999 mls/hr IV .Q31M ONE Last Infusion: 12/25/19 16:03 Dose: Infused Documented by: Sodium Chloride () 250 mls @ 15 mls/hr IV .[id number] PRN PRN Reason: Saline Flush Last Infusion: 12/30/19 11:06 Dose: 0 mls/hr Documented by: Sodium Chloride () 250 mls @ 15 mls/hr IV .[id number] PRN PRN Reason: Additional IVPB Infusion Azithromycin 500 mg/ Dextrose 255 mls @ 250 mls/hr IV Q24 [facility] Last Admin: 12/30/19 11:06 Dose: 250 mls/hr Documented by: Ceftriaxone Sodium 2 gm/ (Sodium Chloride) 50 mls @ 100 mls/hr IV Q24 [facility] Last Infusion: 12/30/19 10:46 Dose: Infused Documented by: Melatonin (Melatonin) 10 mg PO QHS [facility] Last Admin: 12/29/19 19:38 Dose: 10 mg Documented by: Methylprednisolone (Solu-Medrol) 40 mg IV Q8 [facility] Last Admin: 12/30/19 06:52 Dose: 40 mg Documented by: Ondansetron HCl (Zofran) 4 mg IV Q8H PRN PRN PRN Reason: NAUSEA/VOMITING Sodium Chloride () 10 - 40 ml IV UD PRN PRN Reason: SALINE FLUSH Last Admin: 12/30/19 10:16 Dose: 10 ml Documented by: Medical Necessity - Tobacco Use Smoking Status: Former smoker Tobacco Use: Cigarettes Assessment/Plan All Active Problems (Last Reviewed 11/05/19 @ 12:[address] Kade Castellon, DO) Hypoxia (Acute) Collapse of lung (Resolved) COPD exacerbation (Acute) RECOMMENDATIONS: 1. Await respiratory viral panel results. 2. Continue antibiotics, bronchodilators and steroids. 3. Wean supplemental oxygen as tolerated. 4. Encourage incentive spirometer use. IMPRESSIONS: 1. Acute hypoxemic respiratory failure secondary to COPD with exacerbation Concern for community-acquired pneumonia as precipitating etiology. However, the patient is still quite symptomatic despite treatment with antibiotics, steroids and bronchodilators. Respiratory viral panel is pending. Surface echocardiogram did not reveal evidence of diastolic dysfunction or pulmonary hypertension. For now, we will plan to continue steroids, bronchodilators and antimicrobials as ordered. Agree with palliative care referral given severity of lung disease. 2. CODE status: Full CODE STATUS following discussion with patient. This note was generated with [employer] software. It may contain incorrect words, spelling, and punctuation that were not noted in checking the note before signing. Code Visit Inpatient E&M: 62101 Subs Hosp L2
--- NOTE | 2019-12-30 12:05 | CASEMGMT ---
Social Work Note SW received consult for Palliative Care. SW reviewed notes, pt is agreeable to Palliative Care consult. Pt is self-pay, makes too much for medicaid, and would need to be on disability for two years for Medicare. JASWINDER placed a call to [facility] and spoke with Nicole in admissions. JASWINDER asked Nicole about how Palliative works when pt's are self-pay. Nicole states they don't do a sliding scale but JASWINDER Willis at [facility] can assess pt for financial. Nicole states she is not sure how much pt would need to pay for can review referral and have JASWINDER Willis complete financial assessment. JASWINDER completed Palliative Care Screening tool, pt scored a 5. JASWINDER faxed referral to [facility]. SW in to speak with pt regarding Palliative Care. Pt agreeable to Palliative referral. JASWINDER explained that Palliative is typically paid for through insurance and since pt doesn't have insurance, pt may be financially responsible. JASWINDER explained to pt that referral was made and Palliative will be calling pt to speak with pt regarding Palliative and completing financial assessment with pt. Pt states understanding. Patti Sarmiento HOUSE SUPERINTENDENT, COLLEGE PRESIDENT
[2019-12-30] MEDS: MELATONIN 10 MG TABLET PO (21:00)
[2019-12-30] MEDS: Albuterol 2.5 MG/3 ML VIAL.NEB. INHALATION (21:23)
[2019-12-31] VITALS (7 sets, daily range): BP systolic 122–133; BP diastolic 77–88; PULSE 90–110; RESP 18–24; TEMP 36.7–37; O2SAT 96–100
[2019-12-31] MEDS: 0.9% Saline Lock 10 ML Syringe IV ×2 (05:34→14:22)
[2019-12-31] MEDS: Ipratropium/Albuterol Sulfate 3 ML AMPUL.NEB INHALATION ×3 (06:56→14:11)
--- NOTE | 2019-12-31 08:10 | DCINST_ITS ---
You will use the following diet at home:: No restrictions Discharge Activity: Return to Normal Activity Allergies/Adverse Reactions: Allergies No Known Allergies Allergy (Verified 12/25/19 14:07) Medications to take at Discharge Albuterol Aerosols [Ventolin Aerosols] 2.5 mg INHALATION Q2H PRN PRN #1 box 03/28/19 Albuterol Sulfate [Albuterol Sulfate Hfa] 1 - 2 puff INHALATION Q4H PRN PRN #1 inhaler 12/31/19 Cefdinir [Omnicef [equiv]] 300 mg PO Q12H #10 cap 12/31/19 Fluticasone/Umeclidin/Vilanter [Trelegy Ellipta 100-62.5-25] 1 inh INHALATION DAILY #1 unit 12/31/19 Prednisone 10 mg PO UD #30 tab 12/31/19 The following prescriptions were given: Albuterol Sulfate [Albuterol Sulfate Hfa] 1 - 2 puff INHALATION Q4H PRN PRN #1 inhaler PRN Reason: shortness of breath or wheezing Transmission Status: Pending to [facility] [place] Cefdinir [Omnicef [equiv]] 300 mg PO Q12H #10 cap Transmission Status: Pending to [facility] Prednisone 10 mg PO UD #30 tab Prescription Printed Fluticasone/Umeclidin/Vilanter [Trelegy Ellipta 100-62.5-25] 1 inh INHALATION DAILY #1 unit Transmission Status: Pending to [facility] Primary Care Physician: Antonette Jeffrey NP-C [Primary Care Provider] - Please follow up with your Primary Care Physician in: in 1 week Test Results: Test results from this visit will be discussed in further detail at your follow- up appointment, if applicable. Please Follow Up With: Kade Castellon DO When: 2-3 weeks Proposed Discharge Date: 12/31/19
--- NOTE | 2019-12-31 08:11 | PCM.DC.SUM ---
Discharge Date and Diagnosis Date of Admission: 12/25/19 Date of Discharge: 12/31/19 - Primary Discharge Diagnosis Acute COPD exacerbation Streptococcal pneumonia - Secondary Discharge Diagnosis Chronic Problems (Last Reviewed 11/05/19 @ 12:[address] Kade Castellon, DO) Respiratory failure with hypoxia (Chronic) Stage 4 very severe COPD by GOLD classification (Chronic) FEV1 23% of predicted Tobacco abuse (Chronic) Severe malnutrition (Chronic) Hospital Course and Treatment Operations: None Summary of Care Provided: Patient is a 54-year-old gentleman with past medical history single for chronic hypoxic respiratory failure secondary to COPD on baseline home O2 who presented with shortness of breath. Diagnosis of streptococcal pneumonia with superimposed COPD made admitted to regular nursing floor where patient has since been managed 1. COPD with acute exacerbation Patient seen still remains significantly dyspneic at rest. As part of his management 2D echo viral panel and consultation was placed to pulmonary medicine in view of his rather slow progress. Did continue with patient steroids in addition to antibiotics as well as bronchodilator treatment patient was assessed by palliative care team prior to patient being discharged 2. Streptococcal pneumonia ?Managed with Rocephin in addition to supplemental oxygen 3. Acute on chronic hypoxic respiratory failure secondary to combination of COPD with acute exacerbation as well as pneumonia management as described above 4. Severe protein calorie malnutrition ?As evidenced by low BMI of 14, hypoalbuminemia as well as decreased energy level consultation placed to dietitian 5. DVT prophylaxis ?Enoxaparin Objective: GENERAL: cooperative HEENT: Atraumatic; EYES; Anicteric, Normal Conjunctiva NECK; supple, normal thyroid, RESPIRATORY: Diminished to auscultation NEURO: Awake; no lateralizing signs. SKIN: No Rash PSYCH; Flat affect - Physical Exam Vitals/I&O's: Vital Signs Temp Pulse Resp BP Pulse Ox 98.1 F 109 H 18 123/82 H 100 12/31/19 02:45 12/31/19 02:45 12/31/19 02:45 12/31/19 02:45 12/31/19 02:45 Oxygen Flow Rate (L/min) 3 Oxygen Delivery Method Nasal Cannula Weight: 48.489 kg Body Mass Index (BMI) 14.1 Intake and Output for Last 24 Hours 12/29/19 12/30/19 12/31/19 23:59 23:59 23:59 Intake Total 1085 / 1085 2972 / 2972 240 / 240 Balance 1085 / 1085 2972 / 2972 240 / 240 Microbiology Past 72 Hours 12/30/19 10:53 Mucosa - Nasopharyngeal Respiratory Panel (PCR) - Final 12/25/19 14:45 Blood Culture (Wb) - Anticubital Left Blood Culture - Final No growth in 5 days. 12/25/19 15:15 Blood Culture (Wb) #2 - Anticubital Right Blood Culture - Final No growth in 5 days. 12/28/19 11:05 Sputum, Expectorated/Coughed Gram Stain - Final 12/28/19 11:05 Sputum, Expectorated/Coughed Respiratory Culture - Final Mixed normal respiratory jad. No Streptococcus pneumoniae, beta-hemolytic Streptococcus or Staphylococcus aureus isolated. Current Medications Acetaminophen (Tylenol) 650 mg PO Q6H PRN PRN PRN Reason: Pain Score 1-10/Temp > 100.7 F Albuterol Sulfate (Ventolin Aerosols) 2.5 mg INHALATION Q2H PRN PRN PRN Reason: SHORTNESS OF BREATH Last Admin: 12/30/19 21:23 Dose: 2.5 mg Documented by: Albuterol/Ipratropium (Duoneb) 3 ml INHALATION Q4HWA.RT [facility] Last Admin: 12/31/19 06:56 Dose: 3 ml Documented by: Enoxaparin Sodium (Lovenox) 40 mg SC DAILY [facility] Last Admin: 12/30/19 10:19 Dose: 40 mg Documented by: Sodium Chloride () 500 mls @ 999 mls/hr IV .Q31M ONE Last Infusion: 12/25/19 16:03 Dose: Infused Documented by: Sodium Chloride () 250 mls @ 15 mls/hr IV .[id number] PRN PRN Reason: Saline Flush Last Infusion: 12/30/19 20:56 Dose: 0 mls/hr Documented by: Sodium Chloride () 250 mls @ 15 mls/hr IV .[id number] PRN PRN Reason: Additional IVPB Infusion Azithromycin 500 mg/ Dextrose 255 mls @ 250 mls/hr IV Q24 [facility] Last Infusion: 12/30/19 12:08 Dose: Infused Documented by: Ceftriaxone Sodium 2 gm/ (Sodium Chloride) 50 mls @ 100 mls/hr IV Q24 [facility] Last Infusion: 12/30/19 10:46 Dose: Infused Documented by: Melatonin (Melatonin) 10 mg PO QHS [facility] Last Admin: 12/30/19 21:00 Dose: 10 mg Documented by: Methylprednisolone (Solu-Medrol) 40 mg IV Q8 [facility] Last Admin: 12/31/19 05:34 Dose: 40 mg Documented by: Ondansetron HCl (Zofran) 4 mg IV Q8H PRN PRN PRN Reason: NAUSEA/VOMITING Sodium Chloride () 10 - 40 ml IV UD PRN PRN Reason: SALINE FLUSH Last Admin: 12/31/19 05:34 Dose: 20 ml Documented by: Discharge Diet: No Restrictions Discharge Activity: Return to Normal Activity Home Medications: Medications to take at Discharge Albuterol Aerosols [Ventolin Aerosols] 2.5 mg INHALATION Q2H PRN PRN #1 box 03/28/19 Albuterol Sulfate [Albuterol Sulfate Hfa] 1 - 2 puff INHALATION Q4H PRN PRN #1 inhaler 12/31/19 Cefdinir [Omnicef [equiv]] 300 mg PO Q12H #10 cap 12/31/19 Fluticasone/Umeclidin/Vilanter [Trelegy Ellipta 100-62.5-25] 1 inh INHALATION DAILY #1 unit 12/31/19 Prednisone 10 mg PO UD #30 tab 12/31/19 Following Prescrptions Were Given to Patient: Albuterol Sulfate [Albuterol Sulfate Hfa] 1 - 2 puff INHALATION Q4H PRN PRN #1 inhaler PRN Reason: shortness of breath or wheezing Transmission Status: Received by [facility] [place] Cefdinir [Omnicef [equiv]] 300 mg PO Q12H #10 cap Transmission Status: Received by [facility] Prednisone 10 mg PO UD #30 tab Prescription Printed Fluticasone/Umeclidin/Vilanter [Trelegy Ellipta 100-62.5-25] 1 inh INHALATION DAILY #1 unit Transmission Status: Received by [facility] Primary Care Physician: Antonette Jeffrey NP-C [Primary Care Provider] - Please follow up with your Primary Care Physician in: in 1 week Please Follow Up With: Kade Castellon DO When: 2-3 weeks Disposition: Home Minutes spent on discharge:: 40 Patient Condition:: Stable Medical Necessity - Tobacco Use Smoking Status: Former smoker Tobacco Use: Cigarettes Meaningful Use Info Meaningful Use Diagnoses (Choose all that apply): None applicable Code Visit Inpatient E&M: 29887 Disch Hosp
--- NOTE | 2019-12-31 08:18 | PN_ITS ---
Subjective: The patient was seen and examined at the bedside this morning. Events from the last 24 hours have been reviewed. The patient is currently afebrile, hemodynamically stable and maintaining appropriate oxygen saturations on 3 L/min via nasal cannula. The patient does report subjective improvement in his breathing quality since admission to the hospital. Objective: The patient's most recent lab work, culture data and imaging studies have all been personally reviewed. Surface echocardiogram revealed normal LV size and function with an ejection fraction of 65%. Right ventricular systolic pressure was estimated to be 34 mmHg. Respiratory viral panel was negative. - Physical Exam Vitals/I&O's: Vital Signs Temp Pulse Resp BP Pulse Ox 98.1 F 109 H 18 123/82 H 100 12/31/19 02:45 12/31/19 02:45 12/31/19 02:45 12/31/19 02:45 12/31/19 02:45 Oxygen Flow Rate (L/min) 3 Oxygen Delivery Method Nasal Cannula Weight: 106 lb 14.399 oz Body Mass Index (BMI) 14.1 Intake and Output for Last 24 Hours 12/29/19 12/30/19 12/31/19 23:59 23:59 23:59 Intake Total 1085 / 1085 2972 / 2972 240 / 240 Balance 1085 / 1085 2972 / 2972 240 / 240 General: Alert, Cooperative, No apparent distress HEENT: Atraumatic, PERRLA, Normocephalic Oral: No Gingival or Mucosal Lesions/ Ulcerations Neck: Supple, No Nodes, Trachea Midline Lungs: - - Improved air movement when compared to previous with mild and expiratory wheezes throughout the right hemithorax. Cardiovascular: Regular rate, Regular Rhythm, Normal S1, Normal S2 Abdomen: Bowel Sounds Present, Soft, Non Tender Extremities: No clubbing, No cyanosis, No edema Skin: No breakdown Musculoskeletal: No Tenderness to Palpation of Joints or Extremities Lymphatic: No Cervical, Supraclavicular, or Inguinal Adenopathy Neurological: Cranial nerves II-XII grossly intact, Neuro grossly intact Psych/Mental Status: Alert and oriented to time, place, person, mood and affect Labs (Last 48 Hours) 12/29/19 12/29/19 18:08 18:08 Specimen Type BRUNO Cancelled Sample Site R Radial Cancelled O2 % Cancelled VBG pH 7.59 H Cancelled VBG pH (Temp Correct) Cancelled VBG pCO2 (Temp Corrct Cancelled VBG pO2 31 Cancelled VBG O2 Sat (Calc) 70 Cancelled VBG O2 Content 38 H Cancelled VBG Base Excess 15 H Cancelled POC Mix VBG pCO2 Pt Tmp 39.0 L Cancelled Respiration Rate Cancelled O2 Delivery Device Nasal Can Cancelled Liter Flow 2.0 Cancelled Minute Volume Cancelled Tidal Volume Cancelled POC PEEP Cancelled POC Pressure Suppt Cancelled EPAP Cancelled IPAP Cancelled Blood Gas Notified Whom HOSP MD Cancelled Blood Gas Notified Time 1805 Cancelled Microbiology 12/30/19 10:53 Mucosa - Nasopharyngeal Respiratory Panel (PCR) - Final 12/25/19 14:45 Blood Culture (Wb) - Anticubital Left Blood Culture - Final No growth in 5 days. 12/25/19 15:15 Blood Culture (Wb) #2 - Anticubital Right Blood Culture - Final No growth in 5 days. 12/28/19 11:05 Sputum, Expectorated/Coughed Gram Stain - Final 12/28/19 11:05 Sputum, Expectorated/Coughed Respiratory Culture - Final Mixed normal respiratory jad. No Streptococcus pneumoniae, beta-hemolytic Streptococcus or Staphylococcus aureus isolated. Clinical Impression(s) from Imaging Studies Chest X-Ray 12/25/19 14:25 IMPRESSION: Hyperinflation. Increased markings in the right perihilar and right infrahilar region suggestive of early infiltrate. Follow-up is recommended. Electronically Signed: Bryan Dominguez, at 15:16 EST , Service support , Current Medications Acetaminophen (Tylenol) 650 mg PO Q6H PRN PRN PRN Reason: Pain Score 1-10/Temp > 100.7 F Albuterol Sulfate (Ventolin Aerosols) 2.5 mg INHALATION Q2H PRN PRN PRN Reason: SHORTNESS OF BREATH Last Admin: 12/30/19 21:23 Dose: 2.5 mg Documented by: Albuterol/Ipratropium (Duoneb) 3 ml INHALATION Q4HWA.RT MARIA R Last Admin: 12/31/19 06:56 Dose: 3 ml Documented by: Enoxaparin Sodium (Lovenox) 40 mg SC DAILY [facility] Last Admin: 12/30/19 10:19 Dose: 40 mg Documented by: Sodium Chloride () 500 mls @ 999 mls/hr IV .Q31M ONE Last Infusion: 12/25/19 16:03 Dose: Infused Documented by: Sodium Chloride () 250 mls @ 15 mls/hr IV .[id number] PRN PRN Reason: Saline Flush Last Infusion: 12/30/19 20:56 Dose: 0 mls/hr Documented by: Sodium Chloride () 250 mls @ 15 mls/hr IV .[id number] PRN PRN Reason: Additional IVPB Infusion Azithromycin 500 mg/ Dextrose 255 mls @ 250 mls/hr IV Q24 [facility] Last Infusion: 12/30/19 12:08 Dose: Infused Documented by: Ceftriaxone Sodium 2 gm/ (Sodium Chloride) 50 mls @ 100 mls/hr IV Q24 [facility] Last Infusion: 12/30/19 10:46 Dose: Infused Documented by: Melatonin (Melatonin) 10 mg PO QHS [facility] Last Admin: 12/30/19 21:00 Dose: 10 mg Documented by: Methylprednisolone (Solu-Medrol) 40 mg IV Q8 [facility] Last Admin: 12/31/19 05:34 Dose: 40 mg Documented by: Ondansetron HCl (Zofran) 4 mg IV Q8H PRN PRN PRN Reason: NAUSEA/VOMITING Sodium Chloride () 10 - 40 ml IV UD PRN PRN Reason: SALINE FLUSH Last Admin: 12/31/19 05:34 Dose: 20 ml Documented by: Medical Necessity - Tobacco Use Smoking Status: Former smoker Tobacco Use: Cigarettes Assessment/Plan All Active Problems (Last Reviewed 11/05/19 @ 12:[address] Kade Castellon, DO) Hypoxia (Acute) Collapse of lung (Resolved) COPD exacerbation (Acute) RECOMMENDATIONS: 1. Continue antibiotics with plans to complete a 7-day treatment course. 2. Continue scheduled bronchodilators and steroids. Okay to transition to prednisone, with plans for a taper at discharge. 3. Perform walking oximetry study prior to consideration for discharge home. 4. Please have the patient follow-up in the pulmonary medicine clinic within 2 weeks. IMPRESSIONS: 1. Acute hypoxemic respiratory failure secondary to COPD with exacerbation Concern for community-acquired pneumonia as precipitating etiology. The patient does have baseline advanced age lung disease and has been slow to clinically improve. Respiratory viral panel was negative. Echocardiogram did not reveal any evidence of pulmonary hypertension or diastolic dysfunction. Therefore, I would recommend that we complete a 7-day treatment course of antibiotics. The patient will be continued on bronchodilators. Recommend steroid taper at discharge. Perform walking oximetry study prior to discharge home. The patient should follow-up in the pulmonary medicine clinic within 2 weeks. 2. CODE status: Full CODE STATUS following discussion with patient. This note was generated with [employer] software. It may contain incorrect words, spelling, and punctuation that were not noted in checking the note before signing. Code Visit Inpatient E&M: 30972 Subs Hosp L2
--- NOTE | 2019-12-31 09:01 | CASEMGMT ---
Social Work Note SW placed a call to [facility] and spoke with Nicole in admissions. Nicole states she has tried to get in contact with their SW Alba for financial assessment, but has not been able to do so. Nicole states she or Alba will follow up with pt in the community and pt will have an out of pocket costs it is just not determined yet how much pt will need to pay. Physician updated. SW received another call from Nicole at [facility] stating she just spoke with their JASWINDER Willis and was updated that they should be able to use their [facility] for pt since pt is so close to meeting medicaid requirements. Nicole states the RN visit should be covered but pt would likely have to pay for medications and any other fee's that the fund doesn't cover. Nicole states she will call pt today to determine if pt would like to meet with Nicole while at [facility] or in the community. Patti Sarmiento DISTRIBUTION CENTER MANAGER, CADMIUM LIQUOR MAKER
--- NOTE | 2019-12-31 10:20 | CASEMGMT ---
Addendum entered by Patti Sarmiento 12/31/19 11:38: Nicole with [facility] updated this worker that pt denied Palliative Care at this time. Original Note: Social Work Note SW received call from Nicole at [facility] stating she has left pt a voicemail but pt hasn't returned her phone call. Nicole asked if she can just come to [facility] to meet with pt today. SW spoke with RN. RN states Palliative is able to come speak with pt. Nicole updated, states she will be over to [facility] soon to speak with pt regarding Palliative. Patti Sarmiento AREA FORESTER, BLOCK BREAKER OPERATOR
--- NOTE | 2020-01-01 18:01 | CASEMGMT ---
Case Management DC F/u Call: DC Date: 12/31/2019 DC Diagnosis: Acute COPD exacerbation, Streptococcal pneumonia DC Disposition: Home Lace/Strata: 10/08 Called patient listed cell phone on .demographics, no answer, VM does not verify identity of patient and therefore no VM left. Fabian Dubose RNCM
== END 2019-12-31 14:55 | disposition home or self-care (01) | DRG 193 ==
LOC: ED 15:12 → MS3 16:14
PROVIDERS: Admitting Provider Family Medicine; Emergency Provider Emergency Medicine; PCP Nurse Practitioner Family; Visit Provider Internal Medicine
DX: J15.4 Pneumonia due to other streptococci (principal); E43 Unspecified severe protein-calorie malnutrition; J96.21 Acute and chronic respiratory failure with hypoxia; J44.1 Chronic obstructive pulmonary disease with (acute) exacerbation; Z68.1 Body mass index [BMI] 19.9 or less, adult; J44.0 Chronic obstructive pulmonary disease with (acute) lower respiratory infection; Z23 Encounter for immunization; Z99.81 Dependence on supplemental oxygen; Z72.0 Tobacco use
CPT/HCPCS: 36415; 36600; 71046; 80048; 82803; 83605; 84484; 85025; 87040; 87070; 87205; 87449; 87633; 93005; 93306; 94640; 94667; 94668; 97802; 99285; J7030; J7050; 90686; A4216; J0696

== ENCOUNTER 2021-01-04 09:51 | Inpatient (IN) | payer SELFPAY ==
[2019-12-25 16:34] VITALS: BMI 14.1
[2021-01-04] VITALS (20 sets, daily range): BP systolic 103–119; BP diastolic 67–79; PULSE 27–106; RESP 12–95; TEMP -17.7–36.8; O2SAT 3–100; BMI 16.0; BMI 16.1
--- NOTE | 2021-01-04 10:04 | EKG12_ITS ---
Test Reason : Blood Pressure : / mmHG Vent. Rate : 081 BPM Atrial Rate : 081 BPM P-R Int : 118 ms QRS Dur : 078 ms QT Int : 334 ms P-R-T Axes : -03 078 078 degrees QTc Int : 387 ms Normal sinus rhythm Early repolarization with pericarditis Normal ECG Confirmed by ESTEBAN MARTELL, DT ([id number]), marketing editor FIORELLA KIM ([id number]) on 01/05/2021 10:41:36 AM Referred By: OSIRIS Confirmed By:TD ORELLANA MD
--- NOTE | 2021-01-04 10:06 | ED.VIS.GEN ---
History of Present Illness Chief Complaint: Shortness of Breath Informant: Patient Narrative: 55-year-old male with history of end-stage COPD currently awaiting ability to get a lung transplant however he states he has to quit smoking first. Patient states he is currently down to 1 cigarette a day. Patient relates that he has been more short of breath over the last 2 weeks. He wears 1.5 L of oxygen at baseline and states he had to turn it up to 2.5 L. Patient states he is not having any chest pain but does have shortness of breath. He does not have change in taste or smell, rhinorrhea, sore throat but does admit to body aches. Patient states that his last COPD exacerbation which took him to the hospital was about a year ago. He states he is never been intubated. - Past Medical History (1) COPD exacerbation Status: Chronic (2) Stage 4 very severe COPD by GOLD classification Status: Chronic Comment: FEV1 23% of predicted (3) Tobacco abuse Status: Resolved Past Medical History - Allergies and Home Meds Allergies/Adverse Reactions: Allergies No Known Allergies Allergy (Verified 01/04/21 10:08) Prior records reviewed: Yes Past Medical History: - - COPD Surgical History: noncontributory, - - Hx PTX s/p chest tube placement. Lives: Alone Smoking Status: Current every day smoker Alcohol: None Drugs: None - Family History Maternal Family History: Family History (Last Reviewed 04/14/20 @ 07:23 by Devi Londono) Father COPD (chronic obstructive pulmonary disease) Mother Heart disease COPD (chronic obstructive pulmonary disease) Family History: Reports: - - Patient with a maternal and paternal family history of chronic lung disease, chronic COPD, both tobacco users. Paternal Family History: Family History (Last Reviewed 04/14/20 @ 07:23 by Devi Londono) Father COPD (chronic obstructive pulmonary disease) Mother Heart disease COPD (chronic obstructive pulmonary disease) Family History: Reports: - - Patient with a maternal and paternal family history of chronic lung disease, chronic COPD, both tobacco users. Review of Systems General: Denies: Chills, Fever Eyes: Denies: Visual changes - bilaterally, Diplopia ENT: Denies: Rhinorrhea, Sore throat Cardiovascular: Denies: Chest pain, Palpitations Respiratory: Reports: Dyspnea, Dyspnea on exertion Gastrointestinal: Denies: Abdominal pain, Nausea, Vomiting Genitourinary: Denies: Dysuria, Hematuria Musculoskeletal: Reports: Myalgias. Denies: Arthralgias, Neck pain, Back pain Skin: Denies: Rash, Abscess Neurological: Denies: Headache, Parasthesia Psych: Denies: Depression, Anxiety Physical Exam Vital Signs/Narrative: Vital Signs Temp Pulse Resp BP Pulse Ox 01/04/21 10:04 100 01/04/21 09:56 98.0 F 106 H 30 H 112/72 92 01/04/21 09:52 0 F L 30 H 80 General: Cachectic, Acute Distress - Apneic and hypoxic using accessory muscles for respiration. Head: Normocephalic, Atraumatic ENT: Moist mucous membranes, No rhinorrhea Cardiovascular: Regular rate, Regular rhythm Respiratory: No distress, CTA bilaterally Abdomen: Soft, Nontender, Nondistended Extremities: Nontender, No edema Skin: Normal color, No rash. Negative for: Cyanosis, Diaphoresis Neurological: Alert, Oriented x3, Cranial nerves II-XII grossly intact Psychological: Normal affect, Normal Mood Diagnostic/Tx/Re-eval - Rhythm Strip Rhythm Strip: Sinus Rhythm Rate: 81 - EKG Initial EKG Interpretation: Sinus Rhythm, No Acute Injury Pattern - Medical Decision Making 55-year-old male with history of end-stage lung disease due to COPD and current every day smoker of 1 cigarette presenting with worsening shortness of breath x2 weeks. Patient was noted to be significantly hypoxic on arrival and was using accessory muscles to breathe. He was placed on nonrebreather initially and then put on BiPAP. EKG performed on arrival shows a sinus rhythm at 81 bpm without signs of ischemic changes as interpreted by myself. Chest x-ray shows no acute cardiopulmonary process as interpreted by myself. Radiology does agree. Patient CBC shows a white blood cell count of 6.2, hemoglobin 12.4, platelets 256, D-dimer negative. GFR and electrolytes unremarkable. Patient improved on BiPAP. Patient was given 2 rounds of breathing treatments as well as Solu-Medrol 125 mg. Given patient's oxygen demands and COPD exacerbation I will admit him to the hospital for further treatment. Impression: 1. COPD exacerbation 2. Hypoxic respiratory failure ED Disposition - Plan for ED Patient:
[2021-01-04] MEDS: Ipratropium/Albuterol Sulfate 3 ML AMPUL.NEB INHALATION ×4 (10:14→18:47)
[2021-01-04] MEDS: Albuterol 2.5 MG/3 ML VIAL.NEB. INHALATION ×2 (10:14→12:42)
[2021-01-04 10:22] LABS: Absolute Lymphocyte Count 1.69 X10^3/uL (0.83-4.51); Absolute Neutrophil Count 3.8 X10^3/uL (2.0-7.7); Basophil# 0.04 X10^3/uL; Basophil% 0.6 % (0-1); Eosinophil# 0.12 X10^3/uL; Eosinophils% 1.9 % (0-5); Hematocrit 42.1 % (40-54); Hemoglobin 12.4 g/dL (13.0-16.5); Lymphocyte # 1.69 X10^3/ul (4.0); Lymphocyte % 27.3 % (19-41); Mean Corp Hgb Conc 29.5 g/dL (32-36); Mean Corpuscular Hgb 30.8 pg (27.0-32.0); Mean Corpuscular Volume 104.5 fL (80-94); Mean Platelet Vol. 9.2 fl (6.2-12.0); Monocyte# 0.55 X10^3/uL; Monocyte% 8.9 % (0-10); NRBC Flagged by Analyzer 0 % (0-5); Neutrophil # 3.76 X10^3/uL (2.7-7.7); Platelet Count 256 K/mm3 (150-450); RBC Distribution Width SD 50.1 fl (35.1-43.9); Red Blood Count 4.03 M/mm3 (4.6-6.2); White Blood Count 6.2 K/mm3 (4.4-11.0)
[2021-01-04 10:25] LABS: International Normalized Ratio 0.9; Prothrombin Time (Protime)PT. 11.7 SECONDS (11.7-14.9)
[2021-01-04 10:29] LABS: D-Dimer Quantitative (DVT/PE) <= 0.27 FEU/ug/m (0.27-0.49)
[2021-01-04 10:35] LABS: ALB/GLOB Ratio 1.1 RATIO (0.9-2.4); AST(SGOT) 10 U/L (15-37); Alanine Aminotransfer ALT/SGPT 14 U/L (16-61); Albumin, Serum 3.8 g/dL (3.2-5.0); Alkaline Phosphatase 62 U/L (45-117); Anion Gap 1 (5-15); BUN 10 mg/dL (7-18); BUN/Creat Ratio 17.5 RATIO (10-20); Calcium,Total 9.3 mg/dL (8.5-10.1); Chloride 93 mmol/L (98-107); Creatinine, Serum 0.57 mg/dL (0.70-1.30); EST Glomerular Filtration Rate 156 mL/min (>60); Est Glom Filt Rate - Afr Amer 189 mL/min (>60); Estimated Creatinine Clearance 113.19 ml/min; Globulin 3.5 g/dL (2.2-4.2); Glucose 86 mg/dL (74-106); Potassium 4.5 mmol/L (3.5-5.1); Protein, Total 7.3 g/dL (6.4-8.2); Sodium Level 138 mmol/L (136-145)
[2021-01-04 10:53] LABS: Lactic Acid 1.5 mmol/L (0.4-1.9)
[2021-01-04] MEDS: MethylPREDNISolone 125 MG/2 ML Vial IV (11:23)
--- NOTE | 2021-01-04 11:30 | RAD_ITS ---
STUDY: X-RAY CHEST REASON FOR EXAM: Male, 55 years old. Hypoxia and sob x 2 weeks. TECHNIQUE: Single AP portable view of the chest. COMPARISON: Comparison is made with prior study dated 12/25/2019. FINDINGS: EKG electrodes are seen. There is hyperinflation of the lungs consistent with chronic obstructive lung disease (COPD). The lungs are clear. There is no demonstrated pleural abnormality. Normal size heart. Normal mediastinum and akash. Normal visualized pulmonary arteries. Normal visualized aortic arch and descending thoracic aorta. Normal visualized thoracic spine. Healed left rib fractures. There is no demonstrated abnormality of the visualized soft tissue structures of the upper abdomen. RAD/Chest 1 View (Portable) IMPRESSION: Hyperinflation. The lungs are clear. Electronically Signed: Bryan Dominguez MD at 12:12 EST , Service support ,
--- NOTE | 2021-01-04 12:55 | NURSING ---
Emir VALERA HYPOXIC RESP FAILURE, COPD EXAC
[2021-01-04 12:58] LABS: Bacteria 0 SEEN /hpf (None Seen); Mucous, Urine 0 SEEN /hpf (<or=2+); Red Blood Cells-Urine 0 SEEN /hpf (0-5); White Blood Cells 0 SEEN /hpf (0-5)
[2021-01-04 13:01] LABS: Color, Urine Yellow (Yellow); Glucose, Dipstick Normal (Normal); Ketone-Dipstick Negative (Negative); Leukocyte Esterase-Dipstick Negative /ul (Negative); Nitrite-Dipstick Negative (Negative); Occult Blood-Urine Negative /ul (Negative); Protein-Dipstick Negative (Negative); Urine Bilirubin Dipstick Negative (Negative); Urine Clarity Sl. Cloudy (Clear); Urine Urobilinogen Normal (Normal)
[2021-01-04 13:08] LABS: Amorphous Sediment 2+ PHOS; Squamous Epithelial Cells - UA 0-5 SEEN /hpf (0-5)
[2021-01-04 13:30] LABS: Allen Test Positive; Base Excess 12 mmol/L (-2 to +2); Bicarbonate 38.6 mmol/L (22-26); Blood Gas Specimen Type ART; FI02 35; Mode BiLevel; O2 Delivery Device BiPAP; PO2 83 mmHG (75-100); SITE L Radial; SO2 94 % (95-99); Total Carbon Dioxide 41 mmol/L; pCO2 75.9 mmHg (35-45); pH 7.31 (7.35-7.45)
--- NOTE | 2021-01-04 13:30 | CPS ---
Critical C02 verified times two.Hand delivered values to DR. Guerra.Verified by read back.
--- NOTE | 2021-01-04 13:35 | EKG12_ITS ---
Test Reason : ARRYTHMIA Blood Pressure : / mmHG Vent. Rate : 083 BPM Atrial Rate : 083 BPM P-R Int : 122 ms QRS Dur : 080 ms QT Int : 334 ms P-R-T Axes : 081 078 080 degrees QTc Int : 392 ms Normal sinus rhythm ST elevation, consider early repolarization, pericarditis, or injury Abnormal ECG Confirmed by ESTEBAN MARTELL, TD ([id number]), online content editor FIORELLA KIM ([id number]) on 01/05/2021 10:41:05 AM Referred By: OSIRIS Confirmed By:TD ORELLANA MD
--- NOTE | 2021-01-04 14:02 | HP.PCM_ITS ---
<Devi Mchugh POSITION DESCRIPTION MANAGER - Last Filed: 01/04/21 14:29> Problem List (1) Respiratory failure with hypoxia Status: Chronic Qualifiers: Chronicity: acute on chronic Qualified Code(s): J96.21 - Acute and chronic respiratory failure with hypoxia (2) Stage 4 very severe COPD by GOLD classification Status: Chronic Comment: FEV1 23% of predicted (3) Collapse of lung Status: Resolved (4) COPD exacerbation Status: Acute (5) Tobacco abuse Status: Chronic (6) Severe malnutrition Status: Chronic History of Present Illness Date of Admission: 01/04/21 Chief Complaint: Shortness of breath, cough. The patient is a 55 year old M who presents to the emergency room due to increased shortness of breath and cough. Patient states he has chronic shortness of breath due to severe COPD. Over the past week and a half he reports increased shortness of breath and increased cough. He reports increased sputum production as well. Denies fever, chills. Denies exposure to sick contacts. Denies sore throat or new nasal congestion. He states he has chronic allergies with intermittent nasal congestion and chronically blocked left nostril. Patient states he is prescribed 1 L nasal cannula continuous oxygen however he has been wearing 2.5 L continuously over the past week and a half. He states he previously followed with Dr. Castellon, pulmonary medicine as outpatient however he lost his insurance. He has a past medical history of chronic hypoxic respiratory failure secondary to stage IV severe COPD, tobacco dependence, severe protein calorie malnutrition. He reports he is quit smoking intermittently however currently smokes about 4 cigarettes/day. Past Medical History Past Medical History (Chronic Problems): Chronic Problems (Last Reviewed 04/14/20 @ 07:23 by Devi Londono) Respiratory failure with hypoxia (Chronic) Stage 4 very severe COPD by GOLD classification (Chronic) FEV1 23% of predicted Tobacco abuse (Chronic) Severe malnutrition (Chronic) Medical History: Medical History (Last Reviewed 04/14/20 @ 07:23 by Devi Londono) COPD exacerbation (Chronic) J44.1 Tobacco abuse (Resolved) Z72.0 Severe malnutrition (Chronic) E43 Allergies No Known Allergies Allergy (Verified 01/04/21 10:08) Home Medications: Ambulatory Orders Medication Instructions Recorded Albuterol Sulfate [Albuterol 1 - 2 puff INHALATION Q4H PRN PRN 12/31/19 Sulfate Hfa] #1 inhaler Fluticasone/Umeclidin/Vilanter 1 inh INHALATION DAILY #1 unit 12/31/19 [Alvin Fernandez 100-62.5-25] Prednisone 10 mg PO UD 01/04/21 Surgical History: Surgical History (Last Reviewed 04/14/20 @ 07:23 by Devi Londono) Collapse of lung (Resolved) J98.19 Surgical History: - - Hx PTX s/p chest tube placement. Psychiatric History: No pertinent psych hx Lives: Roommate Smoking Status: Current every day smoker Tobacco Use: Cigarettes Alcohol: None Drugs: None - *Family History Maternal Family History: Family History (Last Reviewed 01/04/21 @ 14:09 by Devi Mchugh POSITION DESCRIPTION MANAGER, POSITION DESCRIPTION MANAGER-C) Father COPD (chronic obstructive pulmonary disease) Mother Heart disease COPD (chronic obstructive pulmonary disease) History Items: - - Patient with a maternal and paternal family history of chronic lung disease, chronic COPD, both tobacco users. Paternal Family History: Family History (Last Reviewed 01/04/21 @ 14:09 by Deiv Mchugh POSITION DESCRIPTION MANAGER, POSITION DESCRIPTION MANAGER-C) Father COPD (chronic obstructive pulmonary disease) Mother Heart disease COPD (chronic obstructive pulmonary disease) History Items: - - Patient with a maternal and paternal family history of chronic lung disease, chronic COPD, both tobacco users. Review of Systems Constitutional: Denies: Anorexia, Chills, Fever, Weakness HEENT: Reports: Nasal Congestion - Chronic. Denies: Head Aches, Sinus Congestion, Sinus Drainage, Sore Throat Cardiovascular: Denies: Chest Pain, Edema, Palpitations, Syncope Respiratory: Reports: Cough, Shortness of Breath, Sputum production, Wheezing Gastrointestinal: Denies: Abdominal Pain, Nausea, Vomiting Genitourinary: Denies: Dysuria Musculoskeletal: Denies: Joint Pain, Joint Tenderness Skin: Denies: Rash, Wounds Neurological: Denies: Numbness, Tingling, Focal weakness Psychiatric: Denies: Anxiety, Depression, Homicidal Ideations, Suicidal Ideations Hematologic/ Lymphatic: Denies: Easy Bruising, Easy Bleeding VTE Information - Inpt Only VTE Present on Admission: No VTE Mechan Device Prophylaxis: None VTE Pharm Prophylaxis ordered?: Yes Patient Problems: Active and Suspected Problems (Last Reviewed 04/14/20 @ 07:23 by Devi Londono) COPD exacerbation (Acute) - Physical Exam Vitals/I&O's: Vital Signs Temp Pulse Resp BP Pulse Ox 97.4 F L 94 20 H 113/72 100 01/04/21 13:03 01/04/21 13:02 01/04/21 13:02 01/04/21 13:02 01/04/21 13:02 Oxygen Flow Rate (L/min) 5 Oxygen Delivery Method Bi-pap Weight: 121 lb 14.65 oz Body Mass Index (BMI) 16.0 General: Alert, Oriented x3, Cooperative, - - On BiPAP HEENT: Atraumatic, PERRLA, EOMI, Normocephalic Oral: Dry Mucosa Neck: Supple, No JVD, Negative Carotid Bruits Lungs: Clear to auscultation, Diminished - Severely diminished Cardiovascular: Regular rate, No murmurs Abdomen: Bowel Sounds Present, Soft, Non Tender, Non-Distended Extremities: No clubbing, No cyanosis, No edema, Capillary Refill Less than 3 Seconds Skin: No rashes Musculoskeletal: No Tenderness to Palpation of Joints or Extremities, Cachexia, Muscle Wasting Neurological: Cranial nerves II-XII grossly intact, Neuro grossly intact Psych/Mental Status: Normal Affect, Appropriate Laboratory Results 01/04/21 10:05: WBC 6.2, RBC 4.03 L, Hgb 12.4 L, Hct 42.1, MCV 104.5 H, MCH 30.8, MCHC 29.5 L, RDW Std Deviation 50.1 H, RDW Coeff of Kristopher 13.0, Plt Count 256, MPV 9.2, Immature Gran % (Auto) 0.300, Neut % (Auto) 61.0, Lymph % (Auto) 27.3, [place] % (Auto) 8.9, Eos % (Auto) 1.9, Baso % (Auto) 0.6, Absolute Neuts (auto) 3.8, Absolute Lymphs (auto) 1.69, Nucleated RBC % 0 01/04/21 10:05: PT 11.7, INR 0.9, APTT 34.0, D-Dimer Quant (PE/DVT) <= 0.27 01/04/21 10:05: Sodium 138, Potassium 4.5, Chloride 93 L, Carbon Dioxide 44.0 H, Anion Gap 1 L, BUN 10, Creatinine 0.57 L, Estim Creat Clear Calc 113.19, Est GFR (MDRD) Af Amer 189, Est GFR (MDRD) Non-Af 156, BUN/Creatinine Ratio 17.5, Glucose 86, Calcium 9.3, Total Bilirubin 0.20, AST 10 L, ALT 14 L, Alkaline Phosphatase 62, Troponin I < 0.015, Total Protein 7.3, Albumin 3.8, Globulin 3.5, Albumin/Globulin Ratio 1.1 01/04/21 10:10: Lactic Acid 1.5 01/04/21 12:55: Urine Color Yellow, Urine Clarity Sl. Cloudy, Urine pH 7.0, Ur Specific Petroleum 1.010, Urine Protein Negative, Urine Glucose (UA) Normal, Urine Ketones Negative, Urine Occult Blood Negative, Urine Nitrite Negative, Urine Bilirubin Negative, Urine Urobilinogen Normal, Ur Leukocyte Esterase Negative, Urine RBC 0 SEEN, Urine WBC 0 SEEN, Ur Squamous Epith Cells 0-5 SEEN, Amorphous Sediment 2+ PHOS, Urine Bacteria 0 SEEN, Urine Mucus 0 SEEN 01/04/21 13:24: Specimen Type ART, Sample Site L Radial, pH 7.31 L, Bicarbonate Actual 38.6 H, Total CO2 41, Base Excess 12 H, O2 Saturation 94 L, O2 % 35, ABG pCO2 75.9 H*, ABG pO2 83, Asim Test Positive, O2 Delivery Device BiPAP, Vent Mode BiLevel Current Medications Sodium Chloride () 500 mls @ 999 mls/hr IV .Q31M ONE Last Admin: 01/04/21 11:22 Dose: 999 mls/hr Documented by: Assessment/Plan All Active Problems (Last Reviewed 04/14/20 @ 07:23 by Devi Londono) COPD exacerbation (Acute) Collapse of lung (Resolved) 1. Acute on chronic hypoxic respiratory failure secondary to stage IV severe COPD-chest x-ray without infiltrate. IV Solu-Medrol. Albuterol DuoNeb aerosols. Placed on BiPAP on admission. Continue as tolerated. Continue supplement oxygen to maintain O2 at above 90%. Check respiratory panel. 2. Tobacco dependence-encourage cessation. Nicotine replacement patch if desired. 3. Severe protein calorie malnutrition-dietitian consult DVT prophylaxis-Lovenox subcu This patient was seen by JESÚS Tay under the supervision of Dr. Sharma. <Jaden Sharma - Last Filed: 01/04/21 16:27> History of Present Illness The patient is a 55 year old M [] Past Medical History Medical History: Medical History (Last Reviewed 04/14/20 @ 07:23 by Devi Londono) COPD exacerbation (Chronic) J44.1 Tobacco abuse (Resolved) Z72.0 Severe malnutrition (Chronic) E43 Allergies No Known Allergies Allergy (Verified 01/04/21 10:08) Surgical History: Surgical History (Last Reviewed 04/14/20 @ 07:23 by Devi Londono) Collapse of lung (Resolved) J98.19 - *Family History Maternal Family History: Family History (Last Reviewed 01/04/21 @ 14:09 by Devi Mchugh POSITION DESCRIPTION MANAGER, POSITION DESCRIPTION MANAGER-C) Father COPD (chronic obstructive pulmonary disease) Mother Heart disease COPD (chronic obstructive pulmonary disease) Paternal Family History: Family History (Last Reviewed 01/04/21 @ 14:09 by Devi Mchugh POSITION DESCRIPTION MANAGER, POSITION DESCRIPTION MANAGER-C) Father COPD (chronic obstructive pulmonary disease) Mother Heart disease COPD (chronic obstructive pulmonary disease) - Physical Exam Vitals/I&O's: Vital Signs Temp Pulse Resp BP Pulse Ox 98.2 F 95 26 H 113/75 97 01/04/21 15:26 01/04/21 15:52 01/04/21 15:26 01/04/21 15:26 01/04/21 15:26 Oxygen Flow Rate (L/min) 5 Oxygen Delivery Method Bi-pap Weight: 121 lb 14.65 oz Body Mass Index (BMI) 16.0 Laboratory Results 01/04/21 10:05: WBC 6.2, RBC 4.03 L, Hgb 12.4 L, Hct 42.1, MCV 104.5 H, MCH 30.8, MCHC 29.5 L, RDW Std Deviation 50.1 H, RDW Coeff of Kristopher 13.0, Plt Count 256, MPV 9.2, Immature Gran % (Auto) 0.300, Neut % (Auto) 61.0, Lymph % (Auto) 27.3, [place] % (Auto) 8.9, Eos % (Auto) 1.9, Baso % (Auto) 0.6, Absolute Neuts (auto) 3.8, Absolute Lymphs (auto) 1.69, Nucleated RBC % 0 01/04/21 10:05: PT 11.7, INR 0.9, APTT 34.0, D-Dimer Quant (PE/DVT) <= 0.27 01/04/21 10:05: Sodium 138, Potassium 4.5, Chloride 93 L, Carbon Dioxide 44.0 H, Anion Gap 1 L, BUN 10, Creatinine 0.57 L, Estim Creat Clear Calc 113.19, Est GFR (MDRD) Af Amer 189, Est GFR (MDRD) Non-Af 156, BUN/Creatinine Ratio 17.5, Glucose 86, Calcium 9.3, Total Bilirubin 0.20, AST 10 L, ALT 14 L, Alkaline Phosphatase 62, Troponin I < 0.015, Total Protein 7.3, Albumin 3.8, Globulin 3.5, Albumin/Globulin Ratio 1.1 01/04/21 10:10: Lactic Acid 1.5 01/04/21 12:55: Urine Color Yellow, Urine Clarity Sl. Cloudy, Urine pH 7.0, Ur Specific Petroleum 1.010, Urine Protein Negative, Urine Glucose (UA) Normal, Urine Ketones Negative, Urine Occult Blood Negative, Urine Nitrite Negative, Urine Bilirubin Negative, Urine Urobilinogen Normal, Ur Leukocyte Esterase Negative, Urine RBC 0 SEEN, Urine WBC 0 SEEN, Ur Squamous Epith Cells 0-5 SEEN, Amorphous Sediment 2+ PHOS, Urine Bacteria 0 SEEN, Urine Mucus 0 SEEN 01/04/21 13:24: Specimen Type ART, Sample Site L Radial, pH 7.31 L, Bicarbonate Actual 38.6 H, Total CO2 41, Base Excess 12 H, O2 Saturation 94 L, O2 % 35, ABG pCO2 75.9 H*, ABG pO2 83, Asim Test Positive, O2 Delivery Device BiPAP, Vent Mode BiLevel Current Medications Acetaminophen (Acetaminophen 325 Mg Tablet) 650 mg PO Q6H PRN PRN PRN Reason: Pain Score 1-10/Temp > 100.7 F Albuterol Sulfate (Albuterol 2.5 Mg/3 Ml Vial.Neb.) 2.5 mg INHALATION Q2H PRN PRN PRN Reason: SHORTNESS OF BREATH Albuterol/Ipratropium (Ipratropium/Albuterol Sulfate 3 Ml Ampul.Neb) 3 ml INHALATION Q4HWA.RT MARIA R Enoxaparin Sodium (Enoxaparin 40 Mg/0.4 Ml Syringe) 40 mg SC DAILY MARIA R Sodium Chloride () 500 mls @ 999 mls/hr IV .Q31M ONE Last Admin: 01/04/21 11:22 Dose: 999 mls/hr Documented by: Sodium Chloride () 1,000 mls @ 100 mls/hr IV .Q10H MARIA R Last Admin: 01/04/21 15:16 Dose: 100 mls/hr Documented by: Influenza Virus Vaccine Quadrival (Influenza Vaccine (6mos+)/Pf 0.5 Ml Syringe) 0.5 ml IM .ONCE ONE Stop: 01/05/21 10:01 Methylprednisolone (Methylprednisolone 40 Mg/Ml Vial) 40 mg IV Q8 MARIA R Last Admin: 01/04/21 15:20 Dose: 40 mg Documented by: Ondansetron HCl (Ondansetron 4 Mg/2 Ml Vial) 4 mg IV Q8H PRN PRN PRN Reason: NAUSEA/VOMITING Sodium Chloride (0.9% Saline Lock 10 Ml Syringe) 10 - 40 ml IV UD PRN PRN Reason: SALINE FLUSH Last Admin: 01/04/21 15:19 Dose: 10 ml Documented by: Addendum: Dr. Sharma I personally examined the patient and reviewed the chart. I agree with the above. 55-year-old male with stage IV COPD presents to the hospital with little over 2 weeks of shortness of breath and increasing oxygen requirements. He has very poor air movement on exam though did have some improvement with albuterol treatments in the ER. He denies any fevers or chills, and states that he is not interacted with anybody with Covid, denies any Covid-like symptoms. He does still smoke though only about 4 cigarettes/day. Meeting with pulmonology as an outpatient but then he lost his insurance and has not been back. Initially presented with acute hypoxia to 80% on 4 L nasal cannula. He was placed on nonrebreather and then ultimately placed on BiPAP. ABG while on the BiPAP demonstrated pH of 7.31 with a bicarb of 38.6 and a PCO2 of 75.9. We will continue with the BiPAP as well as steroids and duo nebs. Inpatient E&M: 73163 Init Hosp L3
[2021-01-04] MEDS: 0.9% Normal Saline 1,000 ML 100 ML IV (15:16)
[2021-01-04] MEDS: 0.9% Saline Lock 10 ML Syringe IV (15:19)
[2021-01-04] MEDS: Acetaminophen 325 MG Tablet 650 MG PO (19:24)
--- NOTE | 2021-01-04 23:24 | CPS ---
Patient transitioned to AVAPS on BiPAP for decreased Tidal volumes on previous settings. AVAPS will be tried to promote increased ventilation overnight. RN aware of change.
[2021-01-05] VITALS (15 sets, daily range): BP systolic 110–130; BP diastolic 65–80; PULSE 64–105; RESP 14–22; TEMP 36.3–37.1; O2SAT 90–99; BMI 16.0
[2021-01-05] MEDS: MELATONIN 10 MG TABLET PO ×2 (00:06→21:28)
[2021-01-05] MEDS: 0.9% Normal Saline 1,000 ML 100 ML IV (00:49)
[2021-01-05] MEDS: Ipratropium/Albuterol Sulfate 3 ML AMPUL.NEB INHALATION ×4 (06:48→19:31)
[2021-01-05 07:39] LABS: Absolute Lymphocyte Count 1.17 X10^3/uL (0.83-4.51); Absolute Neutrophil Count 9.4 X10^3/uL (2.0-7.7); Basophil# 0.02 X10^3/uL; Basophil% 0.2 % (0-1); Hematocrit 37.2 % (40-54); Hemoglobin 11.6 g/dL (13.0-16.5); Lymphocyte # 1.17 X10^3/ul (4.0); Lymphocyte % 10.6 % (19-41); Mean Corp Hgb Conc 31.2 g/dL (32-36); Mean Corpuscular Hgb 31.2 pg (27.0-32.0); Mean Platelet Vol. 9.4 fl (6.2-12.0); Monocyte% 3.6 % (0-10); NRBC Flagged by Analyzer 0 % (0-5); Neutrophil # 9.37 X10^3/uL (2.7-7.7); Neutrophil % 85.1 % (47-70); Platelet Count 245 K/mm3 (150-450); RBC Distribution Width CV 13.1 % (11.6-14.6); Red Blood Count 3.72 M/mm3 (4.6-6.2)
[2021-01-05 07:56] LABS: Anion Gap 5 (5-15); BUN 19 mg/dL (7-18); Calcium,Total 9.1 mg/dL (8.5-10.1); Chloride 100 mmol/L (98-107); Creatinine, Serum 0.66 mg/dL (0.70-1.30); EST Glomerular Filtration Rate 134 mL/min (>60); Est Glom Filt Rate - Afr Amer 162 mL/min (>60); Estimated Creatinine Clearance 97.75 ml/min; Glucose 177 mg/dL (74-106); Potassium 4.1 mmol/L (3.5-5.1); Sodium Level 139 mmol/L (136-145)
[2021-01-05] MEDS: Enoxaparin 40 MG/0.4 ML Syringe SC (08:47)
--- NOTE | 2021-01-05 11:43 | CASEMGMT ---
BIMAL VOSS assessment: Face to Face with patient for initial transition planning/care coordination assessment. BIMAL VOSS introduced self and role at [facility], pt voices understanding and consents to assessment. Pt is sitting up in bed finishing nebulizer treatment. Pt is A/Ox4 and answers all questions appropriately at this time. Care providers, pharmacy, and demographics verified/updated. Presentation: Increased SOB x 2 wks Admitting dx: COPD exac [facility]: [facility]- Pt wishes to change to a different PCP. Physician list provided to pt. Specialists: anita Castellon Preferred Pharmacy: [facility] Insurance: Pt reports he does not have insurance. States he is over resources for Medicaid. Prescription Benefit: None, E. Tone SW aware and voices understanding. Living Will/HPOA: Pt states does not have LW/HPOA and declines AD info. LNOK: Natividad Marroquin, sister Living Arrangements: Pt lives in a duplex with a roommate and states no concerns at home. Pt is independent in ADL's. Transportation: Pt states his roommate drives him and no transportation issues. DME/HHC: Pt states he has a nebulizer machine at home ( he does not use due to not being able to afford meds) and O2 through [employer]. Pt has not had HHC previously. Patient states no concerns with going home at time of discharge. Pt states he had one cigarette yesterday and doesn't ever want to smoke again. Pt drinks one 16 oz can of ETOH a day. Pt states no further concerns/needs. CM to follow for any further discharge planning/needs. Advised pt to ask for CM if any further questions/concerns/needs arise, voices understanding. Pt goal: Home Plan: Home
--- NOTE | 2021-01-05 13:38 | CASEMGMT ---
TC to [employer] and pt's order for O2 is 2L continuous.
[2021-01-05] MEDS: 0.9% Saline Lock 10 ML Syringe IV (14:05)
--- NOTE | 2021-01-05 14:13 | CASEMGMT ---
SW met with patient as he is self pay. Introduced self and role at [facility]. SW gave patient a packet of self pay resources including: [employer] [facility], [facility] financial assistance program, [employer]ymeds[employer]org, and [employer]. SW will also see what his discharge medications are to see if he needs assistance. Evelin SÁNCHEZ MSW
--- NOTE | 2021-01-05 14:39 | PCM.NTREPORT ---
Nutrition Therapy Report - History Nutrition Services has been consulted to:: Manage nutrient details of diet order Current diet / nutrition support order:: Regular diet - Anthropometric Measurements Height:: 6 ft 1 in Weight:: 55.3 kg Body Mass Index (BMI):: 16.0 - Relevant Labs Relevant Labs:: RBC 3.72 M/mm3 (4.6-6.2) L 01/05/21 07:15 Hgb 11.6 g/dL (13.0-16.5) L 01/05/21 07:15 Hct 37.2 % (40-54) L 01/05/21 07:15 MCV 100.0 fL (80-94) H 01/05/21 07:15 MCHC 31.2 g/dL (32-36) L D 01/05/21 07:15 RDW Std Deviation 48.0 fl (35.1-43.9) H 01/05/21 07:15 Neut % (Auto) 85.1 % (47-70) H 01/05/21 07:15 Lymph % (Auto) 10.6 % (19-41) L 01/05/21 07:15 Absolute Neuts (auto) 9.4 X10^3/uL (2.0-7.7) H 01/05/21 07:15 Chloride 93 mmol/L (98-107) L 01/04/21 10:05 Carbon Dioxide 34.0 mmol/L (21.0-32.0) H 01/05/21 07:15 Anion Gap 1 (5-15) L 01/04/21 10:05 BUN 19 mg/dL (7-18) H 01/05/21 07:15 Creatinine 0.66 mg/dL (0.70-1.30) L 01/05/21 07:15 BUN/Creatinine Ratio 29.0 RATIO (10-20) H 01/05/21 07:15 Glucose 177 mg/dL (74-106) H 01/05/21 07:15 AST 10 U/L (15-37) L 01/04/21 10:05 ALT 14 U/L (16-61) L 01/04/21 10:05 - Assessment Food / Nutrition-Related History:: Pt reports UBW~120-122 lbs and reports stable wt x past 3-6 months; per EMR wt about 12 months ago was 118 lbs so, no recent wt loss identified at this time. Pt has had significant wt loss over the past several years due to severe COPD and inability to replete kcal/increased energy expenditure. Pt reports appetite is typically good and intake has been good as well--takes ensure at home and requesting 2 magic cups BID w/ lunch and dinner as well. Did well today at breakfast but, lunch ~50% consumed--observed tray today; reports decreased appetite at lunch today. Will provide ensure (natacha or vanilla) and magic cup varied flavors w/ meals. Missing teeth noted but, pt denies difficulty chewing/swallowing. +NFPA with muscle/fat wasting in the face, arms and legs. - Nutrition Diagnosis Problem / Etiology / Signs & Symptoms (PES):: Moderate to severe pro/vincent malnutrition in the context of chronic disease/COPD as evidenced by decreased PO/susanna due to COPD exac and +NFPA with obvious muscle/fat wasting in the face, arms and legs. Evidence of Malnutrition Exists:: Yes Moderate PCM:: Chronic Illness - Nutrition Intervention Nutrition Prescription:: Estimated nutrition needs~8923-9095 kcal (35 kcal/Kg) and ~80-85 gm protein (1.5 gm pro/Kg) per day. Estimated fluid needs~8628-6319 ml/day (30-36 ml/Kg) - Food / Nutrient Delivery Interventions Summary of nutrition intervention:: Will continue regular diet as ordered. Will add 2 magic cups w/ lunch and dinner per pt request--varied flavors. Will add 240 ml ensure enlive BID w/ breakfast and dinner as per pt home practices--pt will sip on them. Monitor blood glucose levels and need for carb-controlled diet restriction. Nutrition support ordered as / adjusted to:: none Nutrition education provided?: Yes - MNT Monitoring Further MNT monitoring and evaluation required?: Yes MNT Follow-up in:: 3-5 days
--- NOTE | 2021-01-05 14:47 | PN_ITS ---
<Devi Mchugh CHILDREN'S LITERATURE PROFESSOR - Last Filed: 01/05/21 14:51> Patient Problems: Active and Suspected Problems (Last Reviewed 04/14/20 @ 07:23 by Devi Londono) COPD exacerbation (Acute) Subjective: Patient seen and examined. Reports improvement in breathing. Tolerated BiPAP overnight. Cough improved as well. Denies fever, chills. Denies new symptoms or complaints. - Physical Exam Vitals/I&O's: Vital Signs Temp Pulse Resp BP Pulse Ox 97.8 F 84 20 H 110/65 94 01/05/21 08:38 01/05/21 11:21 01/05/21 11:21 01/05/21 08:38 01/05/21 08:38 Oxygen Flow Rate (L/min) 2 Oxygen Delivery Method Nasal Cannula Weight: 121 lb 14.65 oz Body Mass Index (BMI) 16.0 Intake and Output for Last 24 Hours 01/03/21 01/04/21 01/05/21 23:59 23:59 23:59 Intake Total 739.5 / 739.5 Balance 739.5 / 739.5 General: Alert, Oriented x3, Cooperative HEENT: Atraumatic, PERRLA, EOMI, Normocephalic Neck: Supple, No JVD, Negative Carotid Bruits Lungs: Diminished, Wheezes Cardiovascular: Regular rate, No murmurs Abdomen: Bowel Sounds Present, Soft, Non Tender Extremities: No clubbing, No cyanosis, No edema, Capillary Refill Less than 3 Seconds Skin: No rashes, No breakdown Musculoskeletal: No Tenderness to Palpation of Joints or Extremities Neurological: Cranial nerves II-XII grossly intact, Neuro grossly intact Psych/Mental Status: Normal Affect, Appropriate Microbiology Past 72 Hours 01/04/21 12:55 Urine, Catheterized Urine Culture - Preliminary Culture exhibits no growth. 01/04/21 14:48 Mucosa - Nose Respiratory Panel (PCR) - Final Laboratory Results 01/05/21 07:15: WBC 11.0, RBC 3.72 L, Hgb 11.6 L, Hct 37.2 L, MCV 100.0 H, MCH 31.2, MCHC 31.2 L D, RDW Std Deviation 48.0 H, RDW Coeff of Kristopher 13.1, Plt Count 245, MPV 9.4, Immature Gran % (Auto) 0.500, Neut % (Auto) 85.1 H, Lymph % (Auto) 10.6 L, [place] % (Auto) 3.6, Eos % (Auto) 0.0, Baso % (Auto) 0.2, Absolute Neuts (auto) 9.4 H, Absolute Lymphs (auto) 1.17, Nucleated RBC % 0 01/05/21 07:15: Sodium 139, Potassium 4.1, Chloride 100, Carbon Dioxide 34.0 H, Anion Gap 5, BUN 19 H, Creatinine 0.66 L, Estim Creat Clear Calc 97.75, Est GFR (MDRD) Af Amer 162, Est GFR (MDRD) Non-Af 134, BUN/Creatinine Ratio 29.0 H, Glucose 177 H, Calcium 9.1 Current Medications Acetaminophen (Acetaminophen 325 Mg Tablet) 650 mg PO Q6H PRN PRN PRN Reason: Pain Score 1-10/Temp > 100.7 F Last Admin: 01/04/21 19:24 Dose: 650 mg Documented by: Albuterol Sulfate (Albuterol 2.5 Mg/3 Ml Vial.Neb.) 2.5 mg INHALATION Q2H PRN PRN PRN Reason: SHORTNESS OF BREATH Albuterol/Ipratropium (Ipratropium/Albuterol Sulfate 3 Ml Ampul.Neb) 3 ml INHALATION Q4HWA.RT [facility] Last Admin: 01/05/21 11:21 Dose: 3 ml Documented by: Enoxaparin Sodium (Enoxaparin 40 Mg/0.4 Ml Syringe) 40 mg SC DAILY [facility] Last Admin: 01/05/21 08:47 Dose: 40 mg Documented by: Sodium Chloride () 500 mls @ 999 mls/hr IV .Q31M ONE Last Infusion: 01/04/21 11:53 Dose: Infused Documented by: Melatonin (Melatonin 10 Mg Tablet) 10 mg PO QHS [facility] Last Admin: 01/05/21 00:06 Dose: 10 mg Documented by: Methylprednisolone (Methylprednisolone 40 Mg/Ml Vial) 40 mg IV Q8 [facility] Last Admin: 01/05/21 14:05 Dose: 40 mg Documented by: Ondansetron HCl (Ondansetron 4 Mg/2 Ml Vial) 4 mg IV Q8H PRN PRN PRN Reason: NAUSEA/VOMITING Sodium Chloride (0.9% Saline Lock 10 Ml Syringe) 10 - 40 ml IV UD PRN PRN Reason: SALINE FLUSH Last Admin: 01/05/21 14:05 Dose: 20 ml Documented by: Medical Necessity - Tobacco Use Smoking Status: Current every day smoker Tobacco Use: Cigarettes Assessment/Plan All Active Problems (Last Reviewed 04/14/20 @ 07:23 by Devi Londono) COPD exacerbation (Acute) Collapse of lung (Resolved) 1. Acute on chronic hypoxic respiratory failure secondary to stage IV severe COPD-chest x-ray without infiltrate. IV Solu-Medrol. Albuterol DuoNeb aerosols. Placed on BiPAP on admission. Continue as tolerated. Continue supplement oxygen to maintain O2 at above 90%. Respiratory panel negative. 2. Tobacco dependence-encourage cessation. Nicotine replacement patch if desired. 3. Severe protein calorie malnutrition-dietitian consult DVT prophylaxis-Lovenox subcu This patient was seen by Devi Mchugh NP-C under the supervision of Dr. Sharma. <Jaden Sharma F - Last Filed: 01/05/21 15:28> - Physical Exam Vitals/I&O's: Vital Signs Temp Pulse Resp BP Pulse Ox 97.8 F 105 H 22 H 110/65 94 01/05/21 08:38 01/05/21 14:44 01/05/21 15:00 01/05/21 08:38 01/05/21 08:38 Oxygen Flow Rate (L/min) 2 Oxygen Delivery Method Nasal Cannula Weight: 121 lb 14.65 oz Body Mass Index (BMI) 16.0 Intake and Output for Last 24 Hours 01/03/21 01/04/21 01/05/21 23:59 23:59 23:59 Intake Total 739.5 / 739.5 2072.33 / 2072.33 Balance 739.5 / 739.5 / 2072.33 Microbiology Past 72 Hours 01/04/21 12:55 Urine, Catheterized Urine Culture - Preliminary Culture exhibits no growth. 01/04/21 14:48 Mucosa - Nose Respiratory Panel (PCR) - Final Laboratory Results 01/05/21 07:15: WBC 11.0, RBC 3.72 L, Hgb 11.6 L, Hct 37.2 L, MCV 100.0 H, MCH 31.2, MCHC 31.2 L D, RDW Std Deviation 48.0 H, RDW Coeff of Kristopher 13.1, Plt Count 245, MPV 9.4, Immature Gran % (Auto) 0.500, Neut % (Auto) 85.1 H, Lymph % (Auto) 10.6 L, [place] % (Auto) 3.6, Eos % (Auto) 0.0, Baso % (Auto) 0.2, Absolute Neuts (auto) 9.4 H, Absolute Lymphs (auto) 1.17, Nucleated RBC % 0 01/05/21 07:15: Sodium 139, Potassium 4.1, Chloride 100, Carbon Dioxide 34.0 H, Anion Gap 5, BUN 19 H, Creatinine 0.66 L, Estim Creat Clear Calc 97.75, Est GFR (MDRD) Af Amer 162, Est GFR (MDRD) Non-Af 134, BUN/Creatinine Ratio 29.0 H, Glucose 177 H, Calcium 9.1 Current Medications Acetaminophen (Acetaminophen 325 Mg Tablet) 650 mg PO Q6H PRN PRN PRN Reason: Pain Score 1-10/Temp > 100.7 F Last Admin: 01/04/21 19:24 Dose: 650 mg Documented by: Albuterol Sulfate (Albuterol 2.5 Mg/3 Ml Vial.Neb.) 2.5 mg INHALATION Q2H PRN PRN PRN Reason: SHORTNESS OF BREATH Albuterol/Ipratropium (Ipratropium/Albuterol Sulfate 3 Ml Ampul.Neb) 3 ml INHALATION Q4HWA.RT [facility] Last Admin: 01/05/21 14:59 Dose: 3 ml Documented by: Enoxaparin Sodium (Enoxaparin 40 Mg/0.4 Ml Syringe) 40 mg SC DAILY [facility] Last Admin: 01/05/21 08:47 Dose: 40 mg Documented by: Sodium Chloride () 500 mls @ 999 mls/hr IV .Q31M ONE Last Infusion: 01/04/21 11:53 Dose: Infused Documented by: Melatonin (Melatonin 10 Mg Tablet) 10 mg PO QHS [facility] Last Admin: 01/05/21 00:06 Dose: 10 mg Documented by: Methylprednisolone (Methylprednisolone 40 Mg/Ml Vial) 40 mg IV Q8 [facility] Last Admin: 01/05/21 14:05 Dose: 40 mg Documented by: Ondansetron HCl (Ondansetron 4 Mg/2 Ml Vial) 4 mg IV Q8H PRN PRN PRN Reason: NAUSEA/VOMITING Sodium Chloride (0.9% Saline Lock 10 Ml Syringe) 10 - 40 ml IV UD PRN PRN Reason: SALINE FLUSH Last Admin: 01/05/21 14:05 Dose: 20 ml Documented by: Addendum: Dr. Sharma I personally examined the patient and reviewed the chart. I agree with the above. 55-year-old male with stage IV COPD presents to the hospital with little over 2 weeks of shortness of breath and increasing oxygen requirements. He has very poor air movement on exam though did have some improvement with albuterol treatments in the ER. He denies any fevers or chills, and states that he is not interacted with anybody with Covid, denies any Covid-like symptoms. He does still smoke though only about 4 cigarettes/day. Meeting with pulmonology as an outpatient but then he lost his insurance and has not been back. Initially presented with acute hypoxia to 80% on 4 L nasal cannula. He was placed on nonrebreather and then ultimately placed on BiPAP. ABG while on the BiPAP demonstrated pH of 7.31 with a bicarb of 38.6 and a PCO2 of 75.9. We will continue with the BiPAP as well as steroids and duo nebs. 01/05/2021: Feeling better and states that he is breathing better. He now states that he has not quit smoking completely, he understands he needs to follow-up with pulmonology as an outpatient to try to get this under control he understands that his disease is so severe that he does likely need a lung transplant. Also on exam he has better air movement today. We will continue w ith steroids and inhalers at this time. We will obtain an ambulatory pulse ox tomorrow morning for further evaluation on his oxygen on discharge. Inpatient E&M: [id number] Subs Hosp L2
[2021-01-05] MEDS: Acetaminophen 325 MG Tablet 650 MG PO (19:18)
[2021-01-06] VITALS (15 sets, daily range): BP systolic 110–153; BP diastolic 68–86; PULSE 66–118; RESP 12–27; TEMP 36.6–36.9; O2SAT 87–99
--- NOTE | 2021-01-06 05:29 | EKG12_ITS ---
Test Reason : RHYTHM CHANGE Blood Pressure : / mmHG Vent. Rate : 071 BPM Atrial Rate : 071 BPM P-R Int : 108 ms QRS Dur : 084 ms QT Int : 348 ms P-R-T Axes : 021 075 079 degrees QTc Int : 378 ms Sinus rhythm with short ME Otherwise normal ECG When compared with ECG of 04-JAN-2021 13:32, No significant change was found Confirmed by ESTEBAN MARTELL, TD ([id number]), dictionary editor HAKEME MORRISON ([id number]) on 01/07/2021 1:20:20 PM Referred By: MORAIMA Confirmed By:TD ORELLANA MD
[2021-01-06] MEDS: 0.9% Saline Lock 10 ML Syringe IV ×2 (05:56→14:51)
[2021-01-06 06:40] LABS: Magnesium 2.1 mg/dL (1.6-2.6)
[2021-01-06] MEDS: Ipratropium/Albuterol Sulfate 3 ML AMPUL.NEB INHALATION ×3 (07:29→15:23)
[2021-01-06] MEDS: Enoxaparin 40 MG/0.4 ML Syringe SC (09:31)
--- NOTE | 2021-01-06 12:34 | PCM.PROGNOTE ---
<eDvi Mchugh SPRINKLER INSTALLER - Last Filed: 01/06/21 12:54> Patient Problems: Active and Suspected Problems (Last Reviewed 04/14/20 @ 07:23 by Devi Londono) COPD exacerbation (Acute) Subjective: Patient seen and examined. Reports worsening of symptoms overnight with increased shortness of breath. Denies fever, chills. States he does not feel at his baseline or ready to return home today. - Physical Exam Vitals/I&O's: Vital Signs Temp Pulse Resp BP Pulse Ox 98.1 F 115 H 22 H 110/83 H 92 01/06/21 08:30 01/06/21 11:15 01/06/21 11:15 01/06/21 08:30 01/06/21 08:30 Oxygen Flow Rate (L/min) [ 2 AMBULATION with Oxygen] Oxygen Flow Rate (L/min) [ 0 AMBULATING on Room Air] Oxygen Flow Rate (L/min) [At 0 REST on Room Air] Oxygen Flow Rate (L/min) 2 Oxygen Delivery Method Nasal Cannula Weight: 121 lb 14.65 oz Body Mass Index (BMI) 16.0 Intake and Output for Last 24 Hours 01/04/21 01/05/21 01/06/21 23:59 23:59 23:59 Intake Total 739.5 / 739.5 3028.33 / 3028.33 600 / 600 Balance 739.5 / 739.5 3028.33 / 3028.33 600 / 600 General: Alert, Oriented x3, Cooperative HEENT: Atraumatic, PERRLA, EOMI, Normocephalic Neck: Supple, No JVD, Negative Carotid Bruits Lungs: Diminished, Wheezes Cardiovascular: Regular rate, No murmurs Abdomen: Bowel Sounds Present, Soft, Non Tender, Non-Distended Extremities: No clubbing, No cyanosis, No edema, Capillary Refill Less than 3 Seconds Skin: No rashes, No breakdown Musculoskeletal: No Tenderness to Palpation of Joints or Extremities Neurological: Cranial nerves II-XII grossly intact, Neuro grossly intact Psych/Mental Status: Normal Affect, Appropriate Microbiology Past 72 Hours 01/05/21 15:06 Sputum, Expectorated/Coughed Gram Stain - Final 01/05/21 15:06 Sputum, Expectorated/Coughed Respiratory Culture - Preliminary Appears to be normal respiratory jad. Further studies to follow. 01/04/21 10:10 Blood Culture (Wb) - Anticubital Right Blood Culture - Preliminary No growth in 48 hours. 01/04/21 10:15 Blood Culture (Wb) - Right Wrist Blood Culture - Preliminary No growth in 48 hours. 01/04/21 12:55 Urine, Catheterized Urine Culture - Preliminary Culture exhibits no growth. 01/04/21 14:48 Mucosa - Nose Respiratory Panel (PCR) - Final Laboratory Results 01/06/21 05:46: Magnesium 2.1 Current Medications Acetaminophen (Acetaminophen 325 Mg Tablet) 650 mg PO Q6H PRN PRN PRN Reason: Pain Score 1-10/Temp > 100.7 F Last Admin: 01/05/21 19:18 Dose: 650 mg Documented by: Albuterol Sulfate (Albuterol 2.5 Mg/3 Ml Vial.Neb.) 2.5 mg INHALATION Q2H PRN PRN PRN Reason: SHORTNESS OF BREATH Albuterol/Ipratropium (Ipratropium/Albuterol Sulfate 3 Ml Ampul.Neb) 3 ml INHALATION Q4HWA.RT [facility] Last Admin: 01/06/21 11:12 Dose: 3 ml Documented by: Enoxaparin Sodium (Enoxaparin 40 Mg/0.4 Ml Syringe) 40 mg SC DAILY [facility] Last Admin: 01/06/21 09:31 Dose: 40 mg Documented by: Sodium Chloride () 500 mls @ 999 mls/hr IV .Q31M ONE Last Infusion: 01/04/21 11:53 Dose: Infused Documented by: Melatonin (Melatonin 10 Mg Tablet) 10 mg PO QHS [facility] Last Admin: 01/05/21 21:28 Dose: 10 mg Documented by: Methylprednisolone (Methylprednisolone 40 Mg/Ml Vial) 40 mg IV Q8 [facility] Last Admin: 01/06/21 05:56 Dose: 40 mg Documented by: Ondansetron HCl (Ondansetron 4 Mg/2 Ml Vial) 4 mg IV Q8H PRN PRN PRN Reason: NAUSEA/VOMITING Sodium Chloride (0.9% Saline Lock 10 Ml Syringe) 10 - 40 ml IV UD PRN PRN Reason: SALINE FLUSH Last Admin: 01/06/21 05:56 Dose: 10 ml Documented by: Medical Necessity - Tobacco Use Smoking Status: Current every day smoker Tobacco Use: Cigarettes Assessment/Plan All Active Problems (Last Reviewed 04/14/20 @ 07:23 by Devi Londono) COPD exacerbation (Acute) Collapse of lung (Resolved) 1. Acute on chronic hypoxic respiratory failure secondary to stage IV severe COPD-chest x-ray without infiltrate. IV Solu-Medrol. Albuterol DuoNeb aerosols. Placed on BiPAP on admission. Continue BiPAP at night and as needed. Continue supplement oxygen to maintain O2 at above 90%. Respiratory panel negative. Amatory pulse ox completed and patient will require 2 L nasal cannula with ambulation. Case management following. 2. Tobacco dependence-encourage cessation. Nicotine replacement patch if desired. 3. Severe protein calorie malnutrition-dietitian consult 4. Paroxysmal atrial tachycardia-electrolytes within normal limits. Will begin low-dose beta-mason. DVT prophylaxis-Lovenox subcu This patient was seen by Devi Mchugh NP-C under the supervision of Dr. Sharma. <Jaden Sharma F - Last Filed: 01/06/21 17:17> - Physical Exam Vitals/I&O's: Vital Signs Temp Pulse Resp BP Pulse Ox 98.1 F 107 H 18 121/86 H 97 01/06/21 16:25 01/06/21 16:25 01/06/21 16:25 01/06/21 16:25 01/06/21 16:25 Oxygen Flow Rate (L/min) [ 2 AMBULATION with Oxygen] Oxygen Flow Rate (L/min) [ 0 AMBULATING on Room Air] Oxygen Flow Rate (L/min) [At 0 REST on Room Air] Oxygen Flow Rate (L/min) 2 Oxygen Delivery Method Nasal Cannula Weight: 121 lb 14.65 oz Body Mass Index (BMI) 16.0 Intake and Output for Last 24 Hours 01/04/21 01/05/21 01/06/21 23:59 23:59 23:59 Intake Total 739.5 / 739.5 3028.33 / 3028.33 1080 / 1080 Balance 739.5 / 739.5 3028.33 / 3028.33 1080 / 1080 Microbiology Past 72 Hours 01/04/21 12:55 Urine, Catheterized Urine Culture - Preliminary Gram positive eric 01/05/21 15:06 Sputum, Expectorated/Coughed Gram Stain - Final 01/05/21 15:06 Sputum, Expectorated/Coughed Respiratory Culture - Preliminary Appears to be normal respiratory jad. Further studies to follow. 01/04/21 10:10 Blood Culture (Wb) - Anticubital Right Blood Culture - Preliminary No growth in 48 hours. 01/04/21 10:15 Blood Culture (Wb) - Right Wrist Blood Culture - Preliminary No growth in 48 hours. 01/04/21 14:48 Mucosa - Nose Respiratory Panel (PCR) - Final Laboratory Results 01/06/21 05:46: Magnesium 2.1 Current Medications Acetaminophen (Acetaminophen 325 Mg Tablet) 650 mg PO Q6H PRN PRN PRN Reason: Pain Score 1-10/Temp > 100.7 F Last Admin: 01/05/21 19:18 Dose: 650 mg Documented by: Albuterol Sulfate (Albuterol 2.5 Mg/3 Ml Vial.Neb.) 2.5 mg INHALATION Q2H PRN PRN PRN Reason: SHORTNESS OF BREATH Albuterol/Ipratropium (Ipratropium/Albuterol Sulfate 3 Ml Ampul.Neb) 3 ml INHALATION Q4HWA.RT [facility] Last Admin: 01/06/21 15:23 Dose: 3 ml Documented by: Enoxaparin Sodium (Enoxaparin 40 Mg/0.4 Ml Syringe) 40 mg SC DAILY [facility] Last Admin: 01/06/21 09:31 Dose: 40 mg Documented by: Sodium Chloride () 500 mls @ 999 mls/hr IV .Q31M ONE Last Infusion: 01/04/21 11:53 Dose: Infused Documented by: Melatonin (Melatonin 10 Mg Tablet) 10 mg PO QHS [facility] Last Admin: 01/05/21 21:28 Dose: 10 mg Documented by: Methylprednisolone (Methylprednisolone 40 Mg/Ml Vial) 40 mg IV Q8 [facility] Last Admin: 01/06/21 14:50 Dose: 40 mg Documented by: Metoprolol Tartrate (Metoprolol Tartrate 25 Mg Tablet) 12.5 mg PO BID [facility] Last Admin: 01/06/21 14:26 Dose: 12.5 mg Documented by: Ondansetron HCl (Ondansetron 4 Mg/2 Ml Vial) 4 mg IV Q8H PRN PRN PRN Reason: NAUSEA/VOMITING Sodium Chloride (0.9% Saline Lock 10 Ml Syringe) 10 - 40 ml IV UD PRN PRN Reason: SALINE FLUSH Last Admin: 01/06/21 14:51 Dose: 10 ml Documented by: Addendum: Dr. Sharma I personally examined the patient and reviewed the chart. I agree with the above. 55-year-old male with stage IV COPD presents to the hospital with little over 2 weeks of shortness of breath and increasing oxygen requirements. He has very poor air movement on exam though did have some improvement with albuterol treatments in the ER. He denies any fevers or chills, and states that he is not interacted with anybody with Covid, denies any Covid-like symptoms. He does still smoke though only about 4 cigarettes/day. Meeting with pulmonology as an outpatient but then he lost his insurance and has not been back. Initially presented with acute hypoxia to 80% on 4 L nasal cannula. He was placed on nonrebreather and then ultimately placed on BiPAP. ABG while on the BiPAP demonstrated pH of 7.31 with a bicarb of 38.6 and a PCO2 of 75.9. We will continue with the BiPAP as well as steroids and duo nebs. 01/05/2021: Feeling better and states that he is breathing better. He now states that he has not quit smoking completely, he understands he needs to follow-up with pulmonology as an outpatient to try to get this under control he understands that his disease is so severe that he does likely need a lung transplant. Also on exam he has better air movement today. We will continue with steroids and inhalers at this time. We will obtain an ambulatory pulse ox tomorrow morning for further evaluation on his oxygen on discharge. 01/06/2021: Does not feel at baseline today, his breathing better maintain his oxygen sats on 2 L. He did have an ambulatory pulse ox which demonstrated an oxygen need of 2 L with ambulation. We will continue with inhalers as well as steroids for now and when he is ready to go home we will plan for prednisone for about a week and then he can return back to his 10 mg daily as well as we will refill his inhalers. I discussed with him that even though he does not have insurance he can follow-up with pulmonology on discharge from the hospital and then as long as he is on a payment plan he can continue to see pulmonology which he states he is aware of and would like to follow through as he understands that he needs a lung transplant in order to survive his severe COPD. Inpatient E&M: [id number] Subs Hosp L2
--- NOTE | 2021-01-06 12:59 | CASEMGMT ---
[employer] sent patient's prescriptions to [facility] so SW is able to utilize [facility] prescription assistance program. Form completed and sent to outpatient pharmacy. Evelin TAM
--- NOTE | 2021-01-06 13:03 | CASEMGMT ---
Per Azucena at [facility] [place], pt's out of pocket ohara for home oxygen is $104 and pt is behind a few months on payment. She states they do have a [employer] insurance policy on file for pt but it does not cover DME with policy #[id number] and call to [employer] at this time and they state pt no longer has a policy through them and they have nothing on file. Angelito WALLIS CM
[2021-01-06] MEDS: Metoprolol Tartrate 25 MG Tablet 12.5 MG PO ×2 (14:26→21:14)
[2021-01-06] MEDS: Acetaminophen 325 MG Tablet 650 MG PO (19:42)
[2021-01-06] MEDS: Sodium Chloride 0.65% 1 SPRAY SPRAY.BTL NASAL (21:16)
[2021-01-06] MEDS: MELATONIN 10 MG TABLET PO (21:16)
[2021-01-07] VITALS (9 sets, daily range): BP systolic 109–112; BP diastolic 71–75; PULSE 64–112; RESP 14–71; TEMP 37.1–37.2; O2SAT 94–99
[2021-01-07] MEDS: 0.9% Saline Lock 10 ML Syringe IV (05:19)
[2021-01-07] MEDS: Ipratropium/Albuterol Sulfate 3 ML AMPUL.NEB INHALATION ×2 (07:27→11:32)
[2021-01-07] MEDS: Metoprolol Tartrate 25 MG Tablet 12.5 MG PO (09:56)
[2021-01-07] MEDS: Enoxaparin 40 MG/0.4 ML Syringe SC (09:57)
[2021-01-07] MEDS: Sodium Chloride 0.65% 1 SPRAY SPRAY.BTL NASAL (09:58)
--- NOTE | 2021-01-07 10:13 | DCINST_ITS ---
- Discharge Diagnoses Current Active Problems: Current Active and Chronic Problems (Last Reviewed 04/14/20 @ 07:23 by Devi Londono) Respiratory failure with hypoxia (Chronic) Stage 4 very severe COPD by GOLD classification (Chronic) FEV1 23% of predicted COPD exacerbation (Acute) Tobacco abuse (Chronic) Severe malnutrition (Chronic) You will use the following diet at home:: Regular Your food should be the consistency of: Regular Your liquids should be the consistency of: Regular/Thin Discharge Activity: Return to Normal Activity Call your doctor if you observe: Fever of 101 or Higher, Shortness of breath, Dizziness, Fainting spells, Swelling in the ankles, Chest pain, Increased palpitations (irregular heartbeat) Allergies/Adverse Reactions: Allergies No Known Allergies Allergy (Verified 01/04/21 10:08) Medications to take at Discharge Albuterol Sulfate [Albuterol Sulfate Hfa] 1 - 2 puff INHALATION Q4H PRN PRN #1 inhaler 01/06/21 Fluticasone/Umeclidin/Vilanter [Trelegy Ellipta 100-62.5-25] 1 inh INHALATION DAILY #1 unit 01/06/21 Prednisone See Taper PO DAILY #30 tab 01/06/21 Metoprolol Tartrate [Lopressor (beta mason)] 12.5 mg PO BID #60 tab 01/07/21 The following prescriptions were given: Albuterol Sulfate [Albuterol Sulfate Hfa] 1 - 2 puff INHALATION Q4H PRN PRN #1 inhaler PRN Reason: shortness of breath or wheezing Transmission Status: Received by [facility] Metoprolol Tartrate [Lopressor (beta mason)] 12.5 mg PO BID #60 tab Transmission Status: Pending to [facility] Prednisone See Taper PO DAILY #30 tab Transmission Status: Received by [facility] Fluticasone/Umeclidin/Vilanter [Trelegy Ellipta 100-62.5-25] 1 inh INHALATION DAILY #1 unit Transmission Status: Received by [facility] Primary Care Physician: NOT,DEFINED [NON-STAFF] - Please follow up with your Primary Care Physician in: 3-5 days Test Results: Test results from this visit will be discussed in further detail at your follow- up appointment, if applicable. Please Follow Up With: Fanny Whitfield NP, ELECTRICAL POWER STATION TECHNICIAN-C When: 2 weeks
--- NOTE | 2021-01-07 10:15 | DS.PCM_ITS ---
Discharge Date and Diagnosis - Problem List Patient Problems: Active and Suspected Problems (Last Reviewed 04/14/20 @ 07:23 by Devi Londono) COPD exacerbation (Acute) Date of Admission: 01/04/21 Date of Discharge: 01/07/21 - Primary Discharge Diagnosis Acute Problems: Active Problems (Last Reviewed 04/14/20 @ 07:23 by Devi Londono) COPD exacerbation (Acute) - Secondary Discharge Diagnosis Chronic Problems: Chronic Problems (Last Reviewed 04/14/20 @ 07:23 by Devi Londono) Respiratory failure with hypoxia (Chronic) Stage 4 very severe COPD by GOLD classification (Chronic) FEV1 23% of predicted Tobacco abuse (Chronic) Severe malnutrition (Chronic) Hospital Course and Treatment Imaging Results: Clinical Impression(s) from Imaging Studies Chest X-Ray 01/04/21 11:30 IMPRESSION: Hyperinflation. The lungs are clear. Electronically Signed: Bryan Dominguez MD at 12:12 EST , Service support , Operations: None Procedures: None Summary of Care Provided: Per HPI: The patient is a 55 year old M who presents to the emergency room due to increased shortness of breath and cough. Patient states he has chronic shortness of breath due to severe COPD. Over the past week and a half he reports increased shortness of breath and increased cough. He reports increased sputum production as well. Denies fever, chills. Denies exposure to sick contacts. Denies sore throat or new nasal congestion. He states he has chronic allergies with intermittent nasal congestion and chronically blocked left nostril. Patient states he is prescribed 1 L nasal cannula continuous oxygen however he has been wearing 2.5 L continuously over the past week and a half. He states he previously followed with Dr. Castellon, pulmonary medicine as outpatient however he lost his insurance. He has a past medical history of chronic hypoxic respiratory failure secondary to stage IV severe COPD, tobacco dependence, severe protein calorie malnutrition. He reports he is quit smoking intermittently however currently smokes about 4 cigarettes/day. Hospital Course: 1. Acute on chronic hypoxic respiratory failure secondary to stage IV severe COPD/tobacco [id number] male with stage IV severe COPD presented to the hospital shortness of breath. Infectious work-up was negative, he did not have a signs or symptoms of Covid and has not been around anybody who tested positive for Covid. He was initially placed on BiPAP on admission his ABG demonstrated hypoxic and hypercapnic respiratory failure. His PCO2 was 75.9 with a pH of 7.31. He improved significantly and has been maintaining his oxygen saturations on 2 L nasal cannula. He is required 2 L at rest as well as with ambulation.. 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 I discussed with him that he can still see his doctors and will try to get him assistance for his medications through our pharmacy. We will continue with a steroid taper and have him follow-up with pulmonology in 2 weeks. He also states that he now understands it he does need to quit smoking completely and he says that he will. I discussed with him the plan for discharge today expressed understanding the risk and benefits of going home and would like to go home today. 2. Multifocal atrial tachycardia-consistent with his severe pulmonary disease. He was started on metoprolol 12.5 mg p.o. twice daily, which we will continue on discharge. If during his follow-up visits he continues to be tachycardic, may need to switch to a calcium channel mason. 3. Severe protein calorie malnutrition will complicate his care. Patient Problems: Active and Suspected Problems (Last Reviewed 04/14/20 @ 07:23 by Devi Londono) COPD exacerbation (Acute) - Physical Exam Vitals/I&O's: Vital Signs Temp Pulse Resp BP Pulse Ox 99 F 112 H 20 H 111/75 97 01/07/21 08:00 01/07/21 09:56 01/07/21 08:00 01/07/21 09:56 01/07/21 08:00 Oxygen Flow Rate (L/min) [ 2 AMBULATION with Oxygen] Oxygen Flow Rate (L/min) [ 0 AMBULATING on Room Air] Oxygen Flow Rate (L/min) [At 0 REST on Room Air] Oxygen Flow Rate (L/min) 2 Oxygen Delivery Method Nasal Cannula Weight: 121 lb 14.65 oz Body Mass Index (BMI) 16.0 Intake and Output for Last 24 Hours 01/05/21 01/06/21 01/07/21 23:59 23:59 23:59 Intake Total 3028.33 / 3028.33 1680 / 2180 800 / 800 Balance 3028.33 / 3028.33 1680 / 2180 800 / 800 General: Alert, Oriented x3, Cooperative, No apparent distress HEENT: Atraumatic, PERRLA, EOMI, Normocephalic Oral: Moist Mucosa Neck: Supple, No JVD Lungs: No rhonchi, No rales, Diminished, Wheezes Cardiovascular: Regular rate, Regular Rhythm, Normal S1, Normal S2, No murmurs Abdomen: Soft, Non Tender, Non-Distended, No Hepato-splenomegaly Extremities: No edema, Capillary Refill Less than 3 Seconds Skin: No rashes, No breakdown Neurological: Neuro grossly intact, Sensory exam intact to light touch and pain Psych/Mental Status: Normal Affect, Appropriate Microbiology Past 72 Hours 01/04/21 12:55 Urine, Catheterized Urine Culture - Final Gram positive eric 01/05/21 15:06 Sputum, Expectorated/Coughed Gram Stain - Final 01/05/21 15:06 Sputum, Expectorated/Coughed Respiratory Culture - Preliminary Appears to be normal respiratory jad. Further studies to follow. 01/04/21 10:10 Blood Culture (Wb) - Anticubital Right Blood Culture - Preliminary No growth in 48 hours. 01/04/21 10:15 Blood Culture (Wb) - Right Wrist Blood Culture - Preliminary No growth in 48 hours. 01/04/21 14:48 Mucosa - Nose Respiratory Panel (PCR) - Final Current Medications Acetaminophen (Acetaminophen 325 Mg Tablet) 650 mg PO Q6H PRN PRN PRN Reason: Pain Score 1-10/Temp > 100.7 F Last Admin: 01/06/21 19:42 Dose: 650 mg Documented by: Albuterol Sulfate (Albuterol 2.5 Mg/3 Ml Vial.Neb.) 2.5 mg INHALATION Q2H PRN PRN PRN Reason: SHORTNESS OF BREATH Albuterol/Ipratropium (Ipratropium/Albuterol Sulfate 3 Ml Ampul.Neb) 3 ml INHALATION Q4HWA.RT [facility] Last Admin: 01/07/21 07:27 Dose: 3 ml Documented by: Enoxaparin Sodium (Enoxaparin 40 Mg/0.4 Ml Syringe) 40 mg SC DAILY [facility] Last Admin: 01/07/21 09:57 Dose: 40 mg Documented by: Sodium Chloride () 500 mls @ 999 mls/hr IV .Q31M ONE Last Infusion: 01/04/21 11:53 Dose: Infused Documented by: Melatonin (Melatonin 10 Mg Tablet) 10 mg PO QHS [facility] Last Admin: 01/06/21 21:16 Dose: 10 mg Documented by: Methylprednisolone (Methylprednisolone 40 Mg/Ml Vial) 40 mg IV Q8 [facility] Last Admin: 01/07/21 05:16 Dose: 40 mg Documented by: Metoprolol Tartrate (Metoprolol Tartrate 25 Mg Tablet) 12.5 mg PO BID [facility] Last Admin: 01/07/21 09:56 Dose: 12.5 mg Documented by: Ondansetron HCl (Ondansetron 4 Mg/2 Ml Vial) 4 mg IV Q8H PRN PRN PRN Reason: NAUSEA/VOMITING Sodium Chloride (0.9% Saline Lock 10 Ml Syringe) 10 - 40 ml IV UD PRN PRN Reason: SALINE FLUSH Last Admin: 01/07/21 05:19 Dose: 10 ml Documented by: Sodium Chloride (Sodium Chloride 0.65% 1 Coleman Coleman.Btl) 1 spray NASAL BID PRN PRN PRN Reason: NASAL DRYNESS Last Admin: 01/07/21 09:58 Dose: 1 spray Documented by: Discharge Activity: Return to Normal Activity Call your doctor if you observe: Fever of 101 or Higher, Shortness of breath, Dizziness, Fainting spells, Swelling in the ankles, Chest pain, Increased palpitations (irregular heartbeat) Home Medications: Medications to take at Discharge Albuterol Sulfate [Albuterol Sulfate Hfa] 1 - 2 puff INHALATION Q4H PRN PRN #1 inhaler 01/06/21 Fluticasone/Umeclidin/Vilanter [Trelegy Ellipta 100-62.5-25] 1 inh INHALATION DAILY #1 unit 01/06/21 Prednisone See Taper PO DAILY #30 tab 01/06/21 Metoprolol Tartrate [Lopressor (beta mason)] 12.5 mg PO BID #60 tab 01/07/21 Following Prescriptions Were Given to Patient: Albuterol Sulfate [Albuterol Sulfate Hfa] 1 - 2 puff INHALATION Q4H PRN PRN #1 inhaler PRN Reason: shortness of breath or wheezing Transmission Status: Received by [facility] Metoprolol Tartrate [Lopressor (beta mason)] 12.5 mg PO BID #60 tab Transmission Status: Pending to [facility] Prednisone See Taper PO DAILY #30 tab Transmission Status: Received by [facility] Fluticasone/Umeclidin/Vilanter [Trelegy Ellipta 100-62.5-25] 1 inh INHALATION DAILY #1 unit Transmission Status: Received by [facility] Primary Care Physician: NOT,DEFINED [NON-STAFF] - Please follow up with your Primary Care Physician in: 3-5 days Please Follow Up With: Fanny Whitfield NP, WINTER[employer]ER-C When: 2 weeks Disposition: Home Minutes spent on discharge:: 35 Patient Condition:: Stable Medical Necessity - Tobacco Use Smoking Status: Current every day smoker Tobacco Use: Cigarettes Meaningful Use Info Meaningful Use Diagnoses (Choose all that apply): None applicable Inpatient E&M: 67882 Disch Hosp
--- NOTE | 2021-01-08 15:27 | CASEMGMT ---
BIMAL VOSS Discharge Follow Up Phone Call: SOFIA: Salena STRATA: 3 Call Date: 01/08/21 Discharge Date: 01/07/21 Duration:3 min Admitting Diagnosis: COPD exacerbation BIMAL Voss completed follow up phone call after recent hospitalization. Pt denies questions regarding dc instructions. States he is doing well. His neighbor was able to take him to pick and shovel man his RX and had no issues. Pt has FU appt scheduled with Fanny Beltran on 01/22/21 at 1:45pm and he is aware. No further questions or concerns.
== END 2021-01-07 12:57 | disposition home or self-care (01) | DRG 190 ==
LOC: ED 11:14 → PCU 12:48
PROVIDERS: Hospitalist; Admitting Provider Family Medicine; Emergency Provider Student in an Organized Health Care Education/Training Program; Visit Provider Family Medicine
DX: J44.1 Chronic obstructive pulmonary disease with (acute) exacerbation (principal); E43 Unspecified severe protein-calorie malnutrition; J96.21 Acute and chronic respiratory failure with hypoxia; Z68.1 Body mass index [BMI] 19.9 or less, adult; I47.1 Supraventricular tachycardia; F17.210 Nicotine dependence, cigarettes, uncomplicated; Z99.81 Dependence on supplemental oxygen; Z79.51 Long term (current) use of inhaled steroids
CPT/HCPCS: 36415; 36600; 71045; 80048; 80053; 81001; 82803; 83605; 83735; 84484; 85025; 85379; 85610; 85730; 87040; 87070; 87077; 87086; 87088; 87205; 87633; 93005; 94002; 94003; 94640; 99285; 99406; J7030; J7040; A4216

== ENCOUNTER 2021-03-14 12:59 | Emergency (ER) | payer SELFPAY ==
[2021-03-01 09:21] VITALS: BMI 15.4
[2021-03-14 13:00] VITALS: BP 108/79; PULSE 100; RESP 23; TEMP 36.4; O2SAT 97; BMI 16.7
--- NOTE | 2021-03-14 13:14 | RAD_ITS ---
STUDY: X-RAY CHEST REASON FOR EXAM: Male, 55 years old. Dyspnea and shortness of breath TECHNIQUE: Frontal portable view of the chest COMPARISON: 04 January 2021 FINDINGS: Lungs are severely emphysematous and clear. There is no pneumothorax, pulmonary edema, cardiac megaly or pleural effusions. There is remote healed right posterolateral seventh rib fracture. Appearance is stable since priors. RAD/Chest 1 View (Portable) IMPRESSION: No acute findings, stable since priors. Severe emphysema. Electronically Signed: True Chris MD at 14:51 EDT Tel , Service support ,
--- NOTE | 2021-03-14 13:14 | EKG12_ITS ---
Test Reason : Blood Pressure : / mmHG Vent. Rate : 085 BPM Atrial Rate : 085 BPM P-R Int : 130 ms QRS Dur : 080 ms QT Int : 340 ms P-R-T Axes : 081 081 079 degrees QTc Int : 404 ms Normal sinus rhythm Early repolarization Normal ECG Confirmed by ESTEBAN MARTELL, TD ([id number]), script editor FIORELLA KIM ([id number]) on 03/15/2021 1:03:52 PM Referred By: JOSSUE Confirmed By:TD ORELLANA MD
[2021-03-14] MEDS: Ipratropium/Albuterol Sulfate 3 ML AMPUL.NEB INHALATION (13:20)
[2021-03-14] MEDS: Albuterol 2.5 MG/3 ML VIAL.NEB. INHALATION ×3 (13:20)
[2021-03-14] MEDS: 0.9% Normal Saline 1,000 ML 1000 ML IV (13:46)
[2021-03-14 13:49] LABS: Absolute Lymphocyte Count 1.62 X10^3/uL (0.83-4.51); Absolute Neutrophil Count 5.4 X10^3/uL (2.0-7.7); Basophil# 0.03 X10^3/uL; Basophil% 0.4 % (0-1); Eosinophil# 0.07 X10^3/uL; Eosinophils% 0.9 % (0-5); Hematocrit 38.1 % (40-54); Hemoglobin 11.9 g/dL (13.0-16.5); Lymphocyte # 1.62 X10^3/ul (0.83-4.51); Lymphocyte % 20.7 % (19-41); Mean Corp Hgb Conc 31.2 g/dL (32-36); Mean Corpuscular Hgb 31.1 pg (27.0-32.0); Mean Corpuscular Volume 99.5 fL (80-94); Mean Platelet Vol. 8.8 fl (6.2-12.0); Monocyte% 8.9 % (0-10); NRBC Flagged by Analyzer 0 % (0-5); Neutrophil # 5.38 X10^3/uL (2.7-7.7); Neutrophil % 68.7 % (47-70); Platelet Count 260 K/mm3 (150-450); RBC Distribution Width CV 12.4 % (11.6-14.6); RBC Distribution Width SD 45.2 fl (35.1-43.9); Red Blood Count 3.83 M/mm3 (4.6-6.2); White Blood Count 7.8 K/mm3 (4.4-11.0)
[2021-03-14 14:05] LABS: Anion Gap 4 (5-15); BUN 7 mg/dL (7-18); BUN/Creat Ratio 12.8 RATIO (10-20); Calcium,Total 8.8 mg/dL (8.5-10.1); Chloride 87 mmol/L (98-107); Creatinine, Serum 0.55 mg/dL (0.70-1.30); EST Glomerular Filtration Rate 164 mL/min (>60); Est Glom Filt Rate - Afr Amer 199 mL/min (>60); Estimated Creatinine Clearance 115.46 ml/min; Glucose 101 mg/dL (74-106); Potassium 4.1 mmol/L (3.5-5.1); Sodium Level 131 mmol/L (136-145)
--- NOTE | 2021-03-14 14:22 | EX.ED.DYSGE1 ---
HPI History of Present Illness Chief Complaint: Sore Throat Informant: patient Narrative Narrative: 55-year-old male presenting stating that he feels dehydrated. He states he feels like he is not making enough saliva. He feels like his mouth is dry. Denies difficulty swallowing or painful swallowing. He denies fever. Denies vomiting or diarrhea. He has chronic shortness of breath on home O2. His shortness of breath is no worse than usual. He denies chest pain or other symptoms. Prior similar symptoms: Yes Recent Illness/Hospitalization: No PFSH PFSH Medical History (Updated 03/14/21 @ 15:[address] Briseyda Barreto MD) Alcohol abuse Asthma COPD (chronic obstructive pulmonary disease) COPD exacerbation Hypertension Severe malnutrition Smoker Tobacco abuse Home Medications albuterol sulfate 1 - 2 puff INHALATION Q4H PRN PRN #1 inhaler 01/06/21 [Rx Last Taken Unknown] [id number]-[id number] 1 inh INHALATION DAILY #1 unit 01/06/21 [Rx Last Taken Unknown] metoprolol tartrate 12.5 mg PO BID #60 tab 01/07/21 [Rx Last Taken Unknown] azithromycin 250 mg tablet 250 mg PO QDAY #36 tablet 03/01/21 [Rx Last Taken Unknown] prednisone 10 mg tablet 10 mg PO QDAY #90 tablet 03/01/21 [Rx Last Taken Unknown] Allergy/AdvReac Type Severity Reaction Status Date / Time No Known Allergies Allergy Verified 03/01/21 09:22 Family History (Reviewed 03/01/21 @ 09:43 by Fanny Whitfield QUALIFIED CRAFT WORKER ELECTRICIAN, QUALIFIED CRAFT WORKER ELECTRICIAN-C) Father COPD (chronic obstructive pulmonary disease) Mother Heart disease COPD (chronic obstructive pulmonary disease) Surgical History Collapse of lung Social History (Updated 03/01/21 @ 12:41 by Fanny Whitfield NP, QUALIFIED CRAFT WORKER ELECTRICIAN-C) Smoking Status: Current some day smoker Tobacco: How many years used: 43 second hand exposure: Yes alcohol intake: current alcohol intake frequency: 0-2 drinks per day Alcohol type: beer substance use type: does not use ROS ROS ED Constitutional Constitutional ED: Denies fever(s) Eyes Eyes: Denies change in vision ENT ENT ED: Reports other Details: Dry mouth ; Denies rhinorrhea or sore throat Cardiovascular Cardiovascular: Denies chest pain or palpitations Respiratory/Chest Respiratory/Chest: Reports dyspnea and other Details: Chronic shortness of breath ; Denies cough Gastrointestinal Gastrointestinal: Denies abdominal pain, diarrhea, nausea or vomiting Genitourinary Genitourinary ED: Denies dysuria Musculoskeletal Musculoskeletal: Denies myalgias Integumentary Denies rash Neurologic Neurologic: Denies headache(s) EXAM Physical Exam Const Vital Signs: 03/14/21 13:00 03/14/21 13:20 03/14/21 13:21 Temperature 97.5 F L Temperature Source Temporal Pulse Rate 100 Respiratory Rate 23 H Respiratory Pattern Normal Blood Pressure 108/79 Blood Pressure Mean 88 Pulse Ox 97 Oxygen Delivery Method Nasal Cannula Nasal Cannula Oxygen Flow Rate (L/min) 2 3 Positive well nourished and well developed General Appearance ED: well developed HEENT Reports normocephalic, head/scalp atraumatic and moist mucous membranes Eyes PERRL and EOMs intact bilaterally Neck supple General: Negative for tenderness Chest Wall inspection of chest normal Resp normal respiratory effort Auscultation: wheezes Cardio regular rate and regular rhythm GI non-tender and non-distended Palpation: soft; Negative for guarding or rebound tenderness present no CVA tenderness Extremity normal to inspection Neuro oriented x3 Sensorium / Orientation: alert Psych mental status grossly normal Skin no rashes or lesions noted MDM MDM MDM Narrative Medical decision making narrative: Patient was given albuterol, Atrovent aerosols. He continues to have wheezing on re-exam. He took the breathing treatment off before it was complete. He was given Solumedrol IV. His lungs are improved on reexam. He is alert and oriented at this time and is able to answer questions appropriately. He states his main complaint is dry mouth. His shortness of breath is not worse than usual. He will follow-up with his primary care physician. Advised return to the ED for worsening complaints. Lab Data Attestation: I reviewed the patient's lab results. Labs: Laboratory Results - last 24 hr 03/14/21 03/14/21 13:35 13:35 WBC 7.8 RBC 3.83 L Hgb 11.9 L Hct 38.1 L MCV 99.5 H MCH 31.1 MCHC 31.2 L RDW Std Deviation 45.2 H RDW Coeff of Kristopher 12.4 Plt Count 260 MPV 8.8 Immature Gran % (Auto) 0.400 Neut % (Auto) 68.7 Lymph % (Auto) 20.7 Lanier % (Auto) 8.9 Eos % (Auto) 0.9 Baso % (Auto) 0.4 Absolute Neuts (auto) 5.4 Absolute Lymphs (auto) 1.62 Nucleated RBC % 0 Sodium 131 L Potassium 4.1 Chloride 87 L Carbon Dioxide 40.0 H Anion Gap 4 L BUN 7 Creatinine 0.55 L Estim Creat Clear Calc 115.46 Est GFR (MDRD) Af Amer 199 Est GFR (MDRD) Non-Af 164 BUN/Creatinine Ratio 12.8 Glucose 101 Calcium 8.8 Troponin I < 0.015 ABG Data ABG results: ABG 03/14/21 14:00 Specimen Type Cancelled Sample Site Cancelled pH Cancelled Bicarbonate Actual Cancelled Total CO2 Cancelled Base Excess Cancelled O2 Saturation Cancelled O2 % Cancelled ABG pCO2 Cancelled ABG pO2 Cancelled Asim Test Cancelled Respiration Rate Cancelled O2 Delivery Device Cancelled Liter Flow Cancelled Minute Volume Cancelled Vent Mode Cancelled Inspiratory Time Cancelled Expiratory Time Cancelled Tidal Volume Cancelled Mean Airway Pressure Cancelled POC PEEP Cancelled Peak Inspir Pressure Cancelled POC Pressure Suppt Cancelled Pressure Control Cancelled Pressure High Cancelled Pressure Low Cancelled Time High Cancelled Time Low Cancelled EPAP Cancelled IPAP Cancelled Blood Gas Comments Cancelled Crit Call To/Read Back Cancelled Blood Gas Notified Whom Cancelled Blood Gas Notified Time Cancelled Clinical Comments Cancelled Radiography Chest X-Ray - ED: 1 View, Read by ED Physician and Read by Radiologist Diagnostic Testing: Radiology Impression Chest X-Ray 03/14/21 13:14 IMPRESSION: No acute findings, stable since priors. Severe emphysema. Electronically Signed: True Chris MD at 14:51 EDT Tel , Service support , EKG Initial EKG: Attestation: I personally reviewed and interpreted this EKG as follows: Interpretation: Sinus Rhythm and No Acute Injury Pattern Discharge Plan Triage Chief Complaint: Sore Throat ED Provider: Briseyda Barreto Dx/Rx/DC Orders Clinical Impression: Dry mouth, COPD (chronic obstructive pulmonary disease) Instructions: What Is COPD? Prescriptions: No Action prednisone 10 mg tablet 10 mg PO QDAY Qty: 90 RF: 3 azithromycin 250 mg tablet 250 mg PO QDAY Qty: 36 RF: 3 albuterol sulfate 90 mcg/actuation HFA aerosol inhaler 1 - 2 puff INHALATION Q4H PRN PRN (Reason: shortness of breath or wheezing) Qty: 1 RF: 6 smyrwgmpmhd-ruibipgio-djbfosrz 1 EACH blister with device 1 inh INHALATION DAILY Qty: 1 RF: 0 metoprolol tartrate 25 MG tablet 12.5 mg PO BID Qty: 60 RF: 0 Primary Care Provider[facility] Jodi [facility] - Disposition Disposition: Home, self care
--- NOTE | 2021-03-14 15:00 | CPS ---
Patient pulled treatment off and threw onto floor. aware.
[2021-03-14] MEDS: MethylPREDNISolone 125 MG/2 ML Vial IV (15:40)
[2021-03-14 15:46] VITALS: BP 113/75; PULSE 97; RESP 20; O2SAT 99
[2021-03-14 15:50] VITALS: RESP 16
== END 2021-03-14 16:29 | disposition home or self-care (01) ==
PROVIDERS: Emergency Provider Emergency Medicine
DX: R68.2 Dry mouth, unspecified (principal); J44.9 Chronic obstructive pulmonary disease, unspecified; Z99.81 Dependence on supplemental oxygen; I10 Essential (primary) hypertension; F17.200 Nicotine dependence, unspecified, uncomplicated; Z79.51 Long term (current) use of inhaled steroids; Z79.899 Other long term (current) drug therapy
CPT/HCPCS: 71045; 80048; 84484; 85025; 87426; 93005; 96361; 96374; 99284; J7030; A4216

== ENCOUNTER 2021-08-16 21:04 | Emergency (ER) | payer SELFPAY ==
[2021-08-16 21:05] VITALS: BP 116/99; PULSE 117; RESP 30; TEMP 36.8; O2SAT 97; BMI 13.9
[2021-08-16 21:10] VITALS: BP 116/99; PULSE 117; RESP 30; TEMP 36.8; O2SAT 97
--- NOTE | 2021-08-16 21:18 | EKG12_ITS ---
Test Reason : SOB Blood Pressure : / mmHG Vent. Rate : 116 BPM Atrial Rate : 116 BPM P-R Int : 112 ms QRS Dur : 074 ms QT Int : 304 ms P-R-T Axes : 084 086 061 degrees QTc Int : 422 ms Sinus tachycardia Right atrial enlargement Borderline ECG Confirmed by ESTEBAN MARTELL, TD ([id number]), news copy editor FIORELLA KIM ([id number]) on 08/18/2021 9:20:38 AM Referred By: CONSTANTIN Confirmed By:TD ORELLANA MD
--- NOTE | 2021-08-16 21:30 | EDS_ITS ---
HPI History of Present Illness Chief Complaint: Confusion Narrative Narrative: 56-year-old male presents with low pulse ox from home. Apparently his neighbors called because he seemed to be confused. He normally wears 2 L of oxygen at baseline. He states that he does have episodes where he gets confused at times and he states he just takes it easy. He has not had any change in his oxygen at home. Patient is seen by pulmonology patient is on prednisone daily. Patient currently stating that he is considering a lung transplant however he still continues to smoke and states he smoked today. Patient does appear to be a little bit confused in the room although he is alert and awake and talking to me. He has not a good informant. He also has had episodes of hallucination which is seeing people dancing in the room evaluated. Patient also does complain of some pain around his sacrum she wants to be evaluated. [facility] Medical History Alcohol abuse Asthma COPD (chronic obstructive pulmonary disease) COPD exacerbation Hypertension Severe malnutrition Smoker Tobacco abuse Home Medications albuterol sulfate 1 - 2 puff INHALATION Q4H PRN PRN #1 inhaler 01/06/21 [Rx Last Taken Unknown] metoprolol tartrate 12.5 mg PO BID #60 tab 01/07/21 [Rx Last Taken Unknown] azithromycin 250 mg tablet 250 mg PO QDAY #36 tablet 03/01/21 [Rx Last Taken Unknown] prednisone 10 mg tablet 10 mg PO QDAY #90 tablet 03/01/21 [Rx Last Taken Unknown] fluticasone fur. 200 mcg-umeclid 62.5 mcg-vilant 25 mcg inhalat.powder 1 inh INHALATION DAILY #60 ea 04/19/21 [Rx Last Taken Unknown] Allergy/AdvReac Type Severity Reaction Status Date / Time No Known Allergies Allergy Verified 08/16/21 23:48 Family History Father COPD (chronic obstructive pulmonary disease) Mother Heart disease COPD (chronic obstructive pulmonary disease) Surgical History Collapse of lung Social History Smoking Status: Current every day smoker tobacco type: cigarettes Tobacco: How many years used: 43 second hand exposure: Yes alcohol intake: current alcohol intake frequency: 0-2 drinks per day Alcohol type: beer substance use type: does not use ROS ROS ED Constitutional Constitutional ED: Denies chills or fever(s) Eyes Eyes: Denies blurry vision or change in vision ENT ENT ED: Denies rhinorrhea or sore throat Cardiovascular Cardiovascular: Denies chest pain or palpitations Respiratory/Chest Respiratory/Chest: Reports cough and dyspnea; Denies sputum Gastrointestinal Gastrointestinal: Denies abdominal pain, nausea or vomiting Genitourinary Genitourinary ED: Denies dysuria or hematuria Musculoskeletal Musculoskeletal: Denies arthralgias, back pain, myalgias or neck pain Integumentary Denies Abrasions or rash Neurologic Neurologic: Denies headache(s) or paresthesias EXAM Physical Exam Const Vital Signs: 08/16/21 21:05 08/16/21 21:10 08/16/21 21:21 Temperature 98.3 F 98.3 F Temperature Source Temporal Temporal Pulse Rate 117 H 117 H Respiratory Rate 30 H 30 H Respiratory Effort Respiratory Pattern Blood Pressure 116/99 H 116/99 H Blood Pressure Mean 104 104 Pulse Ox 97 97 Oxygen Delivery Method Nasal Cannula Nasal Cannula Nasal Cannula Oxygen Flow Rate (L/min) 2 2 2 08/16/21 21:43 08/16/21 21:45 08/16/21 22:13 Temperature Temperature Source Pulse Rate 114 H 102 H Respiratory Rate 24 H 24 H Respiratory Effort Short of Breath Respiratory Pattern Tachypnea Tachypnea Blood Pressure 145/99 H Blood Pressure Mean 114 Pulse Ox 99 Oxygen Delivery Method Nasal Cannula Oxygen Flow Rate (L/min) 2 08/16/21 23:07 Temperature 98.3 F Temperature Source Temporal Pulse Rate 110 H Respiratory Rate 22 H Respiratory Effort Respiratory Pattern Blood Pressure 121/84 H Blood Pressure Mean 96 Pulse Ox 99 Oxygen Delivery Method Nasal Cannula Oxygen Flow Rate (L/min) 2 Positive cachectic General Appearance ED: cachectic and NAD; Negative for pallor Nutritional Appearance: cachectic HEENT Reports dry mucous membranes Negative for trauma Mouth ED: Yes dry mucous membranes Mouth: dry mucous membranes Eyes PERRL and EOMs intact bilaterally Neck no lymphadenopathy and supple Chest Wall inspection of chest normal and palpation of chest normal Resp normal respiratory effort Auscultation: wheezes throughout Cardio regular rhythm Rate: tachycardic Extremity normal to inspection Neuro oriented x3 and CN's II-XII intact bilaterally Sensorium / Orientation: alert Psych mental status grossly normal Skin General Skin Exam: Negative for jaundice or pallor MDM MDM MDM Narrative Medical decision making narrative: Patient seen and evaluated on arrival. He is alert and awake but slightly confused. He is hallucinating. He does meet SIRS criteria so sepsis work-up was started. EKG is sinus rhythm with a ventricular of 116 bpm without sign of ischemic change on my interpretation. The radiologist did interpret the chest x-ray as a questionable nodular density in the right lung. On my interpretation I do see this area however the right lower lobe appears to have an area of lucency. There is some lung markings through here. Given the abnormal finding I will obtain a CT of the chest. Since it was reported hypoxia will get a CTA. CBC shows a slight leukocytosis of 11.8. Hemoglobin hematocrit are stable. Platelets are normal. Coagulation studies are within normal limits. Creatinine is 0.83. Glucose is 131 and sodium is 125. His hyponatremia appears to be new. Lactic acid was elevated at 2.1. LFTs are normal. Patient has remained stable here on his baseline 2 L of oxygen. Since he was wheezing on his initial exam I did order breathing treatments and Solu-Medrol. On reevaluation he is doing well. Wheezing is diminished. Again he is maintaining O2 saturations in the high 90s on his baseline oxygen. Radiologist did call me about the CTA of the chest which showed concern for spiculated nodules in the right upper lobe concerning for malignancy as well as a small to moderate pneumothorax on the right. Patient was discussed with Dr. Dc who at this time felt that the pneumothorax was small and would not be amenable to pigtail. She recommended keeping the patient on oxygen and rechecking a chest x-ray in the morning and if this is changed at that point she can determine whether to put in a pigtail. After speaking with her I did tell her I would talk to his sister who is his only family member that speaks to him and see what his CODE STATUS is as far as his wishes for intubation or advanced procedures. After I went off the phone I did speak with his sister, Natividad Marroquin, who stated that they had both seen both of their parents have long drawn out deaths with ventilators and they both expressed to each other the past that they would not want this for themselves. She specifically states that on his last admission to the hospital that he states that he would not want any CPR or be on a ventilator. I discussed with her that it is possible that the pneumothorax could get bigger and at some point may need a pigtail or chest tube and that he would be monitored for this. I did express to her that with the new findings of concern for malignancy that if he does get better from the pneumothorax standpoint he would need screening for cancer and work-up for this. She stated that he has previously expressed some desire to have a lung transplant however he has been unable to quit smoking and is c ontinuously become worse physically. She states that she spoke with his roommate who stated that he had been having confusion worsening over the last days to weeks. She is not able to narrow down. She did state that his roommate had concerned that he possibly could be smoking methamphetamine with his confusion. His roommate did state that when he goes to sleep at night he shakes. His sister also states that he expresses concern that he is afraid to go to bed at night because he thinks he will wake up. Patient currently is very confused and I do not believe he has at this point the ability to make a decision about advanced directives. His sister did state that she wanted him to be DNR comfort care and she does not want any curative measures. Specifically she stated CPR or intubations. She expressed the same wishes to his nurse over the telephone. Patient was discussed at length with the hospitalist. As requested by Dr. Dc the patient will go up stairs with a pigtail at the bedside in case he does require this. Impression: 1. Altered mental status 2. Right-sided pneumothorax 3. Elevated lactic acid 4. Tachycardia 5. Hyponatremia 6. Spiculated right lung mass 7. COPD exacerbation Lab Data Labs: Laboratory Results - last 24 hr 08/16/21 08/16/21 08/16/21 21:30 21:30 21:30 WBC 11.8 H RBC 4.53 L Hgb 14.2 Hct 44.2 MCV 97.6 H MCH 31.3 MCHC 32.1 RDW Std Deviation 44.2 H RDW Coeff of Kristopher 12.3 Plt Count 289 MPV 8.8 Immature Gran % (Auto) 0.300 Neut % (Auto) 85.8 H Lymph % (Auto) 4.8 L [place] % (Auto) 8.7 Eos % (Auto) 0.1 Baso % (Auto) 0.3 Absolute Neuts (auto) 10.1 H Absolute Lymphs (auto) 0.56 L Nucleated RBC % 0 Differential Comment SCANNED PT 11.9 INR 0.9 APTT 33.1 Sodium 125 L Potassium 4.9 Chloride 77 L Carbon Dioxide 42.0 H Anion Gap 6 BUN 19 H Creatinine 0.83 Estim Creat Clear Calc 66.81 Est GFR (MDRD) Af Amer 122 Est GFR (MDRD) Non-Af 101 BUN/Creatinine Ratio 22.8 H Glucose 131 H Lactic Acid Calcium 9.6 Total Bilirubin 0.50 AST 30 ALT 19 Alkaline Phosphatase 73 Total Protein 8.5 H Albumin 4.5 Globulin 4.0 Albumin/Globulin Ratio 1.1 Urine Color Urine Clarity Urine pH Ur Specific [place] Urine Protein Urine Glucose (UA) Urine Ketones Urine Occult Blood Urine Nitrite Urine Bilirubin Urine Urobilinogen Ur Leukocyte Esterase Urine RBC Urine WBC Ur Squamous Epith Cells Urine Bacteria Urine Mucus Ethyl Alcohol 08/16/21 08/16/21 08/16/21 21:30 21:30 23:44 WBC RBC Hgb Hct MCV MCH MCHC RDW Std Deviation RDW Coeff of Kristopher Plt Count MPV Immature Gran % (Auto) Neut % (Auto) Lymph % (Auto) [place] % (Auto) Eos % (Auto) Baso % (Auto) Absolute Neuts (auto) Absolute Lymphs (auto) Nucleated RBC % Differential Comment PT INR APTT Sodium Potassium Chloride Carbon Dioxide Anion Gap BUN Creatinine Estim Creat Clear Calc Est GFR (MDRD) Af Amer Est GFR (MDRD) Non-Af BUN/Creatinine Ratio Glucose Lactic Acid 2.1 H* Calcium Total Bilirubin AST ALT Alkaline Phosphatase Total Protein Albumin Globulin Albumin/Globulin Ratio Urine Color Yellow Urine Clarity Clear Urine pH 6.0 Ur Specific [place] 1.025 Urine Protein 100 H Urine Glucose (UA) Normal Urine Ketones 15 H Urine Occult Blood 25 H Urine Nitrite Negative Urine Bilirubin Negative Urine Urobilinogen Normal Ur Leukocyte Esterase Negative Urine RBC 0-5 SEEN Urine WBC 0 SEEN Ur Squamous Epith Cells 0 SEEN Urine Bacteria 1+ Urine Mucus 1+ Ethyl Alcohol < 3.0 Radiography Diagnostic Testing: Clinical Impression(s) from Imaging Studies Chest X-Ray 08/16/21 21:46 IMPRESSION: COPD. Questionable nodular density in the right mid lateral lung field as above. Consider chest CT to further evaluate Electronically Signed: Gregory Platt DO at 22:06 EDT Tel , Service support , Chest CTA 08/16/21 22:51 IMPRESSION: Negative for pulmonary embolism or thoracic aortic dissection. Severe emphysema and COPD however, small to moderate right pneumothorax has developed. Additionally, spiculated nodules in the right upper lobe suspicious for malignancy. N.B. : The above Results were Read Back by Gregory Platt DO to Dr. Charlie DO, and understanding confirmed on 08/17/2021 00:09:21 (ET). Electronically Signed: Gregory Platt DO at 0:10 EDT Tel , Service support , ADDENDUM: 08/17/21 0017 IMPRESSION: Negative for pulmonary embolism or thoracic aortic dissection. Severe emphysema and COPD however, small to moderate right pneumothorax has developed. Additionally, spiculated nodules in the right upper lobe suspicious for malignancy. N.B. : The above Results were Read Back by Gregory Platt DO to Dr. Charlie DO, and understanding confirmed on 08/17/2021 00:09:21 (ET). Electronically Signed: Gregory Platt DO at 0:10 EDT Tel , Service support , Discharge Plan Triage Chief Complaint: Confusion ED Provider: Prem Guerra Dx/Rx/DC Orders Prescriptions: No Action prednisone 10 mg tablet 10 mg PO QDAY Qty: 90 RF: 3 azithromycin 250 mg tablet 250 mg PO QDAY Qty: 36 RF: 3 Trelegy Ellipta 200-62.5-25 mcg blister with device 1 inh inhalation DAILY Qty: 60 RF: 6 albuterol sulfate 90 mcg/actuation HFA aerosol inhaler 1 - 2 puff INHALATION Q4H PRN PRN (Reason: shortness of breath or wheezing) Qty: 1 RF: 6 metoprolol tartrate 25 MG tablet 12.5 mg PO BID Qty: 60 RF: 0 Primary Care Provider: [facility] Jodi Tapia Referrals: [facility],Jodi Munoz [Primary Care Provider] -
[2021-08-16 21:41] LABS: Absolute Lymphocyte Count 0.56 X10^3/uL (0.83-4.51); Absolute Neutrophil Count 10.1 X10^3/uL (2.0-7.7); Basophil# 0.03 X10^3/uL; Basophil% 0.3 % (0-1); Eosinophil# 0.01 X10^3/uL; Eosinophils% 0.1 % (0-5); Hematocrit 44.2 % (40-54); Hemoglobin 14.2 g/dL (13.0-16.5); Lymphocyte # 0.56 X10^3/ul (0.83-4.51); Lymphocyte % 4.8 % (19-41); Mean Corp Hgb Conc 32.1 g/dL (32-36); Mean Corpuscular Hgb 31.3 pg (27.0-32.0); Mean Corpuscular Volume 97.6 fL (80-94); Mean Platelet Vol. 8.8 fl (6.2-12.0); Monocyte# 1.02 X10^3/uL; Monocyte% 8.7 % (0-10); NRBC Flagged by Analyzer 0 % (0-5); Neutrophil # 10.12 X10^3/uL (2.7-7.7); Neutrophil % 85.8 % (47-70); POSITIVE DIFFERENTIAL YES; Platelet Count 289 K/mm3 (150-450); RBC Distribution Width CV 12.3 % (11.6-14.6); RBC Distribution Width SD 44.2 fl (35.1-43.9); Red Blood Count 4.53 M/mm3 (4.6-6.2); White Blood Count 11.8 K/mm3 (4.4-11.0)
[2021-08-16 21:45] VITALS: BP 145/99; PULSE 114; RESP 24; O2SAT 99
--- NOTE | 2021-08-16 21:46 | RAD_ITS ---
STUDY: X-RAY CHEST REASON FOR EXAM: Male, 56 years old. hypoxia TECHNIQUE: Single AP portable view of the chest. COMPARISON: None. FINDINGS: There is hyperinflation of the lungs consistent with chronic obstructive lung disease (COPD). In the right lateral midlung field, there is a questionable nodule versus infiltrate measuring 2.4 x 1.6 cm. Normal size heart. Normal mediastinum and akash. Normal visualized pulmonary arteries. Normal visualized aortic arch and descending thoracic aorta. Normal visualized thoracic spine. Normal visualized ribs, clavicles, and shoulders. There is no demonstrated abnormality of the visualized soft tissue structures of the upper abdomen. RAD/Chest 1 View (Portable) IMPRESSION: COPD. Questionable nodular density in the right mid lateral lung field as above. Consider chest CT to further evaluate Electronically Signed: Gregory Platt DO at 22:06 EDT Tel , Service support ,
[2021-08-16] MEDS: Ipratropium/Albuterol Sulfate 3 ML AMPUL.NEB INHALATION (21:48)
[2021-08-16] MEDS: Albuterol 2.5 MG/3 ML VIAL.NEB. INHALATION (21:48)
[2021-08-16] MEDS: MethylPREDNISolone 125 MG/2 ML Vial IV (21:48)
--- NOTE | 2021-08-16 22:00 | ED.RN ---
pt hallucinating and seeing a girl in the room. pt was not in distress and is oriented to self and time.
[2021-08-16 22:07] LABS: International Normalized Ratio 0.9; Prothrombin Time (Protime)PT. 11.9 SECONDS (11.7-14.9)
[2021-08-16 22:13] VITALS: PULSE 102; RESP 24
[2021-08-16 22:13] LABS: ALB/GLOB Ratio 1.1 RATIO (0.9-2.4); AST(SGOT) 30 U/L (15-37); Alanine Aminotransfer ALT/SGPT 19 U/L (16-61); Albumin, Serum 4.5 g/dL (3.2-5.0); Alkaline Phosphatase 73 U/L (45-117); Anion Gap 6 (5-15); BUN 19 mg/dL (7-18); BUN/Creat Ratio 22.8 RATIO (10-20); Calcium,Total 9.6 mg/dL (8.5-10.1); Chloride 77 mmol/L (98-107); Creatinine, Serum 0.83 mg/dL (0.70-1.30); EST Glomerular Filtration Rate 101 mL/min (>60); Est Glom Filt Rate - Afr Amer 122 mL/min (>60); Estimated Creatinine Clearance 66.81 ml/min; Glucose 131 mg/dL (74-106); Potassium 4.9 mmol/L (3.5-5.1); Protein, Total 8.5 g/dL (6.4-8.2); Sodium Level 125 mmol/L (136-145)
[2021-08-16 22:18] LABS: Lactic Acid 2.1 mmol/L (0.4-1.9)
[2021-08-16 22:22] LABS: Differential Indicated SCAN CRITERIA MET
[2021-08-16 22:29] LABS: Differential Comment SCANNED
[2021-08-16 22:34] LABS: Partial Thromboplast Time 33.1 Seconds (24.1-36.2)
--- NOTE | 2021-08-16 22:51 | CT_ITS ---
STUDY: CTA CHEST REASON FOR EXAM: Male, 56 years old. hypoxia RADIATION DOSAGE (If Supplied By Facility): CTDIvol = ( 5.46 ) mGy, DLP = ( 185.69 ) mGycm TECHNIQUE: The examination was performed with the intravenous administration of IV 75mL [id number]-[id number]. Post-processing of the angiographic images was performed, with multiplanar reformation and 3D reconstruction. Individualized dose optimization techniques were used for this CT. COMPARISON: CTA chest dated 04/23/2019 FINDINGS: Normal enhancement of the main pulmonary artery and right and left pulmonary arteries. Normal enhancement of the bilateral peripheral pulmonary arteries. There is no demonstrated pulmonary embolism. Normal thoracic aorta and visualized great vessels. There is no demonstrated aortic dissection. Normal heart and pericardium. Normal mediastinum. Normal hilar regions. Normal visualized trachea and bronchi. The lungs are hyper expanded, with flattening of the hemidiaphragms. Small to moderate right pneumothorax. No evidence of tension component. Spiculated nodule in the right upper lobe along the fissure measuring 1.5 x 1.1 cm. Additional spiculated nodule in the left lung apex measuring 1.1 cm. Severe diffuse emphysema. Stable fibronodular thickening in the right lung apex. Normal pleura. Normal chest wall structures. There are degenerative changes of thoracic spine. Normal visualized upper abdomen. CT/CTA Chest W/WO Contrast IMPRESSION: Negative for pulmonary embolism or thoracic aortic dissection. Severe emphysema and COPD however, small to moderate right pneumothorax has developed. Additionally, spiculated nodules in the right upper lobe suspicious for malignancy. N.B. : The above Results were Read Back by Gregory Platt DO to Dr. Charlie DO, and understanding confirmed on 08/17/2021 00:09:21 (ET). Electronically Signed: Gregory Platt DO at 0:10 EDT Tel , Service support ,
[2021-08-16 23:07] VITALS: BP 121/84; PULSE 110; RESP 22; TEMP 36.8; O2SAT 99
[2021-08-16 23:47] LABS: Squamous Epithelial Cells - UA 0 SEEN /hpf (0-5); White Blood Cells 0 SEEN /hpf (0-5)
[2021-08-16 23:48] LABS: Color, Urine Yellow (Yellow); Glucose, Dipstick Normal (Normal); Ketone-Dipstick 15 mg/dl (Negative); Leukocyte Esterase-Dipstick Negative /ul (Negative); Nitrite-Dipstick Negative (Negative); Occult Blood-Urine 25 /ul (Negative); Protein-Dipstick 100 mg/dl (Negative); Specific Gravity, Urine 1.025 (1.002-1.030); Urine Bilirubin Dipstick Negative (Negative); Urine Clarity Clear (Clear); Urine Urobilinogen Normal (Normal)
[2021-08-16 23:49] LABS: Alcohol, Blood (Medical)-Serum < 3.0 mg/dL
[2021-08-17] VITALS (10 sets, daily range): BP systolic 114–156; BP diastolic 65–99; PULSE 87–139; RESP 16–25; TEMP 36.1–36.9; O2SAT 90–100
[2021-08-17 00:40] LABS: Bacteria 1+ /hpf (None Seen); Mucous, Urine 1+ /hpf (<or=2+); Red Blood Cells-Urine 0-5 SEEN /hpf (0-5)
--- NOTE | 2021-08-17 01:13 | ED.RN ---
Addendum entered by Betty Saldana 08/17/21 01:20: MAY TALK TO HIM AND GIVE MEDICAL INFORMATION PER NEXT OF KIN MIRANDA Original Note: ROOMMATE/FRIEND SYMONE ANTONIO [phone]
--- NOTE | 2021-08-17 01:14 | CT_ITS ---
STUDY: CT BRAIN WITHOUT CONTRAST REASON FOR EXAM: Male, 56 years old. altered mental status RADIATION DOSAGE (If Supplied By Facility): CTDIvol = ( 44.99 ) mGy, DLP = ( 1082.95 ) mGycm TECHNIQUE: Transaxial CT imaging of the brain was performed without administration of intravenous contrast material. Individualized dose optimization techniques were used for this CT. COMPARISON: No relevant priors. FINDINGS: Please note that IV contrast was administered for previous exam. Normal soft tissue structures. Normal calvarium. There is mild cerebral atrophy with widening of the extra-axial spaces and ventricular dilatation. There are areas of decreased attenuation within the white matter tracts of the supratentorial brain, consistent with microvascular disease changes. Normal basal ganglia and thalami. Normal brainstem. Normal cerebellum. There is no intracranial hemorrhage. There are no findings of an acute ischemic infarction. Normal visualized paranasal sinuses. CT/Brain/Head without Contrast IMPRESSION: Chronic involutional changes of the brain. Electronically Signed: Gregory Platt DO at 2:52 EDT Tel , Service support ,
--- NOTE | 2021-08-17 01:15 | HP.PCM_ITS ---
Documented by User: JESÚS Fields 08/17/21 01:41 HPI - General General Date of Admission: 08/17/21 Date of Service: 08/17/21 Chief Complaint: Altered mental status HPI Narrative JOSE GREENBERG, is a 56 M who presents with complaints of altered mental status. Patient's roommate and sister state patient has been confused and hallucinating for 2 to 3 days. Patient has a history of COPD and reports intermittent periods of confusion at baseline however it typically does not last days. Patient's roommate also reports that he is concerned patient is currently using drugs. Per patient he has not been eating for the past couple days and is unsure why. [facility] Medical History Alcohol abuse Asthma COPD (chronic obstructive pulmonary disease) COPD exacerbation Hypertension Severe malnutrition Smoker Tobacco abuse Home Medications albuterol sulfate 1 - 2 puff INHALATION Q4H PRN PRN #1 inhaler 01/06/21 [Rx Last Taken Unknown] metoprolol tartrate 12.5 mg PO BID #60 tab 01/07/21 [Rx Last Taken Unknown] azithromycin 250 mg tablet 250 mg PO QDAY #36 tablet 03/01/21 [Rx Last Taken Unknown] prednisone 10 mg tablet 10 mg PO QDAY #90 tablet 03/01/21 [Rx Last Taken Unknown] fluticasone fur. 200 mcg-umeclid 62.5 mcg-vilant 25 mcg inhalat.powder 1 inh INHALATION DAILY #60 ea 04/19/21 [Rx Last Taken Unknown] Allergy/AdvReac Type Severity Reaction Status Date / Time No Known Allergies Allergy Verified 08/16/21 23:48 Family History Father COPD (chronic obstructive pulmonary disease) Mother Heart disease COPD (chronic obstructive pulmonary disease) Surgical History Collapse of lung Social History Smoking Status: Current every day smoker tobacco type: cigarettes Tobacco: How many years used: 43 second hand exposure: Yes alcohol intake: current alcohol intake frequency: 0-2 drinks per day Alcohol type: beer substance use type: does not use ROS Review of Systems ROS Unobtainable: due to mental status Vital Signs Vital Signs Vital Signs: 08/16/21 21:05 08/16/21 21:10 08/16/21 21:21 Temperature 98.3 F 98.3 F Temperature Source Temporal Temporal Pulse Rate 117 H 117 H Respiratory Rate 30 H 30 H Respiratory Effort Respiratory Pattern Blood Pressure 116/99 H 116/99 H Blood Pressure Mean 104 104 Pulse Ox 97 97 Oxygen Delivery Method Nasal Cannula Nasal Cannula Nasal Cannula Oxygen Flow Rate (L/min) 2 2 2 08/16/21 21:43 08/16/21 21:45 08/16/21 22:13 Temperature Temperature Source Pulse Rate 114 H 102 H Respiratory Rate 24 H 24 H Respiratory Effort Short of Breath Respiratory Pattern Tachypnea Tachypnea Blood Pressure 145/99 H Blood Pressure Mean 114 Pulse Ox 99 Oxygen Delivery Method Nasal Cannula Oxygen Flow Rate (L/min) 2 08/16/21 23:07 Temperature 98.3 F Temperature Source Temporal Pulse Rate 110 H Respiratory Rate 22 H Respiratory Effort Respiratory Pattern Blood Pressure 121/84 H Blood Pressure Mean 96 Pulse Ox 99 Oxygen Delivery Method Nasal Cannula Oxygen Flow Rate (L/min) 2 Weight Weight: 106 lb 0.677 oz Body Mass Index (BMI) 13.9 Physical Exam Const General Appearance: lethargic Orientation / Consciousness: confused and lethargic HEENT normocephalic and head/scalp atraumatic Eyes conjunctivae normal and no scleral icterus Neck supple General: trachea midline Resp normal respiratory effort and normal air movement Effort and Inspection: tachypneic Auscultation: diminished lung sounds Cardio regular rate, regular rhythm, S1 normal heart sound, S2 normal heart sound and peripheral pulses 2+ throughout Rate: tachycardic GI normal to inspection, nondistended, normoactive bowel sounds, soft to palpation and non-tender Extremity normal capillary refill and no clubbing, cyanosis or edema General Extremity: no tenderness to palpation of joints or extremities Skin Skin Narrative: Patient has multiple scabbed areas to bilateral legs and arms in various stages of healing General Skin Exam: turgor normal Lesions: no lesions Rashes: no rashes Neuro Sensorium / Orientation: confused and lethargic Psych Thought Process: confused Results Lab / Micro Data Result Diagrams: 08/16/21 21:30 08/16/21 21:30 Labs: Laboratory Results - last 24 hr 08/16/21 21:30: WBC 11.8 H, RBC 4.53 L, Hgb 14.2, Hct 44.2, MCV 97.6 H, MCH 31.3, MCHC 32.1, RDW Std Deviation 44.2 H, RDW Coeff of Kristopher 12.3, Plt Count 289, MPV 8.8, Immature Gran % (Auto) 0.300, Neut % (Auto) 85.8 H, Lymph % (Auto) 4.8 L, [place] % (Auto) 8.7, Eos % (Auto) 0.1, Baso % (Auto) 0.3, Absolute Neuts (auto) 10.1 H, Absolute Lymphs (auto) 0.56 L, Nucleated RBC % 0, Differential Comment SCANNED 08/16/21 21:30: PT 11.9, INR 0.9, APTT 33.1 08/16/21 21:30: Sodium 125 L, Potassium 4.9, Chloride 77 L, Carbon Dioxide 42.0 H, Anion Gap 6, BUN 19 H, Creatinine 0.83, Estim Creat Clear Calc 66.81, Est GFR (MDRD) Af Amer 122, Est GFR (MDRD) Non-Af 101, BUN/Creatinine Ratio 22.8 H, Glucose 131 H, Calcium 9.6, Total Bilirubin 0.50, AST 30, ALT 19, Alkaline Phosphatase 73, Total Protein 8.5 H, Albumin 4.5, Globulin 4.0, Albumin/Globulin Ratio 1.1 08/16/21 21:30: Lactic Acid 2.1 H* 08/16/21 21:30: Ethyl Alcohol < 3.0 08/16/21 23:44: Urine Color Yellow, Urine Clarity Clear, Urine pH 6.0, Ur Specific [place] 1.025, Urine Protein 100 H, Urine Glucose (UA) Normal, Urine Ketones 15 H, Urine Occult Blood 25 H, Urine Nitrite Negative, Urine Bilirubin Negative, Urine Urobilinogen Normal, Ur Leukocyte Esterase Negative, Urine RBC 0-5 SEEN, Urine WBC 0 SEEN, Ur Squamous Epith Cells 0 SEEN, Urine Bacteria 1+, Urine Mucus 1+ 08/17/21 01:10: Ur Drug Screen Comment Micro: Microbiology 08/16/21 21:32 Nasal Secretion SARS-CoV-2 Antigen (Rapid) - Final Radiology Impression Chest X-Ray 08/16/21 21:46 IMPRESSION: COPD. Questionable nodular density in the right mid lateral lung field as above. Consider chest CT to further evaluate Electronically Signed: Gregory Platt DO at 22:06 EDT Tel , Service support , Chest CTA 08/16/21 22:51 IMPRESSION: Negative for pulmonary embolism or thoracic aortic dissection. Severe emphysema and COPD however, small to moderate right pneumothorax has developed. Additionally, spiculated nodules in the right upper lobe suspicious for malignancy. N.B. : The above Results were Read Back by Gregory Platt DO to Dr. Charlie DO, and understanding confirmed on 08/17/2021 00:09:21 (ET). Electronically Signed: Gregory Platt DO at 0:10 EDT Tel , Service support , ADDENDUM: 08/17/21 0017 IMPRESSION: Negative for pulmonary embolism or thoracic aortic dissection. Severe emphysema and COPD however, small to moderate right pneumothorax has developed. Additionally, spiculated nodules in the right upper lobe suspicious for malignancy. N.B. : The above Results were Read Back by Gregory Platt DO to Dr. Charlie DO, and understanding confirmed on 08/17/2021 00:09:21 (ET). Electronically Signed: Gregory Platt DO at 0:10 EDT Tel , Service support , Assessment & Plan Assessment/Plan (1) COPD exacerbation: (2) Hyponatremia: (3) Lactic acidosis: (4) Altered mental status: QUALIFIERS: Altered mental status type: delirium Qualified Code(s): R41.0 - Disorientation, unspecified PLAN: 1. Altered mental status -Unknown etiology -Admit to PCU for cardiac monitoring -Blood and urine cultures pending, no obvious source of infection at this time. -CT head due to new nodules identified on chest CT -CBC, BMP ordered daily -TSH and ammonia level ordered -Patient n.p.o., will obtain blood sugars every 6 hours to monitor for hypog lycemia -OT and PT to eval and treat 2. COPD exacerbation -O2 per protocol, 2 L nasal cannula baseline home O2 -Every 6 DuoNeb nebulizer treatments ordered along with as needed albuterol -Encourage incentive spirometry when patient alert unable to follow commands 3. Hyponatremia -Possibly SIADH secondary to newly identified lung masses -Urine osmolality, urine sodium, serum osmolality ordered. -Normal saline 125 mL/h ordered -1500 mL fluid restriction -Seizure precautions ordered 4. Pneumothorax -Small pneumothorax noted on chest x-ray, per surgery recommendation will obtain chest x-ray in a.m. for closer monitoring, No need for intervention at this time 5. Lactic acidosis -Initial lactic acid 2.1, will repeat per protocol -Normal saline 125 mL/h Will hold all p.o. medications until patient alert enough. DVT prophylaxis-subcu Lovenox This patient was seen by JUANA FieldsC under the supervision of Dr. Andres. Documented by User: Dr. Lincoln Andres MD 08/17/21 02:05 [facility] Medical History Alcohol abuse Asthma COPD (chronic obstructive pulmonary disease) COPD exacerbation Hypertension Severe malnutrition Smoker Tobacco abuse Home Medications albuterol sulfate 1 - 2 puff INHALATION Q4H PRN PRN #1 inhaler 01/06/21 [Rx Last Taken Unknown] metoprolol tartrate 12.5 mg PO BID #60 tab 01/07/21 [Rx Last Taken Unknown] azithromycin 250 mg tablet 250 mg PO QDAY #36 tablet 03/01/21 [Rx Last Taken Unknown] prednisone 10 mg tablet 10 mg PO QDAY #90 tablet 03/01/21 [Rx Last Taken Unknown] fluticasone fur. 200 mcg-umeclid 62.5 mcg-vilant 25 mcg inhalat.powder 1 inh INHALATION DAILY #60 ea 04/19/21 [Rx Last Taken Unknown] Allergy/AdvReac Type Severity Reaction Status Date / Time No Known Allergies Allergy Verified 08/16/21 23:48 Family History Father COPD (chronic obstructive pulmonary disease) Mother Heart disease COPD (chronic obstructive pulmonary disease) Surgical History Collapse of lung Social History Smoking Status: Current every day smoker tobacco type: cigarettes Tobacco: How many years used: 43 second hand exposure: Yes alcohol intake: current alcohol intake frequency: 0-2 drinks per day Alcohol type: beer substance use type: does not use Results Lab / Micro Data Result Diagrams: 08/16/21 21:30 08/16/21 21:30 Charges/Coding Addendum Addendum: Patient was seen and examined independently. I agree with assessment and plan by JESÚS Fields Patient is a 56-year-old male with a significant for tobacco abuse; and end- stage COPD on 2LPM RI who presents emergency department with bizarre behavior. Reportedly at the emergency department patient reported that he was seeing people dancing in his room. History was taken for emergency department doctor who discussed the case with patient's estranged sister Natividad Marroquin ([phone]) who made patient DNR CC because in the past they have each expressed to themselves to be DNR CC after watching their parents . Her sister or roommate was concerned the patient may be using methamphetamine. Reportedly per patient's roommate patient has been shaking at night when he is sleeping. At the emergency department CTA showed a small to moderate pneumothorax and a speculated mass. Emergent department doctor discussed the case with general surgery on-call who recommended chest x-ray in a.m. Physical exam: General: Cachectic; non talkative. Head: Normocephalic, atraumatic, no tenderness Eyes: PERRLA, EOMI ENT, no trauma, moist mucous membranes, no rhinorrhea Neck: Nontender, no spinal tenderness, deformities. CVS: Regular rate and rhythm. S1-S2 present. No murmur, gallop or rub. Respiratory : clear to auscultation bilaterally, chest wall nontender, no wheezing Abdomen: Scaphoid ;soft, nontender, nondistended, normal bowel sounds. : Deferred Back: Nontender, no CVA tenderness, no midline spinal tenderness, deformities, step-offs Extremities: Cachectic, no trauma Skin: Erythema coccyx Neuro: Hypo alert. Does not follow commands. Psychiatry: Hypo alert; patient does not follow commands; mask face. Acute encephalopathy Etiology unclear. With a spiculated mass in lungs on CT, head CT ordered. Check ammonia and TSH. Hyponatremia Likely SIADH from lung mass. Urine sodium and urine osmolality ordered. Serum osmolality ordered. Uric acid ordered. Fluid restriction and normal saline ordered. Trend BMP. COPD Does not appear to be in exacerbation. On home prednisone; azithromycin and Trelegy. Pulmicort and scheduled DuoNeb ordered.. Albuterol ordered. On home daily prednisone and azithromycin po per review of patient's hand i cutter notes. Solu-medrol 40 mg IV daily ordered. Lung mass CTA chest ordered. Spiculated mass in right lung seen on my interpretation. I agree with radiologist interpretation. Discussed further with patient when he is alert Pneumothorax Chest CTA with small to moderate right pneumothorax. On home oxygen 2L per nasal cannula. At the time of evaluation patient was on 3LPM nasal oxygen and with a sat of 100%. Titrate oxygen per protocol. ED doc discussed case with general surgery java solutions architect who said that from where the pneumothorax is it may not be amenable to chest tube; and recommended repeat CXR next day. Indeed patient is not requiring increased oxygen and there is no indication that this is not chronic. Indeed reportedly her sister reported that patient has a history of pneumothorax. Severe Protein calorie malnutrition BMI of 14.0 kg/m? and cachectic. NPO for now as patient is encephalopathic When patient is alert consider nutrition supplement and nutrition consult DVT prophylaxis SCD ordered. Avoid chemical thromboprophylaxis as we evaluate patient further for his pneumothorax. Visit Charges Inpatient E&M: 67421 Init Hosp L3
[2021-08-17 01:26] LABS: Amphetamine Urine VISTA POSITIVE (<1000 ng/mL); Barbiturate Urine VISTA NEGATIVE (< 200 ng/mL); Benzodiazepine Urine VISTA NEGATIVE (< 200 ng/mL); Cocaine Urine VISTA NEGATIVE (< 300 ng/mL); Ecstacy Urine VISTA POSITIVE (< 500 ng/mL); Methadone Urine VISTA NEGATIVE (< 300 ng/mL); PCP Urine VISTA NEGATIVE (< 25 ng/mL); THC Urine VISTA NEGATIVE (< 50 ng/mL); Vista UDS pH Range 6
[2021-08-17] MEDS: LORazepam 2 MG/ML Syringe IV (01:33)
[2021-08-17 01:38] LABS: Reflex Lactate? Y
[2021-08-17 01:39] LABS: Troponin-I HS 27 pg/mL (3.0-78.0)
[2021-08-17 01:52] LABS: Urine Sodium 8 mmol/L (Not Establ.)
[2021-08-17 02:18] LABS: Lactic Acid 1.8 mmol/L (0.4-1.9)
[2021-08-17 02:24] LABS: Osmolality, Serum 275 mOsm/KG (275-295)
[2021-08-17 02:24] LABS: Osmolality, Urine 664 mOsm/KG
--- NOTE | 2021-08-17 04:52 | ED.RN ---
DURING VISIT, PT EXPERIENCED VARYING EPISODES OF LETHARGY AND RESTLESSNESS. MEDICATED WITH LORAZEPAM IV FOR RESTLESSNESS, EFFECTIVE. TC PLACED TO PT SISTER, SHE REPORTS JOSE WOULD NOT WANT CPR OR INTUBATION. ELECTS FOR JOSE TO BE DNRCC. SISTER REQUESTS NO LIFE SAVING MEASURES. PROGNOSIS EXPLAINED TO SISTER BY DR. FRANK - HOSPITALIST. SISTER REQUESTS HOSPICE CONSULT. [facility] CALLED, WILL SEND NURSE IN AM. SISTER WILL BE ARRIVING TO [facility] ER AROUND 7AM TO SIGN HOSPICE PAPERS. REQUESTING TO BE SENT TO [facility] FOR SYMPTOM MANAGEMENT OF RESTLESSNESS AND SOB. DURING VISIT PT ALSO HAS PERIODS OF SHORTNESS OF BREATH WITH RAPID RESPIRATIONS.
[2021-08-17 06:01] LABS: Allen Test Positive; Base Excess 21 mmol/L (-2 to +2); Bicarbonate 51.7 mmol/L (22-26); Blood Gas Specimen Type ART; O2 Delivery Device NRB; PO2 76 mmHG (75-100); SITE L Radial; SO2 82 % (95-99); Total Carbon Dioxide > 50 mmol/L; pH 7.03 (7.35-7.45)
--- NOTE | 2021-08-17 06:11 | ED.RN ---
PTS PULSE OX STARTED DROPPING INTO THE 80'S. CHANGES THE PULSE OXIMETER CRYPTOGRAPHIC VULNERABILITY ANALYST HIS EAR. READING DID NOT IMPROVED. INCREASED O2 TO 5L NC. CONTINUED TO DROP LOW 44%. NON-REBREATHER PLACED. PT IS TAKING VERY SHALLOW BREATH AT THIS TIME AND NO RESPONSE WHEN READJUSTED PT IN THE BED. ON NON-REBREATHER 15L PT IS NOW AT 97%
[2021-08-17 06:16] LABS: pCO2 196.9 mmHg (35-45)
--- NOTE | 2021-08-17 06:18 | CPS ---
Critical abg values were noted and Isidoro Stark was notified by ELIZABET Jordan
--- NOTE | 2021-08-17 07:14 | ED.RN ---
PTS SISTER AND FAMILY ARRIVED, HOSPICE PAGED
--- NOTE | 2021-08-17 08:01 | ED.RN ---
HOSPICE IS AT BEDSIDE
== END 2021-08-17 10:08 | disposition hospice, inpatient (51) ==
PROVIDERS: Nurse Practitioner Family; Emergency Provider Student in an Organized Health Care Education/Training Program
DX: J96.02 Acute respiratory failure with hypercapnia (principal); J44.1 Chronic obstructive pulmonary disease with (acute) exacerbation; J93.9 Pneumothorax, unspecified; R41.82 Altered mental status, unspecified; E87.1 Hypo-osmolality and hyponatremia; E87.2 Acidosis; R00.0 Tachycardia, unspecified; R91.8 Other nonspecific abnormal finding of lung field; I10 Essential (primary) hypertension; E43 Unspecified severe protein-calorie malnutrition; F17.210 Nicotine dependence, cigarettes, uncomplicated; Z68.1 Body mass index [BMI] 19.9 or less, adult; Z99.81 Dependence on supplemental oxygen; Z79.52 Long term (current) use of systemic steroids; Z79.51 Long term (current) use of inhaled steroids; Z79.899 Other long term (current) drug therapy; Z66 Do not resuscitate
CPT/HCPCS: 36415; 36600; 70450; 71045; 71275; 80053; 80307; 81001; 82077; 82140; 82803; 83605; 83930; 83935; 84300; 84443; 84484; 85025; 85610; 85730; 87040; 87086; 87426; 93005; 94640; 96361; 96374; 96375; 99285; J7040; Q9967; A4216